=== PATIENT | male | born 1960 | race Two or more races ===

== ENCOUNTER → 2023-08-23 07:19 | Outpatient (CLI) | payer OTHER ==
[~2023-08-23 07:19] MED LIST: AMLODIPINE-OLM1 EAC2; ELIQUIS5 MG PO; GRALISE600 MG; LASIX20 MG; METFORMIN HCL1000 M2; VASOTEC20 MG
== END | disposition home or self-care (01) ==
LOC: NUCLEAR 07:19
DX: I87.2 Venous insufficiency (chronic) (peripheral) (principal); I50.9 Heart failure, unspecified; I48.91 Unspecified atrial fibrillation; R60.0 Localized edema

== ENCOUNTER 2023-08-23 09:01 | Emergency (ER) | payer OTHER ==
[~2023-08-23] VITALS: Ht 175.3 cm; Wt 118.8 kg
[2023-08-23] MEDS ORDERED: VASOTEC20 MG (09:28)
[2023-08-23] MEDS ORDERED: ELIQUIS5 MG PO (09:28)
[2023-08-23] MEDS ORDERED: METFORMIN HCL1000 M2 (09:29)
[2023-08-23] MEDS ORDERED: LASIX20 MG (09:29)
[2023-08-23] MEDS ORDERED: GRALISE600 MG (09:30)
[2023-08-23] MEDS ORDERED: AMLODIPINE-OLM1 EAC2 (09:30)
[2023-08-23] MEDS ORDERED: CEFTRIAXONE SODIUM 2,000 MG VIAL IV STA (09:51)
[2023-08-23 10:40] LABS: HEMOGLOBIN 11.4 g/dL (13-16.00); MEAN CELL VOLUME 82.2 fL (80.0-100.00); MEAN CORPUSCULAR HEMOGLOBIN 27.6 pg (27.00-32.0); MEAN CORPUSCULAR HGB CONC 33.6 g/dl (32.0-36.0); PLATELET COUNT 195 K/uL (150-450); RED BLOOD COUNT 4.14 M/uL (4.00-6.00); RED CELL DISTRIBUTION WIDTH 15.9 % (11.5-14.5)
[2023-08-23 11:50] LABS: CALCIUM 8.9 mg/dL (8.5-10.1); CREATININE SERUM 1.09 mg/dL (0.70-1.30); GFR 67.89; POTASSIUM 3.88 mEq/L (3.5-5.1)
[2023-08-23 12:24] LABS: PH,URINE 6.5 (5.0-8.0); URINE APPEARANCE Clear; URINE BILIRRUBIN Negative (NEGATIVE); URINE BLOOD Negative; URINE COLOR Yellow; URINE LEUKOCYTE Negative; URINE NITRATE Negative
[2023-08-23 12:25] LABS: URINE BACTERIA 7.5 uL (0.0-1933); URINE EPITHELIAL CELLS 1.6 uL (0.0-38.8); URINE WBC 4.5 uL (0.0-23.2)
[2023-08-23 12:26] LABS: URINE GLUCOSE >=1000 MG/DL (NEGATIVE); URINE PROTEIN 100 (NEGATIVE); URINE RBC 1.5 uL (0.0-20.8)
== END 2023-08-23 12:20 | disposition home or self-care (01) ==
LOC: ER 09:02
PROVIDERS: General Practice
DX: R60.0 Localized edema (principal); L03.115 Cellulitis of right lower limb
CPT/HCPCS: 36415; 96365; 99282; J0696

== ENCOUNTER 2023-09-09 14:59 | Emergency (ER) | payer OTHER ==
[~2023-09-09] VITALS: Ht 175.3 cm; Wt 118.8 kg
[2023-09-09] MEDS ORDERED: PROTONIX20 MG (15:49)
[2023-09-09] MEDS ORDERED: TRANDATE300 MG (15:49)
[2023-09-09 17:29] LABS: HEMATOCRIT 36.2 % (39.0-48.0); HEMOGLOBIN 12.2 g/dL (13-16.00); MEAN CELL VOLUME 83.9 fL (80.0-100.00); MEAN CORPUSCULAR HEMOGLOBIN 28.1 pg (27.00-32.0); MEAN CORPUSCULAR HGB CONC 33.6 g/dl (32.0-36.0); PLATELET COUNT 260 K/uL (150-450); RED BLOOD COUNT 4.32 M/uL (4.00-6.00); RED CELL DISTRIBUTION WIDTH 15.7 % (11.5-14.5)
[2023-09-09 17:49] LABS: INR 1.09; PARTIAL THROMBOPLASTIN TIME 31.4 SECONDS (22.0-34.0); PROTHROMBIN TIME 11.4 SECONDS (9.0-11.5)
[2023-09-09 17:53] LABS: ALBUMIN 3.9 gm/dL (3.4-5.0); BILIRUBIN TOTAL 0.53 mg/dL (0.3-1.2); CALCIUM 9.1 mg/dL (8.5-10.1); CREATININE SERUM 1.08 mg/dL (0.70-1.30); GFR 68.62; GLOBULINA 4.9 G/DL (2.4-3.5); POTASSIUM 3.72 mEq/L (3.5-5.1); TOTAL PROTEIN 8.8 gm/dL (6.4-8.2)
[2023-09-09 19:00] LABS: URINE BILIRRUBIN Negative (NEGATIVE); URINE BLOOD Negative; URINE COLOR Yellow; URINE GLUCOSE Negative (NEGATIVE); URINE KETONE Negative (NEGATIVE); URINE LEUKOCYTE Negative; URINE NITRATE Negative
[2023-09-09 19:05] LABS: URINE RBC 3.8 uL (0.0-20.8)
[2023-09-09 19:14] LABS: URINE APPEARANCE CLEAR; URINE BACTERIA 2.5 uL (0.0-1933); URINE CAST 0.15 uL (0.0-1.40); URINE EPITHELIAL CELLS 1.2 uL (0.0-38.8); URINE PROTEIN 300 (NEGATIVE); URINE WBC 0.6 uL (0.0-23.2)
[2023-09-09] MEDS ORDERED: levoFLOXacin IN DEXTROSE 5 % 500MG/100ML PIGGYBAG IV ONE ×2 (21:00→21:02)
== END 2023-09-09 23:49 | disposition home or self-care (01) ==
LOC: ER 15:00
PROVIDERS: Emergency Medicine
DX: S80.11XA Contusion of right lower leg, initial encounter (principal); E11.649 Type 2 diabetes mellitus with hypoglycemia without coma; Z79.84 Long term (current) use of oral hypoglycemic drugs; Z20.822 Contact with and (suspected) exposure to COVID-19
CPT/HCPCS: 36415; 73590; 96365; 99283; J1956

== ENCOUNTER 2024-02-04 11:16 | Inpatient (IN) | payer OTHER ==
[~2024-02-04] VITALS: Ht 175.3 cm; Wt 118.8 kg
[~2024-02-04 11:16] MED LIST changes: +PROTONIX20 MG; +TRANDATE300 MG
[2024-02-04 12:00] VITALS: BP 125/52; O2SAT 99
[2024-02-04] MEDS ORDERED: AMLODIPINE-BEN1 EAC1 PO (12:00)
[2024-02-04] MEDS ORDERED: ADMELOG100 UNIT/1 SUBCUTANEO (12:01)
[2024-02-04 13:12] LABS: HEMATOCRIT 33.7 % (39.0-48.0); HEMOGLOBIN 10.9 g/dL (13-16.00); MEAN CELL VOLUME 85.7 fL (80.0-100.00); MEAN CORPUSCULAR HEMOGLOBIN 27.7 pg (27.00-32.0); MEAN CORPUSCULAR HGB CONC 32.4 g/dl (32.0-36.0); PLATELET COUNT 180 K/uL (150-450); RED BLOOD COUNT 3.93 M/uL (4.00-6.00); RED CELL DISTRIBUTION WIDTH 15.6 % (11.5-14.5)
[2024-02-04 13:47] LABS: ALBUMIN 3.7 gm/dL (3.4-5.0); BILIRUBIN TOTAL 0.71 mg/dL (0.3-1.2); BILIRUBIN,CONJUGATED 0.3 mg/dL (0.0-0.2); BILIRUBIN,UNCONJUGATED 0.41 mg/dL (0.0-0.6); CALCIUM 8.9 mg/dL (8.5-10.1); CREATININE SERUM 1.46 mg/dL (0.70-1.30); GFR 48.46; POTASSIUM 4.45 mEq/L (3.5-5.1); TOTAL PROTEIN 8.3 gm/dL (6.4-8.2)
[2024-02-04 15:01] LABS: ABG PH 7.427 (7.35-7.45); ABG pCO2 40.3 mmHg (35-45)
[2024-02-04 15:02] LABS: BASE EXCESS 1.6 mmol/l; SaO2 90.2 %; Tco2 27.2 mmol/l; allen test SATISFACTORY; o2 21 %; puncture site RADIAL LEFT
[2024-02-04 17:10] LABS: PH,URINE 6.5 (5.0-8.0); URINE APPEARANCE Clear; URINE BILIRRUBIN Negative (NEGATIVE); URINE BLOOD Negative; URINE COLOR Yellow; URINE GLUCOSE Negative (NEGATIVE); URINE KETONE Negative (NEGATIVE); URINE LEUKOCYTE Negative; URINE NITRATE Negative; URINE PROTEIN 30 (NEGATIVE); URINE UROBILINOGEN 0.2 E.U./dl
[2024-02-04 17:14] LABS: URINE BACTERIA 13.4 uL (0.0-1933); URINE EPITHELIAL CELLS 2.3 uL (0.0-38.8); URINE RBC 3.6 uL (0.0-20.8); URINE WBC 4.8 uL (0.0-23.2)
[2024-02-04] MEDS ORDERED: IPRATROPIUM BROMIDE 0.5 MG/2.5 ML AMPUL.NEB IH SCH (19:01)
[2024-02-04] MEDS ORDERED: NITROGLYCERIN IN 5 % DEXTROSE 250 ML IV SCH (19:04)
[2024-02-04] MEDS ORDERED: FUROsemide 20 MG/2 ML VIAL IV SCH (19:04)
[2024-02-04] MEDS ORDERED: CEFTRIAXONE SODIUM 2,000 MG in 0.9 % SODIUM CHLORIDE 100 ML IV SCH (19:09)
[2024-02-04] MEDS ORDERED: INSULIN LISPRO 1,000 UNIT/10 ML UNITS SUBCUTANEO PRN (19:15)
[2024-02-04] MEDS ORDERED: DEXTROSE 50 % IN WATER 0.5 G/ML DISP.SYRIN IV PRN (19:15)
[2024-02-04] MEDS ORDERED: APIXABAN 5 MG TABLET PO SCH (21:00)
[2024-02-04 21:43] VITALS: BP 164/60; O2SAT 96
[2024-02-04 21:46] VITALS: BP 164/60
[2024-02-04] MEDS ORDERED: CEFTRIAXONE SODIUM 2,000 MG VIAL ONE (22:23)
[2024-02-04] MEDS ORDERED: FUROsemide 20 MG/2 ML VIAL ONE (22:23)
[2024-02-04] MEDS ORDERED: NITROGLYCERIN IN 5 % DEXTROSE 50 MG/250 ML BOTTLE IV ONE (22:24)
[2024-02-04] MEDS ORDERED: INSULIN LISPRO 1,000 UNIT/10 ML UNITS SUBCUTANEO ONE (23:00)
[2024-02-04 23:28] VITALS: BP 129/52; O2SAT 100
[2024-02-04 23:28] LABS: INR 1.17; PARTIAL THROMBOPLASTIN TIME 26.1 SECONDS (22.0-34.0); PROTHROMBIN TIME 12.6 SECONDS (9.0-11.5)
[2024-02-05] VITALS (22 sets, daily range): BP systolic 125–190; BP diastolic 56–87; O2SAT 89–100
[2024-02-05] MEDS ORDERED: FUROsemide 20 MG/2 ML VIAL ONE (00:14)
[2024-02-05] MEDS ORDERED: IPRATROPIUM BROMIDE 0.5 MG/2.5 ML AMPUL.NEB IH ONE ×2 (00:14→08:33)
[2024-02-05] MEDS ORDERED: LEVALBUTEROL HCL 1.25 MG/3 ML SOLUTION IH ONE (08:28)
[2024-02-05] MEDS ORDERED: NITROGLYCERIN IN 5 % DEXTROSE 250 ML IV SCH (08:30)
[2024-02-05] MEDS ORDERED: FAMOTIDINE/PF 20 MG in 0.9 % SODIUM CHLORIDE 8 ML IV PUSH SCH (09:00)
[2024-02-05] MEDS ORDERED: ATORVASTATIN CALCIUM 40 MG TABLET PO SCH (09:00)
[2024-02-05] MEDS ORDERED: LABETALOL HCL 300 MG TABLET PO SCH (09:00)
[2024-02-05] MEDS ORDERED: INSULIN LISPRO 1,000 UNIT/10 ML UNITS SUBCUTANEO ONE ×2 (09:09→13:39)
[2024-02-05] MEDS ORDERED: AMLODIPINE BESYLATE 5 MG TABLET PO SCH (10:16)
[2024-02-05] MEDS ORDERED: hydrALAZINE HCL 25 MG TABLET PO SCH (10:20)
[2024-02-05 12:12] LABS: ALT/SGPT 20 U/L (12-78); AST/SGOT 24 U/L (15-37); LDH 203 U/L (87-241); PHOSPHOKINASE CREATININE 311 U/L (39-308)
[2024-02-05 16:23] LABS: ABG PH 7.425 (7.35-7.45); ABG pCO2 43.5 mmHg (35-45); SaO2 87.6 %
[2024-02-05 16:24] LABS: ABG PO2 51.9 mmHg (80-100); BASE EXCESS 3.1 mmol/l; BICARBONATE 27.9 mmol/l (23-25); Tco2 29.3 mmol/l; allen test SATISFACTORY; o2 36 %; puncture site RADIAL RIGHT
[2024-02-05] MEDS ORDERED: FUROsemide 20 MG/2 ML VIAL IV STA (16:42)
[2024-02-05] MEDS ORDERED: METOPROLOL SUCCINATE 50 MG TAB.SR.24H PO SCH (17:00)
[2024-02-05 18:42] LABS: ABG PH 7.426 (7.35-7.45); ABG PO2 114.6 mmHg (80-100); ABG pCO2 43.9 mmHg (35-45); BASE EXCESS 3.3 mmol/l; BICARBONATE 28.2 mmol/l (23-25); SaO2 98.6 %; Tco2 29.6 mmol/l; allen test SATISFACTORY; o2 100 %; puncture site RADIAL RIGHT
[2024-02-05] MEDS ORDERED: FUROsemide 20 MG/2 ML VIAL IV SCH (21:00)
[2024-02-06] VITALS (23 sets, daily range): BP systolic 143–184; BP diastolic 55–89; O2SAT 95–100
[2024-02-06 07:28] LABS: HEMATOCRIT 30.7 % (39.0-48.0); HEMOGLOBIN 10.5 g/dL (13-16.00); MEAN CELL VOLUME 84.3 fL (80.0-100.00); MEAN CORPUSCULAR HEMOGLOBIN 28.9 pg (27.00-32.0); MEAN CORPUSCULAR HGB CONC 34.3 g/dl (32.0-36.0); RED BLOOD COUNT 3.65 M/uL (4.00-6.00); RED CELL DISTRIBUTION WIDTH 15.2 % (11.5-14.5)
[2024-02-06 07:57] LABS: CALCIUM 8.6 mg/dL (8.5-10.1); CREATININE SERUM 1.13 mg/dL (0.70-1.30); GFR 65.13; PHOSPHOROUS 3.6 mg/dL (2.5-4.9); POTASSIUM 4.03 mEq/L (3.5-5.1)
[2024-02-06 08:04] LABS: PLATELET COUNT 117 K/uL (150-450)
[2024-02-06] MEDS ORDERED: hydrALAZINE HCL 25 MG,hydrALAZINE HCL 50 MG PO SCH (09:00)
[2024-02-06] MEDS ORDERED: CHLORHEXIDINE GLUCONATE 120 ML BOTTLE TOP ONE (10:00)
[2024-02-06] MEDS ORDERED: CLEVIDIPINE BUTYRATE 100 ML IV SCH (12:45)
[2024-02-06] MEDS ORDERED: FUROsemide 20 MG/2 ML VIAL IV SCH (17:00)
[2024-02-07] VITALS: BP 170/68; O2SAT 95
[2024-02-07 18:46] LABS: PLEURAL FLUID APPEARANCE CLOUDY; PLEURAL FLUID COLOR YELLOW
[2024-02-07 19:03] LABS: TP PLEURAL FLUID 2.3 g/dl
[2024-02-07 20:34] LABS: MONONUCLEAR 83 %; POLYMORPHONUCLEAR 17 %
[2024-02-08 06:22] LABS: HEMATOCRIT 31.9 % (39.0-48.0); HEMOGLOBIN 10.2 g/dL (13-16.00); MEAN CELL VOLUME 88.5 fL (80.0-100.00); MEAN CORPUSCULAR HEMOGLOBIN 28.4 pg (27.00-32.0); MEAN CORPUSCULAR HGB CONC 32.1 g/dl (32.0-36.0); PLATELET COUNT 198 K/uL (150-450); RED BLOOD COUNT 3.61 M/uL (4.00-6.00); RED CELL DISTRIBUTION WIDTH 15.6 % (11.5-14.5)
[2024-02-08 07:29] LABS: ALBUMIN 2.6 gm/dL (3.4-5.0); BILIRUBIN TOTAL 1.04 mg/dL (0.3-1.2); CALCIUM 8.2 mg/dL (8.5-10.1); CREATININE SERUM 0.97 mg/dL (0.70-1.30); GFR 77.67; MAGNESIUM 2.1 mg/dL (1.8-2.4); PHOSPHOROUS 2.7 mg/dL (2.5-4.9); POTASSIUM 3.55 mEq/L (3.5-5.1); TOTAL PROTEIN 6.6 gm/dL (6.4-8.2)
[2024-02-08 07:30] VITALS: BP 161/64; O2SAT 100
[2024-02-08 10:05] LABS: ABG PH 7.434 (7.35-7.45); ABG PO2 157.5 mmHg (80-100); ABG pCO2 40.9 mmHg (35-45); BASE EXCESS 2.3 mmol/l; BICARBONATE 26.7 mmol/l (23-25); SaO2 99.4 %; allen test SATISFACTORY; o2 28 %; puncture site RADIAL LEFT
[2024-02-08 12:28] VITALS: BP 160/61; O2SAT 100
[2024-02-08] MEDS ORDERED: hydrALAZINE HCL 50 MG TABLET PO NR (12:45)
[2024-02-08 15:40] VITALS: BP 163/47; O2SAT 100
[2024-02-08] MEDS ORDERED: AMLODIPINE BESYLATE 5 MG TABLET PO SCH (17:00)
[2024-02-08] MEDS ORDERED: hydrALAZINE HCL 50 MG TABLET PO SCH (17:00)
[2024-02-08] MEDS ORDERED: ISOSORBIDE DINITRATE 20 MG TABLET PO SCH (17:00)
[2024-02-08] MEDS ORDERED: METROnidazole 500 MG TABLET PO SCH (17:00)
[2024-02-08 18:18] VITALS: O2SAT 96
[2024-02-08 18:54] VITALS: BP 155/63; O2SAT 96
[2024-02-08 23:48] VITALS: BP 168/68; O2SAT 97
[2024-02-09] VITALS (7 sets, daily range): BP systolic 160–180; BP diastolic 75–76; O2SAT 96–100
[2024-02-09] MEDS ORDERED: IRBESARTAN 150 MG TABLET PO SCH (09:00)
[2024-02-09] MEDS ORDERED: IRBESARTAN 300 MG TABLET PO SCH (09:00)
[2024-02-09] MEDS ORDERED: AMLODIPINE BESYLATE 5 MG TABLET PO SCH (09:00)
[2024-02-09] MEDS ORDERED: NIFEDIPINE 60 MG TAB.SA.OSM PO SCH (16:34)
[2024-02-09] MEDS ORDERED: HYDROCHLOROTHIAZIDE 12.5 MG CAPSULE PO SCH (16:41)
[2024-02-09] MEDS ORDERED: FUROsemide 20 MG/2 ML VIAL IV SCH (21:00)
[2024-02-10] VITALS (8 sets, daily range): BP systolic 137–194; BP diastolic 67–75; O2SAT 95–99
[2024-02-10 06:28] LABS: HEMATOCRIT 32.7 % (39.0-48.0); HEMOGLOBIN 11.3 g/dL (13-16.00); MEAN CELL VOLUME 82.5 fL (80.0-100.00); MEAN CORPUSCULAR HEMOGLOBIN 28.4 pg (27.00-32.0); MEAN CORPUSCULAR HGB CONC 34.4 g/dl (32.0-36.0); PLATELET COUNT 270 K/uL (150-450); RED BLOOD COUNT 3.97 M/uL (4.00-6.00); RED CELL DISTRIBUTION WIDTH 15.1 % (11.5-14.5)
[2024-02-10 07:46] LABS: ALBUMIN 2.8 gm/dL (3.4-5.0); BILIRUBIN TOTAL 0.71 mg/dL (0.3-1.2); CALCIUM 8.5 mg/dL (8.5-10.1); CREATININE SERUM 0.86 mg/dL (0.70-1.30); GFR 89.25; GLOBULINA 4.3 G/DL (2.4-3.5); MAGNESIUM 2.3 mg/dL (1.8-2.4); PHOSPHOROUS 3.6 mg/dL (2.5-4.9); POTASSIUM 4.11 mEq/L (3.5-5.1); TOTAL PROTEIN 7.1 gm/dL (6.4-8.2)
[2024-02-10] MEDS ORDERED: NIFEDIPINE 30 MG TAB.SA.OSM PO STA (12:08)
[2024-02-10] MEDS ORDERED: HYDROCHLOROTHIAZIDE 12.5 MG CAPSULE PO STA (12:08)
[2024-02-10] MEDS ORDERED: LIPITOR40 M1 PO (14:51)
[2024-02-10] MEDS ORDERED: DOXAZOSIN MESYLA4 MG PO (14:51)
[2024-02-10] MEDS ORDERED: ELIQUIS5 MG PO (14:51)
[2024-02-10] MEDS ORDERED: ISOSORBIDE DINI20 MG PO (14:52)
[2024-02-10] MEDS ORDERED: AVAPRO300 MG PO (14:52)
[2024-02-10] MEDS ORDERED: HYDROCHLOROTHIA25 MG PO (14:53)
[2024-02-10] MEDS ORDERED: TOPROL XL50 M1 PO (14:53)
[2024-02-10] MEDS ORDERED: PROCARDIA XL90 MG PO (14:53)
[2024-02-10] MEDS ORDERED: HYDRALAZINE HCL50 MG PO (14:53)
[2024-02-10] MEDS ORDERED: ECOTRIN81 MG PO (14:54)
[2024-02-10] MEDS ORDERED: hydrALAZINE HCL 50 MG TABLET PO SCH (17:00)
[2024-02-10] MEDS ORDERED: DOXAZOSIN MESYLATE 4 MG TABLET PO SCH (17:00)
[2024-02-10] MEDS ORDERED: FAMOtidine 20 MG TABLET PO SCH (21:00)
[2024-02-11] MEDS ORDERED: FUROsemide 20 MG/2 ML VIAL IV SCH (09:00)
[2024-02-11] MEDS ORDERED: HYDROCHLOROTHIAZIDE 25 MG TABLET PO SCH (09:00)
[2024-02-11] MEDS ORDERED: NIFEDIPINE 90 MG TAB.SA.OSM PO SCH (09:00)
== END 2024-02-10 15:36 | disposition home or self-care (01) | DRG 291 ==
LOC: ER 11:18 → ICU 19:23 → ICU-2 19:23 → ICU 02-05 19:48 → MEDI 02-08 18:24
PROVIDERS: General Practice; Internal Medicine; Radiology Vascular & Interventional Radiology; ADMIT Internal Medicine; ATTEND Internal Medicine
PROC: BW24ZZZ Computerized Tomography (CT Scan) of Chest and Abdomen (ICD-10-PCS; 2024-02-04)
PROC: B54DZZZ Ultrasonography of Bilateral Lower Extremity Veins (ICD-10-PCS; 2024-02-04)
PROC: BW40ZZZ Ultrasonography of Abdomen (ICD-10-PCS; 2024-02-05)
PROC: B24BZZZ Ultrasonography of Heart with Aorta (ICD-10-PCS; 2024-02-05)
PROC: 0W993ZX Drainage of Right Pleural Cavity, Percutaneous Approach, Diagnostic (ICD-10-PCS; principal; 2024-02-07)
PROC: 02HV33Z Insertion of Infusion Device into Superior Vena Cava, Percutaneous Approach (ICD-10-PCS; 2024-02-07)
PROC: 4A12X4Z Monitoring of Cardiac Electrical Activity, External Approach (ICD-10-PCS; 2024-02-08)
DX: I11.0 Hypertensive heart disease with heart failure (principal); J18.9 Pneumonia, unspecified organism; N17.9 Acute kidney failure, unspecified; L03.116 Cellulitis of left lower limb; I48.20 Chronic atrial fibrillation, unspecified; K80.00 Calculus of gallbladder with acute cholecystitis without obstruction; I50.9 Heart failure, unspecified; E11.9 Type 2 diabetes mellitus without complications; Z79.4 Long term (current) use of insulin; E78.5 Hyperlipidemia, unspecified; D64.9 Anemia, unspecified; D69.6 Thrombocytopenia, unspecified; I25.10 Atherosclerotic heart disease of native coronary artery without angina pectoris

== ENCOUNTER 2024-04-02 12:28 | Inpatient (IN) | payer OTHER ==
[~2024-04-02] VITALS: Ht 175.3 cm; Wt 118.8 kg
[~2024-04-02 12:28] MED LIST changes: +ADMELOG100 UNIT/1 SUBCUTANEO; +AMLODIPINE-BEN1 EAC1 PO; +AVAPRO300 MG PO; +DOXAZOSIN MESYLA4 MG PO; +ECOTRIN81 MG PO; +HYDRALAZINE HCL50 MG PO; +HYDROCHLOROTHIA25 MG PO; +ISOSORBIDE DINI20 MG PO; +LIPITOR40 M1 PO; +PROCARDIA XL90 MG PO; +TOPROL XL50 M1 PO
[2024-04-02] MEDS ORDERED: FUROsemide 20 MG/2 ML VIAL IV ONE (13:15)
[2024-04-02] MEDS ORDERED: LEVALBUTEROL HCL 1.25 MG/3 ML SOLUTION IH ONE ×2 (13:15→14:30)
[2024-04-02] MEDS ORDERED: FUROsemide 20 MG/2 ML VIAL ONE (13:40)
[2024-04-02 14:04] LABS: HEMOGLOBIN 10.4 g/dL (13-16.00); MEAN CELL VOLUME 84.9 fL (80.0-100.00); MEAN CORPUSCULAR HEMOGLOBIN 27.6 pg (27.00-32.0); MEAN CORPUSCULAR HGB CONC 32.6 g/dl (32.0-36.0); PLATELET COUNT 192 K/uL (150-450); RED BLOOD COUNT 3.77 M/uL (4.00-6.00); RED CELL DISTRIBUTION WIDTH 16.4 % (11.5-14.5)
[2024-04-02 14:22] LABS: ALBUMIN 3.8 gm/dL (3.4-5.0); BILIRUBIN TOTAL 0.5 mg/dL (0.3-1.2); CALCIUM 8.9 mg/dL (8.5-10.1); CREATININE SERUM 2.44 mg/dL (0.70-1.30); GFR 26.71; GLOBULINA 5.1 G/DL (2.4-3.5); POTASSIUM 5.03 mEq/L (3.5-5.1); TOTAL PROTEIN 8.9 gm/dL (6.4-8.2)
[2024-04-02 14:33] LABS: PH,URINE 5.5 (5.0-8.0); URINE APPEARANCE Clear; URINE BILIRRUBIN Negative (NEGATIVE); URINE BLOOD Negative; URINE COLOR Yellow; URINE GLUCOSE Negative (NEGATIVE); URINE KETONE Negative (NEGATIVE); URINE LEUKOCYTE Negative; URINE NITRATE Negative; URINE PROTEIN Trace (NEGATIVE); URINE UROBILINOGEN 0.2 E.U./dl
[2024-04-02 14:37] LABS: URINE BACTERIA 10.9 uL (0.0-1933); URINE CAST 1.62 uL (0.0-1.40); URINE WBC 6.3 uL (0.0-23.2)
[2024-04-02 14:37] LABS: ABG PH 7.378 (7.35-7.45); ABG PO2 69.9 mmHg (80-100); ABG pCO2 40.9 mmHg (35-45); BASE EXCESS -1.5 mmol/l; BICARBONATE 23.5 mmol/l (23-25); SaO2 93.3 %; Tco2 24.8 mmol/l
[2024-04-02 14:45] LABS: URINE RBC 0.8 uL (0.0-20.8)
[2024-04-02 15:03] LABS: allen test SATISFACTORY; o2 21 %; puncture site RADIAL RIGHT
[2024-04-02 15:34] LABS: INR 1.05; PARTIAL THROMBOPLASTIN TIME 27.6 SECONDS (22.0-34.0); PROTHROMBIN TIME 11.4 SECONDS (9.0-11.5)
[2024-04-02] MEDS ORDERED: NIFEDIPINE 90 MG TAB.SA.OSM PO SCH (16:22)
[2024-04-02] MEDS ORDERED: DEXTROSE 50 % IN WATER 0.5 G/ML DISP.SYRIN IV PRN (16:30)
[2024-04-02] MEDS ORDERED: INSULIN LISPRO 1,000 UNIT/10 ML UNITS SUBCUTANEO PRN (16:30)
[2024-04-02] MEDS ORDERED: APIXABAN 2.5 MG TABLET PO SCH (20:24)
[2024-04-02] MEDS ORDERED: ISOSORBIDE DINITRATE 20 MG TABLET PO SCH (20:28)
[2024-04-02] MEDS ORDERED: hydrALAZINE HCL 50 MG TABLET PO SCH (20:29)
[2024-04-02 21:32] VITALS: BP 161/64
[2024-04-02 23:22] VITALS: BP 132/70; O2SAT 95
[2024-04-03] VITALS (7 sets, daily range): BP systolic 149–176; BP diastolic 68–82; O2SAT 92–97
[2024-04-03] MEDS ORDERED: FUROsemide 20 MG TABLET PO SCH (01:00)
[2024-04-03 06:10] LABS: HEMATOCRIT 30.1 % (39.0-48.0); HEMOGLOBIN 10.2 g/dL (13-16.00); MEAN CELL VOLUME 83.4 fL (80.0-100.00); MEAN CORPUSCULAR HEMOGLOBIN 28.2 pg (27.00-32.0); MEAN CORPUSCULAR HGB CONC 33.8 g/dl (32.0-36.0); PLATELET COUNT 193 K/uL (150-450); RED CELL DISTRIBUTION WIDTH 16.2 % (11.5-14.5)
[2024-04-03 07:33] LABS: ALBUMIN 3.6 gm/dL (3.4-5.0); BILIRUBIN TOTAL 0.66 mg/dL (0.3-1.2); CALCIUM 8.8 mg/dL (8.5-10.1); CREATININE SERUM 2.07 mg/dL (0.70-1.30); GFR 32.29; GLOBULINA 4.3 G/DL (2.4-3.5); PHOSPHOROUS 4.2 mg/dL (2.5-4.9); POTASSIUM 5.11 mEq/L (3.5-5.1); TOTAL PROTEIN 7.9 gm/dL (6.4-8.2)
[2024-04-03 07:46] LABS: TSH 6.42 uIU/mL (0.358-3.74)
[2024-04-03] MEDS ORDERED: PANTOPRAZOLE SODIUM 40 MG/VIAL VIAL IV SCH (09:00)
[2024-04-03] MEDS ORDERED: METOPROLOL SUCCINATE 50 MG TAB.SR.24H PO SCH ×2 (09:00→17:00)
[2024-04-03 09:29] LABS: ABG PH 7.357 (7.35-7.45); ABG PO2 64.5 mmHg (80-100); ABG pCO2 43.2 mmHg (35-45); BASE EXCESS -1.8 mmol/l; BICARBONATE 23.7 mmol/l (23-25); SaO2 91.1 %
[2024-04-03] MEDS ORDERED: SODIUM POLYSTYRENE SULFONATE 30G/8 TSP PO STA (10:19)
[2024-04-03 14:22] LABS: allen test SATISFACTORY; o2 32 %; puncture site RADIAL RIGHT
[2024-04-03] MEDS ORDERED: ATORVASTATIN CALCIUM 40 MG TABLET PO SCH (17:00)
[2024-04-03] MEDS ORDERED: DOXAZOSIN MESYLATE 4 MG TABLET PO SCH (17:00)
[2024-04-03 20:30] LABS: TP PLEURAL FLUID 2.9 g/dl
[2024-04-03 20:45] LABS: PLEURAL FLUID APPEARANCE HAZY; PLEURAL FLUID COLOR YELLOW
[2024-04-03 21:03] LABS: MONONUCLEAR 95 %; POLYMORPHONUCLEAR 5 %
[2024-04-03] MEDS ORDERED: INSULIN GLARGINE,HUM.REC.ANLOG 1,000 UNITS/10 ML UNITS SUBCUTANEO STA (21:50)
[2024-04-04] VITALS (9 sets, daily range): BP systolic 155–175; BP diastolic 78–90; O2SAT 94–99
[2024-04-04] MEDS ORDERED: LEVOTHYROXINE SODIUM 25 MCG TABLET PO SCH (06:00)
[2024-04-04] MEDS ORDERED: INSULIN LISPRO 1,000 UNIT/10 ML UNITS SUBCUTANEO SCH (08:00)
[2024-04-04] MEDS ORDERED: ACETAMINOPHEN 325 MG TABLET PO PRN (08:30)
[2024-04-04] MEDS ORDERED: METOPROLOL SUCCINATE 50 MG TAB.SR.24H PO SCH ×2 (09:00→17:00)
[2024-04-04 12:31] LABS: HEMOGLOBIN 10.7 g/dL (13-16.00); MEAN CELL VOLUME 83.4 fL (80.0-100.00); MEAN CORPUSCULAR HEMOGLOBIN 27.8 pg (27.00-32.0); MEAN CORPUSCULAR HGB CONC 33.3 g/dl (32.0-36.0); PLATELET COUNT 209 K/uL (150-450); RED BLOOD COUNT 3.84 M/uL (4.00-6.00); RED CELL DISTRIBUTION WIDTH 16.1 % (11.5-14.5)
[2024-04-04 13:05] LABS: ALBUMIN 3.4 gm/dL (3.4-5.0); BILIRUBIN TOTAL 0.8 mg/dL (0.3-1.2); CALCIUM 9.1 mg/dL (8.5-10.1); CREATININE SERUM 1.47 mg/dL (0.70-1.30); GFR 47.93; GLOBULINA 4.3 G/DL (2.4-3.5); POTASSIUM 4.88 mEq/L (3.5-5.1); TOTAL PROTEIN 7.7 gm/dL (6.4-8.2)
[2024-04-04] MEDS ORDERED: APIXABAN 5 MG TABLET PO SCH (17:00)
[2024-04-04] MEDS ORDERED: INSULIN GLARGINE,HUM.REC.ANLOG 1,000 UNITS/10 ML UNITS SUBCUTANEO SCH (21:00)
[2024-04-04] MEDS ORDERED: FUROsemide 20 MG TABLET PO SCH (21:00)
[2024-04-05] VITALS (9 sets, daily range): BP systolic 134–179; BP diastolic 61–70; O2SAT 92–99
[2024-04-05] MEDS ORDERED: FUROsemide 40 MG TABLET PO SCH (21:00)
[2024-04-06 00:29] VITALS: O2SAT 99
[2024-04-06 01:13] VITALS: BP 141/60
[2024-04-06 04:16] VITALS: O2SAT 99
[2024-04-06 05:39] LABS: HEMATOCRIT 30.3 % (39.0-48.0); MEAN CELL VOLUME 84.2 fL (80.0-100.00); MEAN CORPUSCULAR HEMOGLOBIN 27.8 pg (27.00-32.0); PLATELET COUNT 152 K/uL (150-450); RED CELL DISTRIBUTION WIDTH 16.4 % (11.5-14.5)
[2024-04-06] MEDS ORDERED: LEVOTHYROXINE SODIUM 50 MCG TABLET PO SCH (06:00)
[2024-04-06 06:30] LABS: ALBUMIN 3.1 gm/dL (3.4-5.0); BILIRUBIN TOTAL 0.78 mg/dL (0.3-1.2); CALCIUM 8.6 mg/dL (8.5-10.1); CREATININE SERUM 1.51 mg/dL (0.70-1.30); GFR 46.46; POTASSIUM 4.22 mEq/L (3.5-5.1); TOTAL PROTEIN 7.1 gm/dL (6.4-8.2)
[2024-04-06 08:59] VITALS: BP 167/74
[2024-04-06 09:30] VITALS: O2SAT 90
[2024-04-06 14:54] VITALS: BP 150/61; O2SAT 92
[2024-04-06] MEDS ORDERED: ELIQUIS5 MG PO (14:55)
[2024-04-06] MEDS ORDERED: LIPITOR40 M1 PO (14:55)
[2024-04-06] MEDS ORDERED: DOXAZOSIN MESYLA4 MG PO (14:55)
[2024-04-06] MEDS ORDERED: ISOSORBIDE DINI20 MG PO (14:56)
[2024-04-06] MEDS ORDERED: TOPROL XL50 M1 PO (14:56)
[2024-04-06] MEDS ORDERED: HYDRALAZINE HCL50 MG PO (14:56)
[2024-04-06] MEDS ORDERED: PROCARDIA XL90 MG PO (14:56)
[2024-04-06] MEDS ORDERED: FUROSEMIDE40 MG PO (14:57)
[2024-04-06] MEDS ORDERED: LEVOTHYROXINE50 MCG PO (14:57)
[2024-04-06] MEDS ORDERED: LANTUS SOL100 UNIT/1 SUBCUTANEO (15:05)
[2024-04-06] MEDS ORDERED: HUMULIN 70100 UNIT/1 SUBCUTANEO (15:05)
[2024-04-06] MEDS ORDERED: DOXAZOSIN MESYLATE 4 MG TABLET PO SCH (17:00)
[2024-04-07] MEDS ORDERED: FUROsemide 40 MG TABLET PO SCH (09:00)
== END 2024-04-06 16:27 | disposition home or self-care (01) | DRG 291 ==
LOC: ER 12:31 → MEDI 20:48
PROVIDERS: General Practice; Radiology Vascular & Interventional Radiology; ADMIT Internal Medicine; ATTEND Internal Medicine
PROC: BW24ZZZ Computerized Tomography (CT Scan) of Chest and Abdomen (ICD-10-PCS; 2024-04-02)
PROC: B24BZZZ Ultrasonography of Heart with Aorta (ICD-10-PCS; 2024-04-02)
PROC: 0W993ZX Drainage of Right Pleural Cavity, Percutaneous Approach, Diagnostic (ICD-10-PCS; principal; 2024-04-03)
PROC: 4A12X4Z Monitoring of Cardiac Electrical Activity, External Approach (ICD-10-PCS; 2024-04-03)
PROC: 0W9B3ZZ Drainage of Left Pleural Cavity, Percutaneous Approach (ICD-10-PCS; 2024-04-04)
DX: I13.0 Hypertensive heart and chronic kidney disease with heart failure and stage 1 through stage 4 chronic kidney disease, or unspecified chronic kidney disease (principal); I50.33 Acute on chronic diastolic (congestive) heart failure; I48.20 Chronic atrial fibrillation, unspecified; N17.9 Acute kidney failure, unspecified; E11.22 Type 2 diabetes mellitus with diabetic chronic kidney disease; N18.9 Chronic kidney disease, unspecified; D63.1 Anemia in chronic kidney disease; Z79.4 Long term (current) use of insulin; E87.5 Hyperkalemia; I25.10 Atherosclerotic heart disease of native coronary artery without angina pectoris; E11.65 Type 2 diabetes mellitus with hyperglycemia; E03.9 Hypothyroidism, unspecified; E78.5 Hyperlipidemia, unspecified

== ENCOUNTER 2024-04-13 09:40 | Inpatient (IN) | payer OTHER ==
[~2024-04-13] VITALS: Ht 175.3 cm; Wt 122.0 kg
[~2024-04-13 09:40] MED LIST changes: +FUROSEMIDE40 MG PO; +HUMULIN 70100 UNIT/1 SUBCUTANEO; +LANTUS SOL100 UNIT/1 SUBCUTANEO; +LEVOTHYROXINE50 MCG PO
[2024-04-13] MEDS ORDERED: FUROsemide 40 MG/4 ML VIAL IV ONE (10:00)
[2024-04-13 10:17] LABS: ABG PH 7.411 (7.35-7.45); ABG PO2 98.4 mmHg (80-100); ABG pCO2 41.4 mmHg (35-45); BASE EXCESS 0.9 mmol/l; BICARBONATE 25.7 mmol/l (23-25); SaO2 97.7 %; Tco2 26.9 mmol/l
[2024-04-13 10:27] LABS: HEMATOCRIT 28.4 % (39.0-48.0); HEMOGLOBIN 9.4 g/dL (13-16.00); MEAN CELL VOLUME 82.9 fL (80.0-100.00); MEAN CORPUSCULAR HEMOGLOBIN 27.5 pg (27.00-32.0); MEAN CORPUSCULAR HGB CONC 33.2 g/dl (32.0-36.0); PLATELET COUNT 257 K/uL (150-450); RED BLOOD COUNT 3.42 M/uL (4.00-6.00); RED CELL DISTRIBUTION WIDTH 16.1 % (11.5-14.5)
[2024-04-13 11:02] LABS: BILIRUBIN TOTAL 0.29 mg/dL (0.3-1.2); CALCIUM 8.5 mg/dL (8.5-10.1); CREATININE SERUM 1.7 mg/dL (0.70-1.30); GFR 40.53; GLOBULINA 4.7 G/DL (2.4-3.5); POTASSIUM 5.4 mEq/L (3.5-5.1); TOTAL PROTEIN 7.7 gm/dL (6.4-8.2)
[2024-04-13 11:02] LABS: o2 32 %
[2024-04-13 11:04] LABS: puncture site RADIAL RIGHT
[2024-04-13 11:04] LABS: INR 1.06; PARTIAL THROMBOPLASTIN TIME 26.8 SECONDS (22.0-34.0); PROTHROMBIN TIME 11.5 SECONDS (9.0-11.5)
[2024-04-13 11:06] LABS: allen test SATISFACTORY
[2024-04-13] MEDS ORDERED: FUROsemide 20 MG/2 ML VIAL IV SCH (11:25)
[2024-04-13] MEDS ORDERED: SODIUM POLYSTYRENE SULFONATE 15 G/4 TSP TSP PO STA (11:54)
[2024-04-13 12:11] LABS: URINE APPEARANCE Clear; URINE BILIRRUBIN Negative (NEGATIVE); URINE BLOOD Negative; URINE COLOR Yellow; URINE GLUCOSE Negative (NEGATIVE); URINE KETONE Negative (NEGATIVE); URINE LEUKOCYTE Moderate; URINE NITRATE Negative; URINE PROTEIN Trace (NEGATIVE); URINE UROBILINOGEN 0.2 E.U./dl
[2024-04-13 12:14] LABS: URINE BACTERIA 2726.8 uL (0.0-1933); URINE CAST 6.03 uL (0.0-1.40); URINE EPITHELIAL CELLS 18.2 uL (0.0-38.8); URINE RBC 2.5 uL (0.0-20.8); URINE WBC 314.1 uL (0.0-23.2)
[2024-04-13] MEDS ORDERED: PANTOPRAZOLE SODIUM 40 MG/VIAL VIAL IV SCH (12:23)
[2024-04-13] MEDS ORDERED: IRON FUM,PS/FOLIC/BCOMP,C NO.9 1 CAP CAPSULE PO SCH (12:25)
[2024-04-13] MEDS ORDERED: INSULIN LISPRO 1,000 UNIT/10 ML UNITS SUBCUTANEO PRN (12:30)
[2024-04-13] MEDS ORDERED: DEXTROSE 50 % IN WATER 0.5 G/ML DISP.SYRIN IV PRN (12:30)
[2024-04-13] MEDS ORDERED: AMINO ACIDS/PROTEIN HYDROLYS 30 ML BLIST.PACK PO SCH (13:00)
[2024-04-13] MEDS ORDERED: ISOSORBIDE DINITRATE 20 MG TABLET PO SCH (13:00)
[2024-04-13 14:52] VITALS: O2SAT 94
[2024-04-13 15:20] VITALS: BP 122/56
[2024-04-13] MEDS ORDERED: APIXABAN 2.5 MG TABLET PO SCH (17:00)
[2024-04-13] MEDS ORDERED: ATORVASTATIN CALCIUM 40 MG TABLET PO SCH (17:00)
[2024-04-13] MEDS ORDERED: CEFTRIAXONE SODIUM 2,000 MG VIAL IV SCH (19:13)
[2024-04-13] MEDS ORDERED: METOPROLOL SUCCINATE 50 MG TAB.SR.24H PO SCH (21:00)
[2024-04-13] MEDS ORDERED: BUMETANIDE 2.5 MG/10 ML VIAL IV SCH (21:00)
[2024-04-14] VITALS (9 sets, daily range): BP systolic 136–166; BP diastolic 66–77; O2SAT 92–99
[2024-04-14 05:46] LABS: HEMATOCRIT 29.6 % (39.0-48.0); MEAN CORPUSCULAR HEMOGLOBIN 27.4 pg (27.00-32.0); PLATELET COUNT 250 K/uL (150-450); RED BLOOD COUNT 3.57 M/uL (4.00-6.00); RED CELL DISTRIBUTION WIDTH 15.8 % (11.5-14.5)
[2024-04-14 05:56] LABS: HEMOGLOBIN 9.8 g/dL (13-16.00)
[2024-04-14] MEDS ORDERED: LEVOTHYROXINE SODIUM 50 MCG TABLET PO SCH (06:00)
[2024-04-14 06:57] LABS: ALBUMIN 2.7 gm/dL (3.4-5.0); BILIRUBIN TOTAL 0.31 mg/dL (0.3-1.2); CALCIUM 8.4 mg/dL (8.5-10.1); CHOL HDL RATIO 1.6 (0-5.0); CREATININE SERUM 1.75 mg/dL (0.70-1.30); GFR 39.19; MAGNESIUM 2.2 mg/dL (1.8-2.4); PHOSPHOROUS 4.4 mg/dL (2.5-4.9); POTASSIUM 5.5 mEq/L (3.5-5.1); TOTAL PROTEIN 6.7 gm/dL (6.4-8.2)
[2024-04-14 07:42] LABS: TSH 5.32 uIU/mL (0.358-3.74)
[2024-04-14] MEDS ORDERED: APIXABAN 5 MG TABLET PO SCH (09:00)
[2024-04-14] MEDS ORDERED: NIFEDIPINE 60 MG TAB.SA.OSM PO NR (12:30)
[2024-04-14] MEDS ORDERED: SODIUM POLYSTYRENE SULFONATE 15 G/4 TSP TSP PO SCH (13:00)
[2024-04-15] VITALS (8 sets, daily range): BP systolic 135–150; BP diastolic 59–69; O2SAT 92–98
[2024-04-15 07:56] LABS: HEMATOCRIT 27.3 % (39.0-48.0); HEMOGLOBIN 9.1 g/dL (13-16.00); MEAN CELL VOLUME 82.7 fL (80.0-100.00); MEAN CORPUSCULAR HEMOGLOBIN 27.4 pg (27.00-32.0); MEAN CORPUSCULAR HGB CONC 33.2 g/dl (32.0-36.0); PLATELET COUNT 177 K/uL (150-450); RED CELL DISTRIBUTION WIDTH 16.1 % (11.5-14.5)
[2024-04-15 07:59] LABS: ALBUMIN 2.6 gm/dL (3.4-5.0); BILIRUBIN TOTAL 0.45 mg/dL (0.3-1.2); CALCIUM 8.1 mg/dL (8.5-10.1); CREATININE SERUM 1.65 mg/dL (0.70-1.30); GFR 41.95; GLOBULINA 3.9 G/DL (2.4-3.5); POTASSIUM 4.88 mEq/L (3.5-5.1); T4 FREE 1.18 NG/ML (0.76-1.46); TOTAL PROTEIN 6.5 gm/dL (6.4-8.2)
[2024-04-15] MEDS ORDERED: NIFEDIPINE 60 MG TAB.SA.OSM PO SCH ×2 (09:00)
[2024-04-15] MEDS ORDERED: MEROPENEM 500 MG/VIAL VIAL IV SCH (13:00)
[2024-04-16] VITALS (8 sets, daily range): BP systolic 132–167; BP diastolic 61–69; O2SAT 95–99
[2024-04-16] MEDS ORDERED: LEVOTHYROXINE SODIUM 75 MCG TABLET PO SCH (06:00)
[2024-04-16 07:51] LABS: ALBUMIN 2.6 gm/dL (3.4-5.0); CALCIUM 8.2 mg/dL (8.5-10.1); CREATININE SERUM 1.3 mg/dL (0.70-1.30); GFR 55.23; PHOSPHOROUS 3.5 mg/dL (2.5-4.9); POTASSIUM 4.15 mEq/L (3.5-5.1)
[2024-04-17] VITALS (8 sets, daily range): BP systolic 127–173; BP diastolic 58–72; O2SAT 92–100
[2024-04-17 07:02] LABS: ALBUMIN 2.8 gm/dL (3.4-5.0); BILIRUBIN TOTAL 0.38 mg/dL (0.3-1.2); CALCIUM 8.7 mg/dL (8.5-10.1); CREATININE SERUM 1.17 mg/dL (0.70-1.30); GFR 62.37; GLOBULINA 4.3 G/DL (2.4-3.5); PHOSPHOROUS 3.2 mg/dL (2.5-4.9); POTASSIUM 4.39 mEq/L (3.5-5.1); TOTAL PROTEIN 7.1 gm/dL (6.4-8.2)
[2024-04-17 07:09] LABS: C-REACTIVE PROTEIN 1.67 MG/DL (0.00-0.29)
[2024-04-17] MEDS ORDERED: INSULIN GLARGINE,HUM.REC.ANLOG 1,000 UNITS/10 ML UNITS SUBCUTANEO SCH (09:00)
[2024-04-17] MEDS ORDERED: BUMETANIDE 0.5 MG TABLET PO SCH (17:00)
[2024-04-17 19:01] LABS: HEMATOCRIT 31.7 % (39.0-48.0); HEMOGLOBIN 10.4 g/dL (13-16.00); MEAN CELL VOLUME 82.5 fL (80.0-100.00); MEAN CORPUSCULAR HGB CONC 32.8 g/dl (32.0-36.0); PLATELET COUNT 337 K/uL (150-450); RED BLOOD COUNT 3.84 M/uL (4.00-6.00); RED CELL DISTRIBUTION WIDTH 16.2 % (11.5-14.5)
[2024-04-17] MEDS ORDERED: NIFEDIPINE 30 MG TAB.SA.OSM PO STA (23:37)
[2024-04-18 00:28] VITALS: BP 170/72; O2SAT 97
[2024-04-18 06:16] LABS: PH,URINE 5.5 (5.0-8.0); URINE APPEARANCE Clear; URINE BILIRRUBIN Negative (NEGATIVE); URINE BLOOD Large; URINE COLOR Yellow; URINE KETONE Negative (NEGATIVE); URINE LEUKOCYTE Small; URINE NITRATE Negative; URINE PROTEIN 30 (NEGATIVE); URINE UROBILINOGEN 0.2 E.U./dl
[2024-04-18 06:20] LABS: URINE BACTERIA 211.7 uL (0.0-1933); URINE EPITHELIAL CELLS 4.5 uL (0.0-38.8); URINE RBC 469.7 uL (0.0-20.8); URINE WBC 68.7 uL (0.0-23.2)
[2024-04-18 06:25] LABS: URINE GLUCOSE 100 MG/DL (NEGATIVE)
[2024-04-18 08:44] VITALS: BP 173/79; O2SAT 97
[2024-04-18] MEDS ORDERED: NIFEDIPINE 90 MG TAB.SA.OSM PO SCH (09:00)
[2024-04-18] MEDS ORDERED: PANTOPRAZOLE SODIUM 40 MG TABLET.DR PO SCH (09:00)
[2024-04-18] MEDS ORDERED: BUMETANIDE 2.5 MG/10 ML VIAL IV SCH (09:00)
[2024-04-18] MEDS ORDERED: DOXAZOSIN MESYLATE 4 MG TABLET PO NR (11:00)
[2024-04-18 12:41] VITALS: O2SAT 97
[2024-04-18] MEDS ORDERED: DOXAZOSIN MESYLATE 4 MG TABLET PO STA (13:53)
[2024-04-18] MEDS ORDERED: DOXAZOSIN MESYLATE 4 MG TABLET PO SCH (17:00)
[2024-04-18 17:40] VITALS: BP 160/71
[2024-04-18 21:18] VITALS: BP 143/68
[2024-04-18 22:22] LABS: ABG PH 7.424 (7.35-7.45); ABG PO2 77.6 mmHg (80-100); ABG pCO2 44.5 mmHg (35-45); BASE EXCESS 3.5 mmol/l; BICARBONATE 28.5 mmol/l (23-25); SaO2 95.8 %; Tco2 29.8 mmol/l
[2024-04-18 22:54] LABS: allen test SATISFACTORY; o2 21 %; puncture site RADIAL LEFT
[2024-04-19 01:58] VITALS: BP 140/65; O2SAT 98
[2024-04-19 06:05] VITALS: O2SAT 99
[2024-04-19] MEDS ORDERED: INSULIN LISPRO 1,000 UNIT/10 ML UNITS SUBCUTANEO SCH (08:00)
[2024-04-19 09:31] VITALS: BP 104/77; O2SAT 97
[2024-04-19] MEDS ORDERED: LIPITOR40 M1 PO (12:53)
[2024-04-19] MEDS ORDERED: ELIQUIS5 MG PO (12:53)
[2024-04-19] MEDS ORDERED: INTEGRA PLUS C1 EACH PO (12:53)
[2024-04-19] MEDS ORDERED: DOXAZOSIN MESYLA2 MG PO (12:54)
[2024-04-19] MEDS ORDERED: ISOSORBIDE DINI20 MG PO (12:54)
[2024-04-19] MEDS ORDERED: PROCARDIA XL90 MG PO (12:55)
[2024-04-19] MEDS ORDERED: TOPROL XL50 M1 PO (12:55)
[2024-04-19] MEDS ORDERED: BUMETANIDE1 MG PO (12:55)
[2024-04-19] MEDS ORDERED: LEVOTHYROXINE75 MCG PO (12:56)
[2024-04-19] MEDS ORDERED: PROTEINEX-18 LI30 ML PO (12:56)
[2024-04-19] MEDS ORDERED: FINASTERIDE5 MG PO (12:56)
[2024-04-19] MEDS ORDERED: HUMULIN 70100 UNIT/1 SUBCUTANEO (12:57)
[2024-04-19] MEDS ORDERED: LANTUS SOL100 UNIT/1 SUBCUTANEO (12:58)
[2024-04-19 13:30] VITALS: O2SAT 97
[2024-04-19] MEDS ORDERED: BUMETANIDE 1 MG TABLET PO SCH (17:00)
[2024-04-20] MEDS ORDERED: FINASTERIDE 5 MG TABLET PO SCH (09:00)
== END 2024-04-19 14:01 | disposition home or self-care (01) | DRG 292 ==
LOC: ER 09:40 → SEC-K 12:40 → MEDI 14:01
PROVIDERS: Emergency Medicine; Internal Medicine Infectious Disease; Internal Medicine Nephrology; ADMIT Internal Medicine; ATTEND Internal Medicine
PROC: 4A12X4Z Monitoring of Cardiac Electrical Activity, External Approach (ICD-10-PCS; principal; 2024-04-13)
PROC: 0W993ZZ Drainage of Right Pleural Cavity, Percutaneous Approach (ICD-10-PCS; 2024-04-13)
PROC: BB24ZZZ Computerized Tomography (CT Scan) of Bilateral Lungs (ICD-10-PCS; 2024-04-13)
PROC: B246ZZZ Ultrasonography of Right and Left Heart (ICD-10-PCS; 2024-04-13)
PROC: BB24ZZZ Computerized Tomography (CT Scan) of Bilateral Lungs (ICD-10-PCS; 2024-04-13)
PROC: 0W9B3ZZ Drainage of Left Pleural Cavity, Percutaneous Approach (ICD-10-PCS; 2024-04-17)
PROC: BB24ZZZ Computerized Tomography (CT Scan) of Bilateral Lungs (ICD-10-PCS; 2024-04-17)
PROC: 0W993ZZ Drainage of Right Pleural Cavity, Percutaneous Approach (ICD-10-PCS; 2024-04-18)
PROC: BW4GZZZ Ultrasonography of Pelvic Region (ICD-10-PCS; 2024-04-18)
DX: I50.813 Acute on chronic right heart failure (principal); I13.0 Hypertensive heart and chronic kidney disease with heart failure and stage 1 through stage 4 chronic kidney disease, or unspecified chronic kidney disease; J90 Pleural effusion, not elsewhere classified; I48.20 Chronic atrial fibrillation, unspecified; N17.9 Acute kidney failure, unspecified; N39.0 Urinary tract infection, site not specified; N41.0 Acute prostatitis; D64.9 Anemia, unspecified; E87.5 Hyperkalemia; E11.65 Type 2 diabetes mellitus with hyperglycemia; R60.1 Generalized edema; I27.21 Secondary pulmonary arterial hypertension; N18.9 Chronic kidney disease, unspecified; E03.9 Hypothyroidism, unspecified; B96.20 Unspecified Escherichia coli [E. coli] as the cause of diseases classified elsewhere; Z79.01 Long term (current) use of anticoagulants; Z79.84 Long term (current) use of oral hypoglycemic drugs; Z79.4 Long term (current) use of insulin

== ENCOUNTER 2024-06-29 13:44 | Inpatient (IN) | payer OTHER ==
[~2024-06-29] VITALS: Ht 175.3 cm; Wt 121.6 kg
[~2024-06-29 13:44] MED LIST changes: +BUMETANIDE1 MG PO; +DOXAZOSIN MESYLA2 MG PO; +FINASTERIDE5 MG PO; +INTEGRA PLUS C1 EACH PO; +LEVOTHYROXINE75 MCG PO; +PROTEINEX-18 LI30 ML PO
[2024-06-29 14:46] LABS: BASO % 1.5 % (0.1-1.2); EOS # 0.07 (0.04-0.54); EOS % 0.9 % (0.7-7.0); HEMATOCRIT 31.3 % (40.1-51.0); LYMPH % 18.8 % (19.3-53.1); MONO # 0.88 (0.24-0.82); MONO % 11.8 % (4.7-12.5); NEUT # 4.95 (1.56-6.13); NEUT % 66.3 % (34.0-71.1); PLATELET COUNT 287 K/uL (163-369); RED BLOOD COUNT 3.77 M/uL (4.63-6.08); RED CELL DISTRIBUTION WIDTH 15.6 % (11.6-14.4)
[2024-06-29 15:00] LABS: HEMOGLOBIN 9.8 g/dL (13.7-17.5)
[2024-06-29 15:51] LABS: ALBUMIN 3.5 gm/dL (3.4-5.0); BILIRUBIN TOTAL 0.74 mg/dL (0.3-1.2); CALCIUM 8.5 mg/dL (8.5-10.1); CREATININE SERUM 2.13 mg/dL (0.70-1.30); GFR 31.24; GLOBULINA 4.9 G/DL (2.4-3.5); MAGNESIUM 1.8 mg/dL (1.8-2.4); PHOSPHOROUS 3.5 mg/dL (2.5-4.9); POTASSIUM 4.93 mEq/L (3.5-5.1); T4 FREE 1.41 NG/ML (0.76-1.46); TOTAL PROTEIN 8.4 gm/dL (6.4-8.2)
[2024-06-29 15:58] LABS: TSH 5.75 uIU/mL (0.358-3.74)
[2024-06-29] MEDS ORDERED: INSULIN LISPRO 1,000 UNIT/10 ML UNITS SUBCUTANEO PRN ×2 (16:45→19:15)
[2024-06-29 16:47] LABS: BASO % 1.2 % (0.1-1.2); EOS # 0.07 (0.04-0.54); EOS % 1.1 % (0.7-7.0); HEMATOCRIT 29.5 % (40.1-51.0); HEMOGLOBIN 9.4 g/dL (13.7-17.5); LYMPH # 1.04 (1.18-3.74); LYMPH % 15.7 % (19.3-53.1); MEAN CORPUSCULAR HEMOGLOBIN 26.3 pg (25.6-32.2); MONO # 0.77 (0.24-0.82); MONO % 11.6 % (4.7-12.5); NEUT # 4.63 (1.56-6.13); NEUT % 70.1 % (34.0-71.1); PLATELET COUNT 279 K/uL (163-369); RED BLOOD COUNT 3.57 M/uL (4.63-6.08); RED CELL DISTRIBUTION WIDTH 15.4 % (11.6-14.4)
[2024-06-29] MEDS ORDERED: APIXABAN 5 MG TABLET PO SCH (17:00)
[2024-06-29] MEDS ORDERED: hydrALAZINE HCL 50 MG TABLET PO SCH (17:00)
[2024-06-29] MEDS ORDERED: BUMETANIDE 2.5 MG/10 ML VIAL IV SCH (17:00)
[2024-06-29] MEDS ORDERED: PANTOPRAZOLE SODIUM 40 MG/VIAL VIAL IV SCH (17:00)
[2024-06-29 17:54] LABS: ALBUMIN 3.2 gm/dL (3.4-5.0); BILIRUBIN TOTAL 0.56 mg/dL (0.3-1.2); CALCIUM 8.3 mg/dL (8.5-10.1); CREATININE SERUM 2.15 mg/dL (0.70-1.30); GFR 30.91; GLOBULINA 4.6 G/DL (2.4-3.5); MAGNESIUM 1.7 mg/dL (1.8-2.4); PHOSPHOROUS 3.4 mg/dL (2.5-4.9); POTASSIUM 4.81 mEq/L (3.5-5.1); TOTAL PROTEIN 7.8 gm/dL (6.4-8.2)
[2024-06-29 18:27] VITALS: BP 140/52; O2SAT 98
[2024-06-29 18:32] LABS: PH,URINE 5.5 (5.0-8.0); URINE APPEARANCE Clear; URINE BILIRRUBIN Negative (NEGATIVE); URINE BLOOD Negative; URINE COLOR Yellow; URINE GLUCOSE Negative (NEGATIVE); URINE KETONE Negative (NEGATIVE); URINE LEUKOCYTE Negative; URINE NITRATE Negative; URINE PROTEIN Negative (NEGATIVE); URINE UROBILINOGEN 0.2 E.U./dl
[2024-06-29 18:35] LABS: URINE BACTERIA 8.5 uL (0.0-1933); URINE CAST 1.76 uL (0.0-1.40); URINE EPITHELIAL CELLS 3.3 uL (0.0-38.8); URINE RBC 2.7 uL (0.0-20.8); URINE WBC 5.5 uL (0.0-23.2)
[2024-06-29 18:50] LABS: T4 FREE 1.32 NG/ML (0.76-1.46); TSH 5.14 uIU/mL (0.358-3.74)
[2024-06-29] MEDS ORDERED: DEXTROSE 50 % IN WATER 0.5 G/ML VIAL IV PRN (19:15)
[2024-06-30] VITALS: BP 160/57; O2SAT 96
[2024-06-30] MEDS ORDERED: LEVOTHYROXINE SODIUM 50 MCG TABLET PO SCH (06:00)
[2024-06-30 08:00] VITALS: BP 160/67; O2SAT 95
[2024-06-30] MEDS ORDERED: IRON FUM,PS/FOLIC/BCOMP,C NO.9 1 CAP CAPSULE PO SCH (09:00)
[2024-06-30] MEDS ORDERED: ISOSORBIDE MONONITRATE 30 MG TABLET PO SCH (09:00)
[2024-06-30] MEDS ORDERED: IRBESARTAN 300 MG TABLET PO SCH (09:00)
[2024-06-30] MEDS ORDERED: NIFEDIPINE 90 MG TAB.SA.OSM PO SCH (09:00)
[2024-06-30] MEDS ORDERED: DOXAZOSIN MESYLATE 2 MG TABLET PO SCH ×2 (09:00)
[2024-06-30] MEDS ORDERED: ATORVASTATIN CALCIUM 40 MG TABLET PO SCH (09:00)
[2024-06-30] MEDS ORDERED: FINASTERIDE 5 MG TABLET PO SCH (09:00)
[2024-06-30] MEDS ORDERED: METOPROLOL SUCCINATE 50 MG TAB.SR.24H PO SCH ×2 (09:00)
[2024-06-30] MEDS ORDERED: CHOLECALCIFEROL (VITAMIN D3) 5,000 UNITS TABLET PO SCH (09:00)
[2024-06-30] MEDS ORDERED: MAGNESIUM SULFATE IN WATER 50 ML IV NR (13:00)
[2024-06-30 14:59] LABS: URINE APPEARANCE Clear; URINE BILIRRUBIN Negative (NEGATIVE); URINE BLOOD Negative; URINE COLOR Yellow; URINE KETONE Negative (NEGATIVE); URINE LEUKOCYTE Negative; URINE NITRATE Negative
[2024-06-30 15:00] LABS: URINE BACTERIA 69.6 uL (0.0-1933); URINE EPITHELIAL CELLS 3.4 uL (0.0-38.8); URINE RBC 6.7 uL (0.0-20.8); URINE WBC 3.9 uL (0.0-23.2)
[2024-06-30 15:09] LABS: URINE CAST 1.17 uL (0.0-1.40); URINE GLUCOSE 500 MG/DL (NEGATIVE); URINE PROTEIN 100 (NEGATIVE)
[2024-06-30 16:35] VITALS: BP 158/68; O2SAT 95
[2024-06-30] MEDS ORDERED: DOXAZOSIN MESYLATE 4 MG TABLET PO SCH (17:00)
[2024-06-30] MEDS ORDERED: METOLAZONE 2.5 MG TABLET PO SCH (20:10)
[2024-07-01 01:03] VITALS: BP 142/51; O2SAT 98
[2024-07-01 07:59] LABS: CALCIUM 8.6 mg/dL (8.5-10.1); CREATININE SERUM 1.44 mg/dL (0.70-1.30); GFR 49.08; PHOSPHOROUS 3.6 mg/dL (2.5-4.9); POTASSIUM 4.45 mEq/L (3.5-5.1)
[2024-07-01 08:29] VITALS: BP 154/72; O2SAT 95
[2024-07-01 08:30] LABS: BASO % 1.3 % (0.1-1.2); EOS # 0.18 (0.04-0.54); EOS % 2.6 % (0.7-7.0); HEMATOCRIT 30.5 % (40.1-51.0); LYMPH # 1.04 (1.18-3.74); LYMPH % 15.3 % (19.3-53.1); MEAN CORPUSCULAR HEMOGLOBIN 26.2 pg (25.6-32.2); MONO # 0.83 (0.24-0.82); NEUT # 4.64 (1.56-6.13); NEUT % 68.3 % (34.0-71.1); PLATELET COUNT 209 K/uL (163-369); RED BLOOD COUNT 3.59 M/uL (4.63-6.08); RED CELL DISTRIBUTION WIDTH 15.5 % (11.6-14.4)
[2024-07-01 08:35] LABS: MONO % 12.2 % (4.7-12.5)
[2024-07-01 08:36] LABS: HEMOGLOBIN 9.4 g/dL (13.7-17.5)
[2024-07-01 16:00] VITALS: BP 134/64; O2SAT 97
[2024-07-02 00:51] VITALS: BP 138/61; O2SAT 97
[2024-07-02] MEDS ORDERED: INSULIN NPH HUM/REG INSULIN HM 1,000 UNIT/10 ML UNITS SUBCUTANEO SCH (08:00)
[2024-07-02 08:08] VITALS: BP 146/55; O2SAT 95
[2024-07-02 16:20] VITALS: BP 144/61; O2SAT 95
[2024-07-03 01:14] VITALS: BP 146/55; O2SAT 97
[2024-07-03] MEDS ORDERED: LEVOTHYROXINE SODIUM 88 MCG TABLET PO SCH (06:00)
[2024-07-03 07:48] LABS: BASO % 0.9 % (0.1-1.2); EOS # 0.14 (0.04-0.54); EOS % 2.6 % (0.7-7.0); HEMATOCRIT 27.9 % (40.1-51.0); LYMPH # 1.17 (1.18-3.74); LYMPH % 21.9 % (19.3-53.1); MEAN CORPUSCULAR HEMOGLOBIN 26.6 pg (25.6-32.2); NEUT # 3.17 (1.56-6.13); NEUT % 59.2 % (34.0-71.1); PLATELET COUNT 252 K/uL (163-369); RED BLOOD COUNT 3.35 M/uL (4.63-6.08); RED CELL DISTRIBUTION WIDTH 15.6 % (11.6-14.4)
[2024-07-03 08:06] LABS: HEMOGLOBIN 8.9 g/dL (13.7-17.5)
[2024-07-03 08:07] LABS: CALCIUM 8.6 mg/dL (8.5-10.1); CREATININE SERUM 1.44 mg/dL (0.70-1.30); GFR 49.08; POTASSIUM 3.76 mEq/L (3.5-5.1)
[2024-07-03 09:04] VITALS: BP 155/66; O2SAT 97
[2024-07-03 16:00] VITALS: BP 134/55; O2SAT 100
[2024-07-03] MEDS ORDERED: BUMETANIDE 2.5 MG/10 ML VIAL IV SCH (21:00)
[2024-07-03 21:43] VITALS: O2SAT 100
[2024-07-04] VITALS: BP 132/82; O2SAT 91; O2SAT 95
[2024-07-04 06:07] VITALS: O2SAT 99
[2024-07-04] MEDS ORDERED: INSULIN NPH HUM/REG INSULIN HM 1,000 UNIT/10 ML UNITS SUBCUTANEO SCH ×2 (08:00→17:00)
[2024-07-04 08:52] VITALS: BP 170/55; O2SAT 90
[2024-07-04 09:59] VITALS: O2SAT 91
[2024-07-04 13:07] VITALS: O2SAT 98
[2024-07-04 16:00] VITALS: BP 153/50; O2SAT 96
[2024-07-04] MEDS ORDERED: DOXAZOSIN MESYLATE 8 MG TABLET PO SCH (17:00)
[2024-07-05 00:50] VITALS: BP 165/65
[2024-07-05 07:10] LABS: ALBUMIN 3.1 gm/dL (3.4-5.0); BILIRUBIN TOTAL 0.53 mg/dL (0.3-1.2); CALCIUM 8.6 mg/dL (8.5-10.1); CREATININE SERUM 1.43 mg/dL (0.70-1.30); GFR 49.48; GLOBULINA 4.1 G/DL (2.4-3.5); POTASSIUM 4.3 mEq/L (3.5-5.1); TOTAL PROTEIN 7.2 gm/dL (6.4-8.2)
[2024-07-05 08:35] VITALS: BP 160/60; O2SAT 98
[2024-07-05] MEDS ORDERED: PANTOPRAZOLE SODIUM 40 MG TABLET.DR PO SCH (09:00)
[2024-07-05 16:33] VITALS: BP 128/47
[2024-07-05 17:11] LABS: BASO % 1.4 % (0.1-1.2); EOS % 1.7 % (0.7-7.0); HEMATOCRIT 30.4 % (40.1-51.0); HEMOGLOBIN 9.6 g/dL (13.7-17.5); LYMPH # 0.89 (1.18-3.74); LYMPH % 15.3 % (19.3-53.1); MEAN CORPUSCULAR HEMOGLOBIN 26.7 pg (25.6-32.2); MONO # 0.78 (0.24-0.82); MONO % 13.4 % (4.7-12.5); NEUT # 3.96 (1.56-6.13); NEUT % 67.9 % (34.0-71.1); PLATELET COUNT 131 K/uL (163-369); RED BLOOD COUNT 3.59 M/uL (4.63-6.08); RED CELL DISTRIBUTION WIDTH 15.6 % (11.6-14.4)
[2024-07-06 01:32] VITALS: BP 140/60; O2SAT 97
[2024-07-06 07:30] VITALS: BP 172/67; O2SAT 95
[2024-07-06] MEDS ORDERED: INSULIN NPH HUM/REG INSULIN HM 1,000 UNIT/10 ML UNITS SUBCUTANEO SCH (08:00)
[2024-07-06] MEDS ORDERED: BUMETANIDE 2.5 MG/10 ML VIAL IV SCH (09:00)
[2024-07-06] MEDS ORDERED: DOXYCYCLINE HYCLATE 100MG EACH PO SCH (09:22)
[2024-07-06] MEDS ORDERED: METOLAZONE 2.5 MG TABLET PO ONE (10:00)
[2024-07-06 17:39] VITALS: BP 179/80; O2SAT 98
[2024-07-07 00:42] VITALS: BP 164/60; O2SAT 96
[2024-07-07 07:00] VITALS: BP 154/67; O2SAT 96
[2024-07-07] MEDS ORDERED: INSULIN NPH HUM/REG INSULIN HM 1,000 UNIT/10 ML UNITS SUBCUTANEO SCH (08:00)
[2024-07-07] MEDS ORDERED: INTEGRA PLUS C1 EACH PO (16:52)
[2024-07-07] MEDS ORDERED: ELIQUIS5 MG PO (16:52)
[2024-07-07] MEDS ORDERED: DOXYCYCLINE HY100 M2 PO (16:52)
[2024-07-07] MEDS ORDERED: LIPITOR40 M1 PO (16:52)
[2024-07-07] MEDS ORDERED: DOXAZOSIN MESYLA8 MG PO (16:52)
[2024-07-07] MEDS ORDERED: PROCARDIA XL90 MG PO (16:53)
[2024-07-07] MEDS ORDERED: HYDRALAZINE HCL50 MG PO (16:53)
[2024-07-07] MEDS ORDERED: TOPROL XL50 M1 PO (16:53)
[2024-07-07] MEDS ORDERED: AVAPRO300 MG PO (16:53)
[2024-07-07] MEDS ORDERED: ISOSORBIDE MONO30 MG PO (16:53)
[2024-07-07] MEDS ORDERED: FINASTERIDE5 MG PO (16:54)
[2024-07-07] MEDS ORDERED: VITAMIN D3125 MC2 PO (16:54)
[2024-07-07] MEDS ORDERED: BUMETANIDE1 MG PO (16:54)
[2024-07-07] MEDS ORDERED: LEVOTHYROXINE88 MCG PO (16:54)
[2024-07-07] MEDS ORDERED: BUMETANIDE 1 MG TABLET PO SCH (17:00)
[2024-07-07 17:08] VITALS: BP 123/50; O2SAT 96
== END 2024-07-07 19:25 | disposition home or self-care (01) | DRG 291 ==
LOC: SEC-K 13:44 → SURH 13:44 → MEDI 07-03 17:09
PROVIDERS: Internal Medicine; Internal Medicine Nephrology; ADMIT Internal Medicine; ATTEND Internal Medicine
PROC: B24BZZZ Ultrasonography of Heart with Aorta (ICD-10-PCS; 2024-06-29)
PROC: 0W993ZZ Drainage of Right Pleural Cavity, Percutaneous Approach (ICD-10-PCS; principal; 2024-06-30)
PROC: 4A12X4Z Monitoring of Cardiac Electrical Activity, External Approach (ICD-10-PCS; 2024-06-30)
PROC: 0W9B3ZZ Drainage of Left Pleural Cavity, Percutaneous Approach (ICD-10-PCS; 2024-07-03)
PROC: BB4BZZZ Ultrasonography of Pleura (ICD-10-PCS; 2024-07-03)
PROC: 0W993ZZ Drainage of Right Pleural Cavity, Percutaneous Approach (ICD-10-PCS; 2024-07-06)
DX: I13.0 Hypertensive heart and chronic kidney disease with heart failure and stage 1 through stage 4 chronic kidney disease, or unspecified chronic kidney disease (principal); I50.33 Acute on chronic diastolic (congestive) heart failure; N17.9 Acute kidney failure, unspecified; I50.30 Unspecified diastolic (congestive) heart failure; L97.829 Non-pressure chronic ulcer of other part of left lower leg with unspecified severity; I27.20 Pulmonary hypertension, unspecified; I25.10 Atherosclerotic heart disease of native coronary artery without angina pectoris; E78.5 Hyperlipidemia, unspecified; Z79.4 Long term (current) use of insulin; E03.9 Hypothyroidism, unspecified; E11.65 Type 2 diabetes mellitus with hyperglycemia; N18.9 Chronic kidney disease, unspecified; E11.22 Type 2 diabetes mellitus with diabetic chronic kidney disease; D63.1 Anemia in chronic kidney disease; L08.9 Local infection of the skin and subcutaneous tissue, unspecified; B95.62 Methicillin resistant Staphylococcus aureus infection as the cause of diseases classified elsewhere

== ENCOUNTER 2024-08-22 09:50 | Inpatient (IN) | payer OTHER ==
[~2024-08-22] VITALS: Ht 175.3 cm; Wt 117.9 kg
[~2024-08-22 09:50] MED LIST changes: +DOXAZOSIN MESYLA8 MG PO; +DOXYCYCLINE HY100 M2 PO; +ISOSORBIDE MONO30 MG PO; +LEVOTHYROXINE88 MCG PO; +VITAMIN D3125 MC2 PO
[2024-08-22 11:47] LABS: ABG PH 7.428 (7.35-7.45); ABG PO2 77.7 mmHg (80-100); BICARBONATE 26.8 mmol/l (23-25)
[2024-08-22 11:51] LABS: BASO % 0.9 % (0.1-1.2); EOS # 0.14 (0.04-0.54); EOS % 2.5 % (0.7-7.0); LYMPH # 1.18 (1.18-3.74); LYMPH % 20.7 % (19.3-53.1); MEAN PLATELET VOLUME 11.20 fl (9.4-12.4); MONO # 0.67 (0.24-0.82); MONO % 11.8 % (4.7-12.5); NEUT # 3.63 (1.56-6.13); NEUT % 63.7 % (34.0-71.1); RED CELL DISTRIBUTION WIDTH 15.0 % (11.6-14.4)
[2024-08-22 11:54] LABS: o2 21 %
[2024-08-22 12:24] LABS: INR 1.1
[2024-08-22 12:27] LABS: ALT/SGPT 15.0 U/L (12-78); AST/SGOT 11.0 U/L (15-37); BILIRUBIN TOTAL 0.47 mg/dL (0.3-1.2); BUN CREA RATIO 16.0 (7.0-25.0); CREATININE SERUM 1.5 mg/dL (0.70-1.30); GFR 46.82; GLOBULINA 4.5 G/DL (2.4-3.5); GLUCOSE FASTING 188.0 mg/dL (65-100); OSMOLALITY SERUM 298.0 MOSM/KG (275-295)
[2024-08-22 13:10] LABS: COVID-19 AG NEGATIVE (NEGATIVE)
[2024-08-22] MEDS ORDERED: INSULIN LISPRO 1,000 UNIT/10 ML UNITS SUBCUTANEO PRN (16:45)
[2024-08-22] MEDS ORDERED: DEXTROSE 50 % IN WATER 0.5 G/ML DISP.SYRIN IV PRN (16:45)
[2024-08-22] MEDS ORDERED: BUMETANIDE 2.5 MG/10 ML VIAL IV SCH (17:00)
[2024-08-22] MEDS ORDERED: ATORVASTATIN CALCIUM 40 MG TABLET PO SCH (17:00)
[2024-08-22] MEDS ORDERED: APIXABAN 5 MG TABLET PO SCH (17:00)
[2024-08-22 17:36] LABS: URINE APPEARANCE Clear; URINE BILIRRUBIN Negative (NEGATIVE); URINE BLOOD Negative; URINE COLOR Yellow; URINE GLUCOSE Negative (NEGATIVE); URINE KETONE Trace (NEGATIVE); URINE LEUKOCYTE Negative; URINE NITRATE Negative; URINE PROTEIN 30 (NEGATIVE); URINE UROBILINOGEN 0.2 E.U./dl
[2024-08-22 17:40] LABS: URINE BACTERIA 9.5 uL (0.0-1933); URINE CAST 4.10 uL (0.0-1.40); URINE EPITHELIAL CELLS 4.3 uL (0.0-38.8); URINE RBC 3.5 uL (0.0-20.8); URINE WBC 3.0 uL (0.0-23.2)
[2024-08-22 17:51] VITALS: BP 158/66; O2SAT 95
[2024-08-22] MEDS ORDERED: DOXAZOSIN MESYLATE 2 MG TABLET PO SCH (17:58)
[2024-08-22] MEDS ORDERED: METOPROLOL SUCCINATE 50 MG TAB.SR.24H PO SCH (21:00)
[2024-08-22 23:34] VITALS: BP 172/62; O2SAT 98
[2024-08-23] MEDS ORDERED: LEVOTHYROXINE SODIUM 88 MCG TABLET PO SCH (06:00)
[2024-08-23 08:43] VITALS: BP 154/57; O2SAT 90
[2024-08-23] MEDS ORDERED: METOLAZONE 2.5 MG TABLET PO SCH (09:00)
[2024-08-23] MEDS ORDERED: FINASTERIDE 5 MG TABLET PO SCH (09:00)
[2024-08-23] MEDS ORDERED: IRBESARTAN 300 MG TABLET PO SCH (09:00)
[2024-08-23] MEDS ORDERED: 0.9 % SODIUM CHLORIDE 1,000 ML IV SCH (09:00)
[2024-08-23] MEDS ORDERED: NIFEDIPINE 90 MG TAB.SA.OSM PO SCH (09:00)
[2024-08-23] MEDS ORDERED: IRON FUM,PS/FOLIC/BCOMP,C NO.9 1 CAP CAPSULE PO SCH (09:00)
[2024-08-23] MEDS ORDERED: PANTOPRAZOLE SODIUM 40 MG TABLET.DR PO SCH (09:00)
[2024-08-23] MEDS ORDERED: ISOSORBIDE MONONITRATE 30 MG TABLET PO SCH (09:00)
[2024-08-23] MEDS ORDERED: MIDAZOLAM HCL 2 MG/2 ML VIAL IV PUSH ONE (15:30)
[2024-08-23] MEDS ORDERED: fentaNYL CITRATE 50 MCG/ML AMPUL IV PUSH ONE (15:30)
[2024-08-23 16:54] VITALS: BP 167/70; O2SAT 98
[2024-08-23] MEDS ORDERED: BUMETANIDE 2.5 MG/10 ML VIAL IV SCH (17:00)
[2024-08-24 01:22] VITALS: BP 155/72; O2SAT 99
[2024-08-24 04:52] LABS: BASO % 0.4 % (0.1-1.2); EOS # 0.05 (0.04-0.54); EOS % 0.7 % (0.7-7.0); LYMPH # 0.83 (1.18-3.74); LYMPH % 11.9 % (19.3-53.1); MEAN PLATELET VOLUME 11.60 fl (9.4-12.4); MONO # 0.58 (0.24-0.82); MONO % 8.3 % (4.7-12.5); NEUT # 5.45 (1.56-6.13); NEUT % 78.6 % (34.0-71.1); RED CELL DISTRIBUTION WIDTH 15.2 % (11.6-14.4)
[2024-08-24 05:20] LABS: ALT/SGPT 14.0 U/L (12-78); AST/SGOT 16.0 U/L (15-37); BILIRUBIN TOTAL 0.99 mg/dL (0.3-1.2); BUN CREA RATIO 19.0 (7.0-25.0); CREATININE SERUM 1.16 mg/dL (0.70-1.30); GFR 62.99; GLOBULINA 4.1 G/DL (2.4-3.5); GLUCOSE FASTING 127.0 mg/dL (65-100); OSMOLALITY SERUM 294.0 MOSM/KG (275-295)
[2024-08-24 08:00] VITALS: BP 193/967; O2SAT 95
[2024-08-24] MEDS ORDERED: DOXAZOSIN MESYLATE 4 MG TABLET PO NR (10:40)
[2024-08-24] MEDS ORDERED: BUMETANIDE PO SCH (17:00)
[2024-08-24] MEDS ORDERED: DOXAZOSIN MESYLATE 4 MG TABLET PO SCH (17:00)
[2024-08-24 17:34] VITALS: BP 156/77
[2024-08-25 01:57] VITALS: BP 156/59; O2SAT 97
[2024-08-25 08:41] VITALS: BP 153/72; O2SAT 94
[2024-08-25] MEDS ORDERED: LIPITOR40 M1 PO (14:41)
[2024-08-25] MEDS ORDERED: INTEGRA PLUS C1 EACH PO (14:41)
[2024-08-25] MEDS ORDERED: ELIQUIS5 MG PO (14:41)
[2024-08-25] MEDS ORDERED: AVAPRO300 MG PO (14:42)
[2024-08-25] MEDS ORDERED: PROCARDIA XL90 MG PO (14:42)
[2024-08-25] MEDS ORDERED: TOPROL XL50 M1 PO (14:42)
[2024-08-25] MEDS ORDERED: DOXAZOSIN MESYLA4 MG PO (14:42)
[2024-08-25] MEDS ORDERED: ISOSORBIDE MONO30 MG PO (14:42)
[2024-08-25] MEDS ORDERED: BUMETANIDE2 MG PO (14:43)
[2024-08-25] MEDS ORDERED: HYDRALAZINE HCL50 MG PO (14:43)
[2024-08-25] MEDS ORDERED: LEVOTHYROXINE88 MCG PO (14:44)
[2024-08-25] MEDS ORDERED: METOLAZONE2.5 MG PO (14:44)
[2024-08-25] MEDS ORDERED: FINASTERIDE5 MG PO (14:44)
[2024-08-25] MEDS ORDERED: LANTUS SOL100 UNIT/1 SUBCUTANEO (14:45)
[2024-08-25] MEDS ORDERED: HUMULIN 70100 UNIT/1 SUBCUTANEO (14:45)
== END 2024-08-25 15:07 | disposition home or self-care (01) | DRG 186 ==
LOC: ER 09:50 → MEDI 16:40 → SEC-K 16:40 → MEDI 19:18 → SEC-K 19:27 → MEDI 08-23 00:11
PROVIDERS: Emergency Medicine; Internal Medicine; ADMIT Internal Medicine; ATTEND Internal Medicine
PROC: BB24ZZZ Computerized Tomography (CT Scan) of Bilateral Lungs (ICD-10-PCS; principal; 2024-08-22)
PROC: B246ZZZ Ultrasonography of Right and Left Heart (ICD-10-PCS; 2024-08-22)
PROC: 4A12X4Z Monitoring of Cardiac Electrical Activity, External Approach (ICD-10-PCS; 2024-08-23)
PROC: 0B9N30Z Drainage of Right Pleura with Drainage Device, Percutaneous Approach (ICD-10-PCS; 2024-08-23)
DX: J90 Pleural effusion, not elsewhere classified (principal); I50.33 Acute on chronic diastolic (congestive) heart failure; I13.0 Hypertensive heart and chronic kidney disease with heart failure and stage 1 through stage 4 chronic kidney disease, or unspecified chronic kidney disease; I48.20 Chronic atrial fibrillation, unspecified; N17.8 Other acute kidney failure; N18.9 Chronic kidney disease, unspecified; E11.22 Type 2 diabetes mellitus with diabetic chronic kidney disease; Z79.4 Long term (current) use of insulin; E11.65 Type 2 diabetes mellitus with hyperglycemia

== ENCOUNTER 2024-08-31 15:54 | Inpatient (IN) | payer OTHER ==
[~2024-08-31] VITALS: Ht 152.4 cm; Wt 117.9 kg
[~2024-08-31 15:54] MED LIST changes: +BUMETANIDE2 MG PO; +METOLAZONE2.5 MG PO
[2024-08-31 16:34] LABS: ABG PH 7.465 (7.35-7.45); ABG PO2 61.1 mmHg (80-100); BICARBONATE 27.7 mmol/l (23-25)
[2024-08-31 16:40] LABS: BASO % 0.2 % (0.1-1.2); EOS # 0.00 (0.04-0.54); EOS % 0.0 % (0.7-7.0); LYMPH # 0.71 (1.18-3.74); LYMPH % 3.7 % (19.3-53.1); MEAN PLATELET VOLUME 12.00 fl (9.4-12.4); MONO # 1.76 (0.24-0.82); MONO % 9.2 % (4.7-12.5); NEUT # 16.38 (1.56-6.13); NEUT % 85.5 % (34.0-71.1); RED CELL DISTRIBUTION WIDTH 15.2 % (11.6-14.4)
[2024-08-31 16:50] LABS: COVID-19 AG NEGATIVE (NEGATIVE)
[2024-08-31 17:03] LABS: ALT/SGPT 20.0 U/L (12-78); AST/SGOT 19.0 U/L (15-37); BILIRUBIN TOTAL 0.7 mg/dL (0.3-1.2); BILIRUBIN,CONJUGATED 0.32 mg/dL (0.0-0.2); BUN CREA RATIO 24.0 (7.0-25.0); CREATININE SERUM 1.53 mg/dL (0.70-1.30); GFR 45.76; GLOBULINA 3.6 G/DL (2.4-3.5); LDH 167.0 U/L (87-241); OSMOLALITY SERUM 293.0 MOSM/KG (275-295); PHOSPHOKINASE CREATININE 87.0 U/L (39-308)
[2024-08-31 17:16] LABS: URINE APPEARANCE Clear; URINE BILIRRUBIN Negative (NEGATIVE); URINE BLOOD Negative; URINE COLOR Yellow; URINE GLUCOSE Negative (NEGATIVE); URINE KETONE Negative (NEGATIVE); URINE LEUKOCYTE Negative; URINE NITRATE Negative; URINE PROTEIN 30 (NEGATIVE); URINE UROBILINOGEN 0.2 E.U./dl
[2024-08-31 17:17] LABS: URINE BACTERIA 7.1 uL (0.0-1933); URINE CAST 1.46 uL (0.0-1.40); URINE EPITHELIAL CELLS 4.3 uL (0.0-38.8); URINE WBC 4.4 uL (0.0-23.2)
[2024-08-31 17:23] LABS: GLUCOSE FASTING 256.0 mg/dL (65-100)
[2024-08-31] MEDS ORDERED: CEFTRIAXONE SODIUM 2,000 MG VIAL IV ONE (17:30)
[2024-08-31 17:35] LABS: TYPE CELLS RENAL TUBULAR; URINE RBC 0.5 uL (0.0-20.8)
[2024-08-31] MEDS ORDERED: CEFTRIAXONE SODIUM 2,000 MG VIAL ONE (17:37)
[2024-08-31 19:48] LABS: o2 21 %
[2024-08-31] MEDS ORDERED: IPRATROPIUM BROMIDE 0.5 MG/2.5 ML AMPUL.NEB IH SCH (21:32)
[2024-08-31] MEDS ORDERED: MEROPENEM 500 MG/VIAL VIAL IV SCH (21:35)
[2024-08-31] MEDS ORDERED: FAMOTIDINE/PF 20 MG in 0.9 % SODIUM CHLORIDE 8 ML IV PUSH SCH (21:35)
[2024-08-31] MEDS ORDERED: BUMETANIDE 2.5 MG/10 ML VIAL IV SCH (21:36)
[2024-08-31] MEDS ORDERED: ENOXAPARIN SODIUM 100 MG/ML SYRINGE SUBCUTANEO SCH (21:40)
[2024-08-31] MEDS ORDERED: ACETAMINOPHEN 500 MG GEL..CAP PO PRN (21:45)
[2024-08-31] MEDS ORDERED: DEXTROSE 50 % IN WATER 0.5 G/ML DISP.SYRIN IV PRN (21:45)
[2024-08-31] MEDS ORDERED: INSULIN LISPRO 1,000 UNIT/10 ML UNITS SUBCUTANEO PRN (21:45)
[2024-08-31] MEDS ORDERED: BUMETANIDE 2.5 MG/10 ML VIAL ONE (22:06)
[2024-08-31] MEDS ORDERED: ENOXAPARIN SODIUM 80 MG/0.8 ML SYRINGE SUBCUTANEO ONE (22:07)
[2024-08-31] MEDS ORDERED: FAMOTIDINE/PF 20 MG/2 ML VIAL ONE (22:08)
[2024-08-31] MEDS ORDERED: IPRATROPIUM BROMIDE 0.5 MG/2.5 ML AMPUL.NEB IH ONE (22:14)
[2024-08-31 23:30] VITALS: BP 140/47
[2024-08-31 23:48] LABS: INR 1.31
[2024-08-31 23:59] VITALS: BP 120/43; O2SAT 96
[2024-09-01] VITALS (16 sets, daily range): BP systolic 106–171; BP diastolic 40–59; O2SAT 93–99
[2024-09-01] MEDS ORDERED: IPRATROPIUM BROMIDE 0.5 MG/2.5 ML AMPUL.NEB IH ONE (00:05)
[2024-09-01] MEDS ORDERED: ACETAMINOPHEN 500 MG GEL..CAP PO ONE (01:51)
[2024-09-01] MEDS ORDERED: LEVOTHYROXINE SODIUM 88 MCG TABLET PO SCH (06:00)
[2024-09-01] MEDS ORDERED: INSULIN LISPRO 1,000 UNIT/10 ML UNITS SUBCUTANEO ONE (16:21)
[2024-09-01] MEDS ORDERED: LINEZOLID IN DEXTROSE 5% 300 ML IV SCH (17:00)
[2024-09-01] MEDS ORDERED: APIXABAN 5 MG TABLET PO SCH (17:00)
[2024-09-01] MEDS ORDERED: NIFEDIPINE 30 MG TAB.SA.OSM PO SCH (17:01)
[2024-09-01] MEDS ORDERED: METOLAZONE 2.5 MG TABLET PO SCH (17:06)
[2024-09-01] MEDS ORDERED: ENALAPRILAT DIHYDRATE 1.25 MG/ML VIAL IV PRN (17:15)
[2024-09-01] MEDS ORDERED: MAGNESIUM SULFATE IN WATER 50 ML IV NR (17:30)
[2024-09-02] VITALS (20 sets, daily range): BP systolic 127–172; BP diastolic 46–76; O2SAT 91–99
[2024-09-02] MEDS ORDERED: INSULIN LISPRO 1,000 UNIT/10 ML UNITS SUBCUTANEO ONE ×2 (00:58→17:29)
[2024-09-02 06:17] LABS: BASO % 0.2 % (0.1-1.2); EOS # 0.00 (0.04-0.54); EOS % 0.0 % (0.7-7.0); LYMPH # 0.64 (1.18-3.74); LYMPH % 4.0 % (19.3-53.1); MEAN PLATELET VOLUME 11.50 fl (9.4-12.4); MONO # 1.53 (0.24-0.82); MONO % 9.5 % (4.7-12.5); NEUT # 13.90 (1.56-6.13); NEUT % 85.7 % (34.0-71.1); RED CELL DISTRIBUTION WIDTH 15.2 % (11.6-14.4)
[2024-09-02 06:51] LABS: ALT/SGPT 50.0 U/L (12-78); AST/SGOT 57.0 U/L (15-37); BILIRUBIN TOTAL 0.87 mg/dL (0.3-1.2); BUN CREA RATIO 25.0 (7.0-25.0); CREATININE SERUM 1.51 mg/dL (0.70-1.30); GFR 46.46; GLOBULINA 3.9 G/DL (2.4-3.5); GLUCOSE FASTING 199.0 mg/dL (65-100); OSMOLALITY SERUM 292.0 MOSM/KG (275-295)
[2024-09-03] VITALS (15 sets, daily range): BP systolic 130–180; BP diastolic 51–67; O2SAT 94–99
[2024-09-03] MEDS ORDERED: INSULIN LISPRO 1,000 UNIT/10 ML UNITS SUBCUTANEO ONE (00:58)
[2024-09-03 06:04] LABS: BASO % 0.3 % (0.1-1.2); EOS % 0.5 % (0.7-7.0); LYMPH % 6.2 % (19.3-53.1); MEAN PLATELET VOLUME 11.70 fl (9.4-12.4); MONO % 9.3 % (4.7-12.5); NEUT % 83.1 % (34.0-71.1); RED CELL DISTRIBUTION WIDTH 15.3 % (11.6-14.4)
[2024-09-03 06:05] LABS: EOS # 0.07 (0.04-0.54); LYMPH # 0.89 (1.18-3.74); MONO # 1.34 (0.24-0.82); NEUT # 11.95 (1.56-6.13)
[2024-09-03 06:26] LABS: BUN CREA RATIO 24.0 (7.0-25.0); CREATININE SERUM 1.4 mg/dL (0.70-1.30); GFR 50.7; GLUCOSE FASTING 171.0 mg/dL (65-100); OSMOLALITY SERUM 289.0 MOSM/KG (275-295)
[2024-09-03] MEDS ORDERED: MUPIROCIN 15 GM OINT..GM TUBE NASAL SCH (09:00)
[2024-09-03] MEDS ORDERED: CHLORHEXIDINE GLUCONATE 120 ML BOTTLE TOP SCH (09:00)
[2024-09-03] MEDS ORDERED: CEFTAROLINE FOSAMIL ACETATE 600 MG VIAL IV SCH (13:00)
[2024-09-04 04:00] VITALS: BP 147/91; O2SAT 94
[2024-09-04 07:55] VITALS: BP 169/65; O2SAT 95
[2024-09-04 12:00] VITALS: BP 134/53; O2SAT 100
[2024-09-04 15:07] VITALS: BP 143/57; O2SAT 100
[2024-09-04] MEDS ORDERED: fentaNYL CITRATE 50 MCG/ML AMPUL IV PUSH ONE (17:00)
[2024-09-04 19:39] LABS: MONONUCLEAR 5.8 %; POLYMORPHONUCLEAR 94.2 %
[2024-09-04 20:00] VITALS: BP 145/51; O2SAT 100
[2024-09-04 20:04] LABS: GLU PLEURAL FLUID 107 mg/dl; LDH PLEURAL FLUID 450 U/L; TP PLEURAL FLUID 3.8 g/dl
[2024-09-04 20:13] LABS: CHOL PLEURAL FLUID < 50 mg/dl
[2024-09-04 23:18] VITALS: BP 146/51; O2SAT 100
[2024-09-05] VITALS (7 sets, daily range): BP systolic 119–151; BP diastolic 48–56; O2SAT 100
[2024-09-05 06:39] LABS: BASO % 0.3 % (0.1-1.2); EOS # 0.30 (0.04-0.54); EOS % 2.4 % (0.7-7.0); LYMPH # 1.09 (1.18-3.74); LYMPH % 8.9 % (19.3-53.1); MEAN PLATELET VOLUME 11.70 fl (9.4-12.4); MONO # 1.36 (0.24-0.82); MONO % 11.1 % (4.7-12.5); NEUT # 9.31 (1.56-6.13); NEUT % 76.1 % (34.0-71.1); RED CELL DISTRIBUTION WIDTH 15.5 % (11.6-14.4)
[2024-09-05 07:38] LABS: BUN CREA RATIO 21.0 (7.0-25.0); CREATININE SERUM 1.23 mg/dL (0.70-1.30); GFR 58.87; GLUCOSE FASTING 144.0 mg/dL (65-100); OSMOLALITY SERUM 290.0 MOSM/KG (275-295)
[2024-09-06] VITALS (7 sets, daily range): BP systolic 141–163; BP diastolic 44–54; O2SAT 100
[2024-09-06] MEDS ORDERED: PANTOPRAZOLE SODIUM 40 MG TABLET.DR PO SCH (09:00)
[2024-09-06 20:13] LABS: BASO % 0.3 % (0.1-1.2); EOS # 0.14 (0.04-0.54); EOS % 1.2 % (0.7-7.0); LYMPH # 1.05 (1.18-3.74); LYMPH % 8.9 % (19.3-53.1); MEAN PLATELET VOLUME 11.00 fl (9.4-12.4); MONO # 1.28 (0.24-0.82); MONO % 10.9 % (4.7-12.5); NEUT # 9.01 (1.56-6.13); NEUT % 76.8 % (34.0-71.1); RED CELL DISTRIBUTION WIDTH 16.2 % (11.6-14.4)
[2024-09-06 20:50] LABS: ALT/SGPT 28.0 U/L (12-78); AST/SGOT 21.0 U/L (15-37); BILIRUBIN TOTAL 0.68 mg/dL (0.3-1.2); BUN CREA RATIO 21.0 (7.0-25.0); CREATININE SERUM 1.09 mg/dL (0.70-1.30); GFR 67.68; GLOBULINA 4.2 G/DL (2.4-3.5); OSMOLALITY SERUM 293.0 MOSM/KG (275-295)
[2024-09-06 21:30] LABS: GLUCOSE FASTING 313.0 mg/dL (65-100)
[2024-09-07] VITALS (8 sets, daily range): BP systolic 150–168; BP diastolic 54–66; O2SAT 95–100
[2024-09-07 07:14] LABS: BASO % 0.5 % (0.1-1.2); EOS # 0.16 (0.04-0.54); EOS % 1.3 % (0.7-7.0); LYMPH # 1.44 (1.18-3.74); LYMPH % 11.8 % (19.3-53.1); MEAN PLATELET VOLUME 11.50 fl (9.4-12.4); MONO # 1.33 (0.24-0.82); MONO % 10.9 % (4.7-12.5); NEUT # 8.95 (1.56-6.13); NEUT % 73.6 % (34.0-71.1); RED CELL DISTRIBUTION WIDTH 16.4 % (11.6-14.4)
[2024-09-07 08:12] LABS: ALT/SGPT 24.0 U/L (12-78); AST/SGOT 17.0 U/L (15-37); BILIRUBIN TOTAL 0.66 mg/dL (0.3-1.2); BUN CREA RATIO 21.0 (7.0-25.0); CREATININE SERUM 0.98 mg/dL (0.70-1.30); GFR 76.52; GLOBULINA 4.1 G/DL (2.4-3.5); GLUCOSE FASTING 122.0 mg/dL (65-100); OSMOLALITY SERUM 289.0 MOSM/KG (275-295)
[2024-09-07] MEDS ORDERED: NIFEDIPINE 60 MG TAB.SA.OSM PO SCH (09:00)
[2024-09-07] MEDS ORDERED: IRON FUM,PS/FOLIC/BCOMP,C NO.9 1 CAP CAPSULE PO SCH (12:27)
[2024-09-07] MEDS ORDERED: DOXAZOSIN MESYLATE 2 MG TABLET PO SCH (17:00)
[2024-09-07] MEDS ORDERED: APIXABAN 5 MG TABLET PO SCH (17:00)
[2024-09-08] VITALS (9 sets, daily range): BP systolic 160–162; BP diastolic 67–72; O2SAT 97–100
[2024-09-08] MEDS ORDERED: CEFTAROLINE FOSAMIL ACETATE 600 MG VIAL IV SCH (21:00)
[2024-09-09] VITALS (8 sets, daily range): BP systolic 133–163; BP diastolic 55–67; O2SAT 97–100
[2024-09-09 07:54] LABS: ALT/SGPT 14.0 U/L (12-78); AST/SGOT 13.0 U/L (15-37); BILIRUBIN TOTAL 0.51 mg/dL (0.3-1.2); BUN CREA RATIO 28.0 (7.0-25.0); CREATININE SERUM 1.2 mg/dL (0.70-1.30); GFR 60.58; GLOBULINA 4.6 G/DL (2.4-3.5); OSMOLALITY SERUM 289.0 MOSM/KG (275-295)
[2024-09-09 07:57] LABS: GLUCOSE FASTING 200.0 mg/dL (65-100)
[2024-09-09 08:22] LABS: BASO % 0.5 % (0.1-1.2); EOS # 0.11 (0.04-0.54); EOS % 0.6 % (0.7-7.0); LYMPH # 1.37 (1.18-3.74); LYMPH % 8.1 % (19.3-53.1); MEAN PLATELET VOLUME 11.10 fl (9.4-12.4); MONO # 1.30 (0.24-0.82); MONO % 7.7 % (4.7-12.5); NEUT # 13.83 (1.56-6.13); NEUT % 81.6 % (34.0-71.1); RED CELL DISTRIBUTION WIDTH 15.9 % (11.6-14.4)
[2024-09-09] MEDS ORDERED: NIFEDIPINE 90 MG TAB.SA.OSM PO SCH (09:00)
[2024-09-09] MEDS ORDERED: ACETAMINOPHEN 500 MG GEL..CAP PO PRN (13:15)
[2024-09-10] VITALS (9 sets, daily range): BP systolic 116–144; BP diastolic 60–88; O2SAT 98–100
[2024-09-10] MEDS ORDERED: TRAMADOL HCL 50 MG TABLET PO PRN (15:45)
[2024-09-10] MEDS ORDERED: DOXAZOSIN MESYLATE 2 MG TABLET PO SCH (17:00)
[2024-09-10] MEDS ORDERED: BUMETANIDE 2.5 MG/10 ML VIAL IV SCH (21:00)
[2024-09-11] VITALS (10 sets, daily range): BP systolic 121–162; BP diastolic 52–72; O2SAT 92–100
[2024-09-11 06:31] LABS: BASO % 0.5 % (0.1-1.2); EOS # 0.21 (0.04-0.54); EOS % 1.4 % (0.7-7.0); LYMPH # 1.03 (1.18-3.74); LYMPH % 6.8 % (19.3-53.1); MEAN PLATELET VOLUME 11.70 fl (9.4-12.4); MONO # 1.28 (0.24-0.82); MONO % 8.5 % (4.7-12.5); NEUT # 12.39 (1.56-6.13); NEUT % 81.8 % (34.0-71.1); RED CELL DISTRIBUTION WIDTH 15.7 % (11.6-14.4)
[2024-09-11 07:43] LABS: ALT/SGPT 12.0 U/L (12-78); AST/SGOT 11.0 U/L (15-37); BILIRUBIN TOTAL 0.49 mg/dL (0.3-1.2); BUN CREA RATIO 23.0 (7.0-25.0); CREATININE SERUM 1.38 mg/dL (0.70-1.30); GFR 51.55; GLOBULINA 5.1 G/DL (2.4-3.5); OSMOLALITY SERUM 287.0 MOSM/KG (275-295)
[2024-09-11 07:45] LABS: GLUCOSE FASTING 219.0 mg/dL (65-100)
[2024-09-11] MEDS ORDERED: ENOXAPARIN SODIUM 40 MG/0.4 ML SYRINGE SUBCUTANEO SCH (09:00)
[2024-09-11] MEDS ORDERED: BUMETANIDE 2.5 MG/10 ML VIAL IV SCH ×2 (09:00→19:45)
[2024-09-11] MEDS ORDERED: AMINO ACIDS/PROTEIN HYDROLYS 30 ML BLIST.PACK PO SCH (13:00)
[2024-09-11] MEDS ORDERED: GABAPENTIN 600 MG TABLET PO SCH (17:00)
[2024-09-11] MEDS ORDERED: BUMETANIDE 1 MG TABLET PO SCH (17:00)
[2024-09-11 20:07] LABS: BASO % 0.4 % (0.1-1.2); EOS # 0.12 (0.04-0.54); EOS % 0.9 % (0.7-7.0); LYMPH # 1.46 (1.18-3.74); LYMPH % 10.4 % (19.3-53.1); MEAN PLATELET VOLUME 11.00 fl (9.4-12.4); MONO # 1.00 (0.24-0.82); MONO % 7.1 % (4.7-12.5); NEUT # 11.29 (1.56-6.13); NEUT % 80.3 % (34.0-71.1); RED CELL DISTRIBUTION WIDTH 15.7 % (11.6-14.4)
[2024-09-11 20:55] LABS: ABG PH 7.472 (7.35-7.45); ABG PO2 159.1 mmHg (80-100); BICARBONATE 31.1 mmol/l (23-25); o2 36 %
[2024-09-12] VITALS (7 sets, daily range): BP systolic 113–132; BP diastolic 36–57; O2SAT 97–100
[2024-09-12] MEDS ORDERED: NOREPINEPHRINE BITARTRATE 8 MG in DEXTROSE 5 % IN WATER 250 ML IV SCH (13:15)
[2024-09-12] MEDS ORDERED: DEXTROSE 5%-WATER 250ML IV.SOLN ONE (14:17)
[2024-09-12] MEDS ORDERED: NOREPINEPHRINE BITARTRATE 4 MG in DEXTROSE 5 % IN WATER 250 ML IV SCH (14:30)
[2024-09-12 17:17] LABS: BASO % 0.3 % (0.1-1.2); EOS # 0.05 (0.04-0.54); EOS % 0.2 % (0.7-7.0); LYMPH # 1.04 (1.18-3.74); LYMPH % 5.1 % (19.3-53.1); MEAN PLATELET VOLUME 11.30 fl (9.4-12.4); MONO # 1.56 (0.24-0.82); MONO % 7.7 % (4.7-12.5); NEUT # 17.42 (1.56-6.13); NEUT % 85.7 % (34.0-71.1); RED CELL DISTRIBUTION WIDTH 15.1 % (11.6-14.4)
[2024-09-12 18:21] LABS: BASO % 0.2 % (0.1-1.2); EOS # 0.04 (0.04-0.54); EOS % 0.2 % (0.7-7.0); LYMPH # 1.10 (1.18-3.74); LYMPH % 5.8 % (19.3-53.1); MEAN PLATELET VOLUME 11.10 fl (9.4-12.4); MONO # 1.41 (0.24-0.82); MONO % 7.4 % (4.7-12.5); NEUT # 16.25 (1.56-6.13); NEUT % 85.1 % (34.0-71.1); RED CELL DISTRIBUTION WIDTH 14.8 % (11.6-14.4)
[2024-09-13] VITALS (7 sets, daily range): BP systolic 129–150; BP diastolic 41–62; O2SAT 95–100
[2024-09-14 00:49] LABS: BASO % 0.5 % (0.1-1.2); EOS # 0.16 (0.04-0.54); EOS % 1.0 % (0.7-7.0); LYMPH # 1.21 (1.18-3.74); LYMPH % 7.5 % (19.3-53.1); MEAN PLATELET VOLUME 11.90 fl (9.4-12.4); MONO # 1.33 (0.24-0.82); MONO % 8.2 % (4.7-12.5); NEUT # 13.14 (1.56-6.13); NEUT % 81.3 % (34.0-71.1); RED CELL DISTRIBUTION WIDTH 15.4 % (11.6-14.4)
[2024-09-14 01:11] LABS: INR 1.15
[2024-09-14 01:28] LABS: ALT/SGPT 9.0 U/L (12-78); AST/SGOT 17.0 U/L (15-37); BILIRUBIN TOTAL 0.47 mg/dL (0.3-1.2); BUN CREA RATIO 26.0 (7.0-25.0); CREATININE SERUM 1.7 mg/dL (0.70-1.30); GFR 40.53; GLOBULINA 4.9 G/DL (2.4-3.5); OSMOLALITY SERUM 295.0 MOSM/KG (275-295)
[2024-09-14 01:45] LABS: GLUCOSE FASTING 246.0 mg/dL (65-100)
[2024-09-14 04:00] VITALS: BP 147/50; O2SAT 97
[2024-09-14 07:03] VITALS: BP 127/70; O2SAT 99
[2024-09-14 12:36] VITALS: BP 154/54; O2SAT 0
[2024-09-14 14:58] VITALS: BP 146/48; O2SAT 100
[2024-09-14] MEDS ORDERED: AMINO ACIDS 1 EACH TABLET PO SCH (17:00)
[2024-09-14 19:59] VITALS: BP 159/62; O2SAT 100
[2024-09-15 01:39] VITALS: BP 168/68; O2SAT 96
[2024-09-15 09:00] VITALS: BP 170/65; O2SAT 94
[2024-09-15 11:11] VITALS: O2SAT 94
[2024-09-15 14:06] VITALS: O2SAT 97
[2024-09-15] MEDS ORDERED: BUMETANIDE 1 MG TABLET PO SCH (17:00)
[2024-09-15 18:43] VITALS: BP 171/63
[2024-09-15 22:09] VITALS: O2SAT 98
[2024-09-16] VITALS (10 sets, daily range): BP systolic 135–170; BP diastolic 60–79; O2SAT 91–100
[2024-09-16 07:41] LABS: BASO % 1.0 % (0.1-1.2); EOS # 0.09 (0.04-0.54); EOS % 0.6 % (0.7-7.0); LYMPH # 1.33 (1.18-3.74); LYMPH % 8.5 % (19.3-53.1); MEAN PLATELET VOLUME 11.90 fl (9.4-12.4); MONO # 1.41 (0.24-0.82); MONO % 9.1 % (4.7-12.5); NEUT # 12.41 (1.56-6.13); NEUT % 79.6 % (34.0-71.1); RED CELL DISTRIBUTION WIDTH 15.9 % (11.6-14.4)
[2024-09-16 08:01] LABS: ALT/SGPT 11.0 U/L (12-78); AST/SGOT 22.0 U/L (15-37); BILIRUBIN TOTAL 0.47 mg/dL (0.3-1.2); BUN CREA RATIO 23.0 (7.0-25.0); CREATININE SERUM 1.42 mg/dL (0.70-1.30); GFR 49.88; GLOBULINA 5.3 G/DL (2.4-3.5); GLUCOSE FASTING 162.0 mg/dL (65-100); OSMOLALITY SERUM 288.0 MOSM/KG (275-295)
[2024-09-16] MEDS ORDERED: SOD PHOSPHATE,MONOBASIC-DIBAS 3 MMOL/ML VIAL IV NR (11:00)
[2024-09-16] MEDS ORDERED: hydrALAZINE HCL 20 MG VIAL IV PRN (12:15)
[2024-09-16] MEDS ORDERED: DOXAZOSIN MESYLATE 4 MG TABLET PO SCH (17:00)
[2024-09-17] VITALS (9 sets, daily range): BP systolic 118–132; BP diastolic 61–66; O2SAT 96–97
[2024-09-17] MEDS ORDERED: DOXAZOSIN MESYLATE 2 MG TABLET PO SCH (17:00)
[2024-09-18] VITALS (9 sets, daily range): BP systolic 132–157; BP diastolic 62–76; O2SAT 86–98
[2024-09-18 06:46] LABS: BASO % 0.5 % (0.1-1.2); EOS # 0.19 (0.04-0.54); EOS % 1.5 % (0.7-7.0); LYMPH # 0.96 (1.18-3.74); LYMPH % 7.4 % (19.3-53.1); MEAN PLATELET VOLUME 10.40 fl (9.4-12.4); MONO # 1.06 (0.24-0.82); MONO % 8.1 % (4.7-12.5); NEUT # 10.60 (1.56-6.13); NEUT % 81.3 % (34.0-71.1); RED CELL DISTRIBUTION WIDTH 15.8 % (11.6-14.4)
[2024-09-18 07:08] LABS: ALT/SGPT 11.0 U/L (12-78); AST/SGOT 12.0 U/L (15-37); BILIRUBIN TOTAL 0.32 mg/dL (0.3-1.2); BUN CREA RATIO 26.0 (7.0-25.0); CREATININE SERUM 1.48 mg/dL (0.70-1.30); GFR 47.55; GLOBULINA 5.1 G/DL (2.4-3.5); GLUCOSE FASTING 159.0 mg/dL (65-100); OSMOLALITY SERUM 292.0 MOSM/KG (275-295)
[2024-09-19] VITALS (12 sets, daily range): BP systolic 123–160; BP diastolic 67–78; O2SAT 89–99
[2024-09-20] VITALS (8 sets, daily range): BP systolic 152–160; BP diastolic 66–76; O2SAT 90–100
[2024-09-20 06:20] LABS: BASO % 0.7 % (0.1-1.2); EOS # 0.12 (0.04-0.54); EOS % 1.1 % (0.7-7.0); LYMPH # 1.22 (1.18-3.74); LYMPH % 11.0 % (19.3-53.1); MEAN PLATELET VOLUME 11.00 fl (9.4-12.4); MONO # 1.05 (0.24-0.82); MONO % 9.4 % (4.7-12.5); NEUT # 8.58 (1.56-6.13); NEUT % 77.0 % (34.0-71.1); RED CELL DISTRIBUTION WIDTH 16.6 % (11.6-14.4)
[2024-09-20 06:41] LABS: ALT/SGPT 8.0 U/L (12-78); AST/SGOT 12.0 U/L (15-37); BILIRUBIN TOTAL 0.32 mg/dL (0.3-1.2); BUN CREA RATIO 21.0 (7.0-25.0); CREATININE SERUM 1.5 mg/dL (0.70-1.30); GFR 46.82; GLOBULINA 5.3 G/DL (2.4-3.5); GLUCOSE FASTING 187.0 mg/dL (65-100); OSMOLALITY SERUM 291.0 MOSM/KG (275-295)
[2024-09-20] MEDS ORDERED: SODIUM CHLORIDE 0.45 % 1,000 ML IV SCH (13:15)
[2024-09-21] VITALS (9 sets, daily range): BP systolic 148–162; BP diastolic 55–70; O2SAT 90–98
[2024-09-21 06:28] LABS: BASO % 0.8 % (0.1-1.2); EOS # 0.19 (0.04-0.54); EOS % 1.7 % (0.7-7.0); LYMPH # 1.20 (1.18-3.74); LYMPH % 10.9 % (19.3-53.1); MEAN PLATELET VOLUME 11.10 fl (9.4-12.4); MONO # 0.85 (0.24-0.82); MONO % 7.7 % (4.7-12.5); NEUT # 8.58 (1.56-6.13); NEUT % 77.8 % (34.0-71.1); RED CELL DISTRIBUTION WIDTH 16.4 % (11.6-14.4)
[2024-09-21 07:16] LABS: ALT/SGPT 7.0 U/L (12-78); AST/SGOT 13.0 U/L (15-37); BILIRUBIN TOTAL 0.28 mg/dL (0.3-1.2); BUN CREA RATIO 22.0 (7.0-25.0); CREATININE SERUM 1.43 mg/dL (0.70-1.30); GFR 49.48; GLOBULINA 5.3 G/DL (2.4-3.5); GLUCOSE FASTING 199.0 mg/dL (65-100); OSMOLALITY SERUM 292.0 MOSM/KG (275-295)
[2024-09-21] MEDS ORDERED: METHYLPREDNISOLONE SOD SUCC 40 MG VIAL IV ONE (08:00)
[2024-09-21] MEDS ORDERED: DIPHENHYDRAMINE HCL 50 MG/ML VIAL 1ML IV ONE (08:00)
[2024-09-21] MEDS ORDERED: FAMOTIDINE/PF 20 MG/2 ML VIAL IV SCH (09:00)
[2024-09-21] MEDS ORDERED: NYSTATIN 30 GM,SILVER SULFADIAZINE 50 GM,ZINC OXIDE 30 GM TOP SCH (12:42)
[2024-09-22] VITALS (9 sets, daily range): BP systolic 138–156; BP diastolic 63–67; O2SAT 94–98
[2024-09-22 14:45] LABS: COVID-19 AG NEGATIVE (NEGATIVE)
[2024-09-22 14:57] LABS: INR 1.1
[2024-09-22 15:26] LABS: URINE APPEARANCE Clear; URINE BILIRRUBIN Negative (NEGATIVE); URINE BLOOD Trace; URINE COLOR Dark Yellow; URINE GLUCOSE Negative (NEGATIVE); URINE KETONE Negative (NEGATIVE); URINE LEUKOCYTE Negative; URINE NITRATE Negative; URINE UROBILINOGEN 0.2 E.U./dl
[2024-09-22 15:30] LABS: URINE BACTERIA 191.9 uL (0.0-1933); URINE CAST 3.51 uL (0.0-1.40); URINE EPITHELIAL CELLS 7.0 uL (0.0-38.8); URINE RBC 89.7 uL (0.0-20.8); URINE WBC 16.1 uL (0.0-23.2)
[2024-09-22 15:52] LABS: URINE PROTEIN 100 (NEGATIVE)
[2024-09-23] VITALS (9 sets, daily range): BP systolic 153–183; BP diastolic 68–79; O2SAT 90–99
[2024-09-23 07:58] LABS: BASO % 1.0 % (0.1-1.2); EOS # 0.20 (0.04-0.54); EOS % 1.8 % (0.7-7.0); LYMPH # 0.96 (1.18-3.74); LYMPH % 8.6 % (19.3-53.1); MEAN PLATELET VOLUME 11.10 fl (9.4-12.4); MONO # 1.06 (0.24-0.82); MONO % 9.5 % (4.7-12.5); NEUT # 8.80 (1.56-6.13); NEUT % 78.5 % (34.0-71.1); RED CELL DISTRIBUTION WIDTH 16.5 % (11.6-14.4)
[2024-09-23 08:19] LABS: ALT/SGPT 8.0 U/L (12-78); AST/SGOT 14.0 U/L (15-37); BILIRUBIN TOTAL 0.42 mg/dL (0.3-1.2); BUN CREA RATIO 20.0 (7.0-25.0); CREATININE SERUM 1.25 mg/dL (0.70-1.30); GFR 57.79; GLOBULINA 5.4 G/DL (2.4-3.5); GLUCOSE FASTING 133.0 mg/dL (65-100); OSMOLALITY SERUM 286.0 MOSM/KG (275-295)
[2024-09-23 12:39] LABS: BASO % 0.9 % (0.1-1.2); EOS # 0.19 (0.04-0.54); EOS % 1.7 % (0.7-7.0); LYMPH # 0.85 (1.18-3.74); LYMPH % 7.6 % (19.3-53.1); MEAN PLATELET VOLUME 11.00 fl (9.4-12.4); MONO # 1.00 (0.24-0.82); MONO % 9.0 % (4.7-12.5); NEUT # 8.92 (1.56-6.13); NEUT % 80.1 % (34.0-71.1); RED CELL DISTRIBUTION WIDTH 16.6 % (11.6-14.4)
[2024-09-24] VITALS (8 sets, daily range): BP systolic 133–156; BP diastolic 53–63; O2SAT 90–100
[2024-09-24] MEDS ORDERED: ACETAMINOPHEN 500 MG GEL..CAP PO PRN (18:30)
[2024-09-25] VITALS: O2SAT 90
[2024-09-25 03:03] VITALS: BP 157/56; O2SAT 95
[2024-09-25 05:36] VITALS: O2SAT 90
[2024-09-25 08:59] LABS: BUN CREA RATIO 20 (7.0-25.0); CREATININE SERUM 1.21 mg/dL (0.70-1.30); GFR 60.00; GLUCOSE FASTING 136 mg/dL (65-100); OSMOLALITY SERUM 286 MOSM/KG (275-295)
[2024-09-25 09:00] LABS: ALT/SGPT < 6 U/L (12-78); AST/SGOT 16 U/L (15-37); BILIRUBIN TOTAL 0.39 mg/dL (0.3-1.2); GLOBULINA 5.3 G/DL (2.4-3.5)
[2024-09-25 09:08] VITALS: BP 154/64; O2SAT 97
[2024-09-25 09:16] VITALS: O2SAT 94
[2024-09-25 12:02] LABS: BASO % 0.9 % (0.1-1.2); EOS # 0.15 (0.04-0.54); EOS % 1.7 % (0.7-7.0); LYMPH # 1.05 (1.18-3.74); LYMPH % 11.6 % (19.3-53.1); MEAN PLATELET VOLUME 10.20 fl (9.4-12.4); MONO # 0.88 (0.24-0.82); MONO % 9.7 % (4.7-12.5); NEUT # 6.86 (1.56-6.13); NEUT % 75.3 % (34.0-71.1); RED CELL DISTRIBUTION WIDTH 16.5 % (11.6-14.4)
[2024-09-25 13:04] LABS: RH POSITIVE
== END 2024-09-25 11:27 | disposition designated cancer center or children's hospital (05) | DRG 291 ==
LOC: ER 15:54 → ICU-2 21:51 → ICU 09-03 20:35 → MEDJ 09-07 12:19 → ICU 09-11 21:55 → MEDJ 09-14 23:28
PROVIDERS: General Practice; Internal Medicine; Internal Medicine Infectious Disease; Internal Medicine Nephrology; Radiology Vascular & Interventional Radiology; ADMIT Internal Medicine; ATTEND Internal Medicine
PROC: BW24ZZZ Computerized Tomography (CT Scan) of Chest and Abdomen (ICD-10-PCS; 2024-08-31)
PROC: 8E0ZXY6 Isolation (ICD-10-PCS; 2024-09-03)
PROC: 0W9930Z Drainage of Right Pleural Cavity with Drainage Device, Percutaneous Approach (ICD-10-PCS; principal; 2024-09-04)
PROC: 0WP930Z Removal of Drainage Device from Right Pleural Cavity, Percutaneous Approach (ICD-10-PCS; 2024-09-04)
PROC: BW24ZZZ Computerized Tomography (CT Scan) of Chest and Abdomen (ICD-10-PCS; 2024-09-04)
PROC: 30233N1 Transfusion of Nonautologous Red Blood Cells into Peripheral Vein, Percutaneous Approach (ICD-10-PCS; 2024-09-05)
PROC: 4A12X4Z Monitoring of Cardiac Electrical Activity, External Approach (ICD-10-PCS; 2024-09-07)
PROC: BW24ZZZ Computerized Tomography (CT Scan) of Chest and Abdomen (ICD-10-PCS; 2024-09-10)
PROC: 0W9930Z Drainage of Right Pleural Cavity with Drainage Device, Percutaneous Approach (ICD-10-PCS; 2024-09-11)
PROC: BW24YZZ Computerized Tomography (CT Scan) of Chest and Abdomen using Other Contrast (ICD-10-PCS; 2024-09-11)
PROC: 0WP930Z Removal of Drainage Device from Right Pleural Cavity, Percutaneous Approach (ICD-10-PCS; 2024-09-11)
PROC: 02HV33Z Insertion of Infusion Device into Superior Vena Cava, Percutaneous Approach (ICD-10-PCS; 2024-09-12)
PROC: BW24ZZZ Computerized Tomography (CT Scan) of Chest and Abdomen (ICD-10-PCS; 2024-09-19)
PROC: BW24YZZ Computerized Tomography (CT Scan) of Chest and Abdomen using Other Contrast (ICD-10-PCS; 2024-09-21)
DX: I13.0 Hypertensive heart and chronic kidney disease with heart failure and stage 1 through stage 4 chronic kidney disease, or unspecified chronic kidney disease (principal); A41.9 Sepsis, unspecified organism; J85.0 Gangrene and necrosis of lung; J85.1 Abscess of lung with pneumonia; J94.2 Hemothorax; I50.20 Unspecified systolic (congestive) heart failure; N17.9 Acute kidney failure, unspecified; I74.8 Embolism and thrombosis of other arteries; L97.929 Non-pressure chronic ulcer of unspecified part of left lower leg with unspecified severity; J94.1 Fibrothorax; E03.9 Hypothyroidism, unspecified; I95.89 Other hypotension; E11.22 Type 2 diabetes mellitus with diabetic chronic kidney disease; D64.9 Anemia, unspecified; Z79.4 Long term (current) use of insulin; I48.91 Unspecified atrial fibrillation; E11.40 Type 2 diabetes mellitus with diabetic neuropathy, unspecified; N18.32 Chronic kidney disease, stage 3b; I27.20 Pulmonary hypertension, unspecified; E11.65 Type 2 diabetes mellitus with hyperglycemia; W19.XXXA Unspecified fall, initial encounter; Y93.9 Activity, unspecified; Y92.9 Unspecified place or not applicable; D69.6 Thrombocytopenia, unspecified; B95.62 Methicillin resistant Staphylococcus aureus infection as the cause of diseases classified elsewhere; K80.20 Calculus of gallbladder without cholecystitis without obstruction; G47.33 Obstructive sleep apnea (adult) (pediatric); L08.9 Local infection of the skin and subcutaneous tissue, unspecified
CPT/HCPCS: 71275

== ENCOUNTER 2024-09-29 08:58 | Inpatient (IN) | payer OTHER ==
[~2024-09-29] VITALS: Ht 175.3 cm; Wt 71.7 kg
[2024-09-29 13:52] VITALS: O2SAT 98
[2024-09-29] MEDS ORDERED: INSULIN LISPRO 1,000 UNIT/10 ML UNITS SUBCUTANEO PRN (14:15)
[2024-09-29] MEDS ORDERED: DEXTROSE 50 % IN WATER 0.5 G/ML VIAL IV PRN (14:15)
[2024-09-29 15:37] LABS: BASO % 0.6 % (0.1-1.2); EOS # 0.18 (0.04-0.54); EOS % 1.7 % (0.7-7.0); LYMPH # 1.41 (1.18-3.74); LYMPH % 13.3 % (19.3-53.1); MEAN PLATELET VOLUME 11.20 fl (9.4-12.4); MONO # 1.04 (0.24-0.82); MONO % 9.8 % (4.7-12.5); NEUT # 7.84 (1.56-6.13); NEUT % 74.1 % (34.0-71.1); RED CELL DISTRIBUTION WIDTH 16.2 % (11.6-14.4)
[2024-09-29 16:01] LABS: ALT/SGPT 8.0 U/L (12-78); AST/SGOT 14.0 U/L (15-37); BILIRUBIN TOTAL 0.39 mg/dL (0.3-1.2); BUN CREA RATIO 16.0 (7.0-25.0); CREATININE SERUM 1.19 mg/dL (0.70-1.30); GFR 61.16; GLOBULINA 5.5 G/DL (2.4-3.5); OSMOLALITY SERUM 285.0 MOSM/KG (275-295)
[2024-09-29 16:04] LABS: GLUCOSE FASTING 217.0 mg/dL (65-100)
[2024-09-29 16:29] VITALS: O2SAT 98
[2024-09-29] MEDS ORDERED: DOXAZOSIN MESYLATE 2 MG TABLET PO SCH (17:00)
[2024-09-29] MEDS ORDERED: ATORVASTATIN CALCIUM 40 MG TABLET PO SCH (17:00)
[2024-09-29] MEDS ORDERED: METOLAZONE 2.5 MG TABLET PO SCH (17:00)
[2024-09-29] MEDS ORDERED: BUMETANIDE 1 MG TABLET PO SCH (17:00)
[2024-09-29] MEDS ORDERED: MAGNESIUM SULFATE IN WATER 50 ML IV NR (19:45)
[2024-09-29 20:20] VITALS: O2SAT 100
[2024-09-29] MEDS ORDERED: CEFTAROLINE FOSAMIL ACETATE 600 MG VIAL IV SCH (21:00)
[2024-09-29 22:47] VITALS: BP 150/62; O2SAT 98
[2024-09-30] VITALS (9 sets, daily range): BP systolic 130–179; BP diastolic 55–64; O2SAT 90–99
[2024-09-30] MEDS ORDERED: LEVOTHYROXINE SODIUM 100 MCG TABLET PO SCH (06:00)
[2024-09-30 07:12] LABS: BASO % 0.6 % (0.1-1.2); EOS # 0.22 (0.04-0.54); EOS % 2.4 % (0.7-7.0); LYMPH # 1.25 (1.18-3.74); LYMPH % 13.8 % (19.3-53.1); MEAN PLATELET VOLUME 10.80 fl (9.4-12.4); MONO # 1.07 (0.24-0.82); MONO % 11.8 % (4.7-12.5); NEUT # 6.44 (1.56-6.13); NEUT % 70.8 % (34.0-71.1); RED CELL DISTRIBUTION WIDTH 16.1 % (11.6-14.4)
[2024-09-30 07:42] LABS: ALT/SGPT 6.0 U/L (12-78); AST/SGOT 15.0 U/L (15-37); BILIRUBIN TOTAL 0.41 mg/dL (0.3-1.2); BUN CREA RATIO 16.0 (7.0-25.0); CREATININE SERUM 1.07 mg/dL (0.70-1.30); GFR 69.14; GLOBULINA 5.3 G/DL (2.4-3.5); GLUCOSE FASTING 126.0 mg/dL (65-100); OSMOLALITY SERUM 284.0 MOSM/KG (275-295)
[2024-09-30] MEDS ORDERED: AMINO ACIDS/PROTEIN HYDROLYS 30 ML BLIST.PACK PO SCH (09:00)
[2024-09-30] MEDS ORDERED: FINASTERIDE 5 MG TABLET PO SCH (09:00)
[2024-09-30] MEDS ORDERED: IRBESARTAN 150 MG TABLET PO SCH (09:00)
[2024-09-30] MEDS ORDERED: NIFEDIPINE 90 MG TAB.SA.OSM PO SCH (09:00)
[2024-09-30] MEDS ORDERED: METRONIDAZOLE/SODIUM CHLORIDE 500 MG/100 ML PIGGYBACK IV SCH (17:00)
[2024-09-30] MEDS ORDERED: levoFLOXacin IN DEXTROSE 5 % 5 MG/ML PIGGYBAG IV SCH (17:00)
[2024-09-30] MEDS ORDERED: ENOXAPARIN SODIUM 60 MG/0.6 ML SYRINGE SUBCUTANEO SCH (18:58)
[2024-09-30] MEDS ORDERED: SPIRONOLACTONE 25 MG TABLET PO SCH (18:59)
[2024-09-30] MEDS ORDERED: GABAPENTIN 300 MG CAPSULE PO PRN (22:15)
[2024-09-30] MEDS ORDERED: ACETAMINOPHEN 500 MG GEL..CAP PO PRN (22:15)
[2024-10-01] VITALS (10 sets, daily range): BP systolic 144–171; BP diastolic 62–68; O2SAT 95–100
[2024-10-01] MEDS ORDERED: ENOXAPARIN SODIUM 80 MG/0.8 ML SYRINGE SUBCUTANEO SCH (09:00)
[2024-10-02 01:01] VITALS: BP 154/80; O2SAT 100
[2024-10-02 06:21] VITALS: O2SAT 100
[2024-10-02 06:21] LABS: BASO % 0.9 % (0.1-1.2); EOS # 0.13 (0.04-0.54); EOS % 1.7 % (0.7-7.0); LYMPH # 1.08 (1.18-3.74); LYMPH % 14.5 % (19.3-53.1); MEAN PLATELET VOLUME 10.10 fl (9.4-12.4); MONO # 0.93 (0.24-0.82); NEUT # 5.20 (1.56-6.13); NEUT % 70.1 % (34.0-71.1); RED CELL DISTRIBUTION WIDTH 15.4 % (11.6-14.4)
[2024-10-02 06:52] LABS: AST/SGOT 12 U/L (15-37); BILIRUBIN TOTAL 0.42 mg/dL (0.3-1.2); BUN CREA RATIO 15 (7.0-25.0); CREATININE SERUM 0.80 mg/dL (0.70-1.30); GFR 96.72; GLOBULINA 5.2 G/DL (2.4-3.5); GLUCOSE FASTING 94 mg/dL (65-100); OSMOLALITY SERUM 281 MOSM/KG (275-295)
[2024-10-02 06:53] LABS: ALT/SGPT < 6 U/L (12-78)
[2024-10-02 07:01] LABS: MONO % 12.5 % (4.7-12.5)
[2024-10-02] MEDS ORDERED: SPIRONOLACTONE 50 MG TABLET PO SCH (09:00)
[2024-10-02] MEDS ORDERED: IRBESARTAN 300 MG TABLET PO SCH (09:00)
[2024-10-02 09:34] VITALS: BP 170/78
[2024-10-02 09:46] VITALS: O2SAT 100
[2024-10-02 17:48] VITALS: O2SAT 100
[2024-10-02 18:01] VITALS: BP 128/82
[2024-10-03] VITALS (9 sets, daily range): BP systolic 158–160; BP diastolic 62–68; O2SAT 99–100
[2024-10-03 19:07] LABS: ABG PH 7.476 (7.35-7.45); BICARBONATE 36.5 mmol/l (23-25)
[2024-10-03 19:32] LABS: ABG PO2 50.9 mmHg (80-100); o2 21 %
[2024-10-04] VITALS (9 sets, daily range): BP systolic 140–170; BP diastolic 66–80; O2SAT 89–100
[2024-10-04 05:31] LABS: ALT/SGPT 6.0 U/L (12-78); AST/SGOT 17.0 U/L (15-37); BILIRUBIN TOTAL 0.37 mg/dL (0.3-1.2); BUN CREA RATIO 10.0 (7.0-25.0); CREATININE SERUM 0.84 mg/dL (0.70-1.30); GFR 91.42; GLOBULINA 5.3 G/DL (2.4-3.5); GLUCOSE FASTING 105.0 mg/dL (65-100); OSMOLALITY SERUM 278.0 MOSM/KG (275-295)
[2024-10-04 07:13] LABS: BASO % 0.6 % (0.1-1.2); EOS # 0.13 (0.04-0.54); EOS % 1.5 % (0.7-7.0); LYMPH # 1.21 (1.18-3.74); LYMPH % 14.0 % (19.3-53.1); MEAN PLATELET VOLUME 10.00 fl (9.4-12.4); MONO # 1.06 (0.24-0.82); NEUT # 6.15 (1.56-6.13); NEUT % 71.1 % (34.0-71.1); RED CELL DISTRIBUTION WIDTH 15.2 % (11.6-14.4)
[2024-10-04 07:40] LABS: MONO % 12.3 % (4.7-12.5)
[2024-10-05] VITALS (9 sets, daily range): BP systolic 149–171; BP diastolic 64–81; O2SAT 97–100
[2024-10-05] MEDS ORDERED: PANTOPRAZOLE SODIUM 40 MG/VIAL VIAL IV PUSH STA (12:46)
[2024-10-06] VITALS (8 sets, daily range): BP systolic 155–169; BP diastolic 70–85; O2SAT 92–100
[2024-10-06] MEDS ORDERED: PANTOPRAZOLE SODIUM 40 MG/VIAL VIAL IV PUSH SCH (09:00)
[2024-10-06 12:51] LABS: BASO % 0.5 % (0.1-1.2); EOS # 0.25 (0.04-0.54); EOS % 2.3 % (0.7-7.0); LYMPH # 1.72 (1.18-3.74); LYMPH % 16.2 % (19.3-53.1); MEAN PLATELET VOLUME 10.10 fl (9.4-12.4); MONO # 0.97 (0.24-0.82); MONO % 9.1 % (4.7-12.5); NEUT # 7.59 (1.56-6.13); NEUT % 71.3 % (34.0-71.1); RED CELL DISTRIBUTION WIDTH 14.2 % (11.6-14.4)
[2024-10-07 00:54] VITALS: O2SAT 99
[2024-10-07 01:00] VITALS: BP 155/70; O2SAT 99
[2024-10-07 05:08] VITALS: O2SAT 94
[2024-10-07 08:37] VITALS: BP 153/66; O2SAT 98
[2024-10-07 09:17] VITALS: O2SAT 99
[2024-10-07] MEDS ORDERED: MOXIFLOXACIN H400 MG PO (12:11)
[2024-10-07] MEDS ORDERED: INTESTINEX680 M1 PO (12:12)
[2024-10-07 12:13] VITALS: O2SAT 100
[2024-10-07] MEDS ORDERED: ELIQUIS5 MG PO (12:13)
[2024-10-07] MEDS ORDERED: INTEGRA PLUS C1 EACH PO (12:16)
[2024-10-07] MEDS ORDERED: LIPITOR40 M1 PO (12:17)
[2024-10-07] MEDS ORDERED: AVAPRO300 MG PO (12:19)
[2024-10-07] MEDS ORDERED: DOXAZOSIN MESYLA2 MG PO (12:20)
[2024-10-07] MEDS ORDERED: PROCARDIA XL90 MG PO (12:20)
[2024-10-07] MEDS ORDERED: SPIRONOLACTONE50 MG PO (12:20)
[2024-10-07] MEDS ORDERED: METOLAZONE2.5 MG PO (12:21)
[2024-10-07] MEDS ORDERED: BUMETANIDE1 MG PO (12:21)
[2024-10-07] MEDS ORDERED: GABAPENTIN300 MG PO (12:21)
[2024-10-07] MEDS ORDERED: FINASTERIDE5 MG PO (12:22)
[2024-10-07] MEDS ORDERED: PROTEINEX-18 LI30 ML PO (12:22)
[2024-10-07] MEDS ORDERED: SYNTHROID100 MCG PO (12:22)
[2024-10-07] MEDS ORDERED: PROTONIX40 MG PO (12:23)
[2024-10-07] MEDS ORDERED: ISOSORBIDE DINI20 MG PO (12:23)
== END 2024-10-07 15:23 | disposition home or self-care (01) | DRG 186 ==
LOC: MEDI 08:58
PROVIDERS: ADMIT Internal Medicine; ATTEND Internal Medicine
PROC: 4A12X4Z Monitoring of Cardiac Electrical Activity, External Approach (ICD-10-PCS; principal; 2024-09-29)
PROC: 30233N1 Transfusion of Nonautologous Red Blood Cells into Peripheral Vein, Percutaneous Approach (ICD-10-PCS; 2024-10-04)
DX: J90 Pleural effusion, not elsewhere classified (principal); A41.9 Sepsis, unspecified organism; J85.2 Abscess of lung without pneumonia; J85.0 Gangrene and necrosis of lung; N17.9 Acute kidney failure, unspecified; J98.11 Atelectasis; I50.30 Unspecified diastolic (congestive) heart failure; I50.9 Heart failure, unspecified; E11.9 Type 2 diabetes mellitus without complications; Z79.4 Long term (current) use of insulin; I48.91 Unspecified atrial fibrillation; I11.0 Hypertensive heart disease with heart failure; N18.32 Chronic kidney disease, stage 3b; D64.9 Anemia, unspecified; D72.829 Elevated white blood cell count, unspecified; G47.33 Obstructive sleep apnea (adult) (pediatric)
CPT/HCPCS: 240

== ENCOUNTER 2024-11-13 12:11 | Inpatient (IN) | payer OTHER ==
[~2024-11-13] VITALS: Ht 165.1 cm; Wt 131.5 kg
[~2024-11-13 12:11] MED LIST changes: +GABAPENTIN300 MG PO; +INTESTINEX680 M1 PO; +MOXIFLOXACIN H400 MG PO; +PROTONIX40 MG PO; +SPIRONOLACTONE50 MG PO; +SYNTHROID100 MCG PO
[2024-11-13] MEDS ORDERED: ONDANSETRON HCL 4 MG in 0.9 % SODIUM CHLORIDE 50 ML IV ONE (14:45)
[2024-11-13] MEDS ORDERED: FAMOTIDINE/PF 20 MG in 0.9 % SODIUM CHLORIDE 8 ML IV PUSH ONE (14:45)
[2024-11-13] MEDS ORDERED: ACETAMINOPHEN 500 MG GEL..CAP PO ONE ×2 (14:45→15:05)
[2024-11-13] MEDS ORDERED: 0.9 % SODIUM CHLORIDE 1,000 ML IV SCH (14:45)
[2024-11-13] MEDS ORDERED: ONDANSETRON HCL 2 MG/ML VIAL ONE (15:01)
[2024-11-13] MEDS ORDERED: FAMOTIDINE/PF 20 MG/2 ML VIAL ONE (15:02)
[2024-11-13 15:52] LABS: URINE APPEARANCE Clear; URINE BILIRRUBIN Negative (NEGATIVE); URINE BLOOD Small; URINE COLOR Yellow; URINE KETONE Negative (NEGATIVE); URINE LEUKOCYTE Moderate; URINE NITRATE Positive; URINE PROTEIN 30 (NEGATIVE); URINE UROBILINOGEN 1.0 E.U./dl
[2024-11-13 15:56] LABS: URINE BACTERIA 6006.0 uL (0.0-1933); URINE CAST 3.95 uL (0.0-1.40); URINE RBC 232.0 uL (0.0-20.8); URINE WBC 309.8 uL (0.0-23.2)
[2024-11-13 15:58] LABS: BASO % 0.5 % (0.1-1.2); EOS # 0.09 (0.04-0.54); EOS % 0.6 % (0.7-7.0); LYMPH # 1.69 (1.18-3.74); LYMPH % 11.3 % (19.3-53.1); MEAN PLATELET VOLUME 10.70 fl (9.4-12.4); MONO # 1.05 (0.24-0.82); MONO % 7.0 % (4.7-12.5); NEUT # 11.94 (1.56-6.13); NEUT % 80.0 % (34.0-71.1); RED CELL DISTRIBUTION WIDTH 13.2 % (11.6-14.4)
[2024-11-13] MEDS ORDERED: BARIUM SULFATE 450 ML ORAL.SUSP PO ONE (16:06)
[2024-11-13 16:11] LABS: ERYTHROCYTE SEDIMENTATION RATE > 130 mm/hr (0-20)
[2024-11-13 16:19] LABS: ALT/SGPT 10.0 U/L (12-78); AST/SGOT 13.0 U/L (15-37); BILIRUBIN TOTAL 0.47 mg/dL (0.3-1.2); BUN CREA RATIO 12.0 (7.0-25.0); CREATININE SERUM 0.98 mg/dL (0.70-1.30); GFR 76.52; GLOBULINA 6.7 G/DL (2.4-3.5); OSMOLALITY SERUM 279.0 MOSM/KG (275-295)
[2024-11-13 16:20] LABS: INR 1.09
[2024-11-13 16:23] LABS: GLUCOSE FASTING 267.0 mg/dL (65-100); URINE EPITHELIAL CELLS 0.6 uL (0.0-38.8); URINE GLUCOSE 250 MG/DL (NEGATIVE); URINE YEAST MODERATE /hpf
[2024-11-13] MEDS ORDERED: KETOROLAC TROMETHAMINE 30 MG VIAL IV ONE (18:00)
[2024-11-13] MEDS ORDERED: VANCOMYCIN HCL 1,000 MG VIAL IV SCH (18:01)
[2024-11-13] MEDS ORDERED: ACETAMINOPHEN 500 MG GEL..CAP PO PRN (18:15)
[2024-11-13] MEDS ORDERED: MORPHINE SULFATE 4 MG/ML CARTRIDGE IV PRN (18:15)
[2024-11-13] MEDS ORDERED: NIFEDIPINE 90 MG TAB.SA.OSM PO SCH (19:14)
[2024-11-13] MEDS ORDERED: ATORVASTATIN CALCIUM 40 MG TABLET PO SCH (19:14)
[2024-11-13] MEDS ORDERED: IRBESARTAN 300 MG TABLET PO SCH (19:14)
[2024-11-13] MEDS ORDERED: INSULIN LISPRO 1,000 UNIT/10 ML UNITS SUBCUTANEO PRN (19:15)
[2024-11-13] MEDS ORDERED: SPIRONOLACTONE 50 MG TABLET PO SCH (19:15)
[2024-11-13] MEDS ORDERED: DEXTROSE 50 % IN WATER 0.5 G/ML DISP.SYRIN IV PRN (19:15)
[2024-11-13] MEDS ORDERED: GABAPENTIN 300 MG CAPSULE PO SCH (19:15)
[2024-11-13] MEDS ORDERED: ENOXAPARIN SODIUM 40 MG/0.4 ML SYRINGE SUBCUTANEO SCH (19:21)
[2024-11-13] MEDS ORDERED: APIXABAN 5 MG TABLET PO SCH (19:43)
[2024-11-13] MEDS ORDERED: GUAIFENESIN 100 MG/5 ML BLIST.PACK PO SCH (21:00)
[2024-11-13] MEDS ORDERED: FAMOTIDINE/PF 20 MG in 0.9 % SODIUM CHLORIDE 8 ML IV PUSH SCH (21:00)
[2024-11-13] MEDS ORDERED: CEFEPIME HCL 2,000 MG in 0.9 % SODIUM CHLORIDE 100 ML IV SCH (21:00)
[2024-11-14 02:22] VITALS: BP 122/63; O2SAT 99
[2024-11-14 04:51] LABS: BASO % 0.9 % (0.1-1.2); EOS # 0.28 (0.04-0.54); EOS % 2.7 % (0.7-7.0); LYMPH # 1.90 (1.18-3.74); LYMPH % 18.1 % (19.3-53.1); MEAN PLATELET VOLUME 10.40 fl (9.4-12.4); MONO # 1.11 (0.24-0.82); MONO % 10.6 % (4.7-12.5); NEUT # 7.00 (1.56-6.13); NEUT % 66.6 % (34.0-71.1); RED CELL DISTRIBUTION WIDTH 13.2 % (11.6-14.4)
[2024-11-14 06:46] LABS: ABG PH 7.412 (7.35-7.45); ABG PO2 157.5 mmHg (80-100); BICARBONATE 32.4 mmol/l (23-25)
[2024-11-14 07:01] LABS: o2 32 %
[2024-11-14 08:34] VITALS: BP 153/67
[2024-11-14] MEDS ORDERED: FAMOTIDINE/PF 20 MG in 0.9 % SODIUM CHLORIDE 8 ML IV PUSH SCH (09:00)
[2024-11-14] MEDS ORDERED: BUMETANIDE 2.5 MG/10 ML VIAL IV SCH (14:09)
[2024-11-14] MEDS ORDERED: TUBERCULIN,PURIF.PROT.DERIV. 5 TU/0.1 ML VIAL ID NR (16:30)
[2024-11-14 19:08] VITALS: BP 160/55; O2SAT 98
[2024-11-15 02:26] VITALS: BP 138/64; O2SAT 100
[2024-11-15] MEDS ORDERED: LEVOTHYROXINE SODIUM 88 MCG TABLET PO SCH (06:00)
[2024-11-15] MEDS ORDERED: INSULIN GLARGINE,HUM.REC.ANLOG 1,000 UNITS/10 ML UNITS SUBCUTANEO SCH (09:00)
[2024-11-15 09:20] VITALS: BP 176/69; O2SAT 97
[2024-11-15] MEDS ORDERED: NIFEDIPINE 90 MG TAB.SA.OSM PO SCH (10:31)
[2024-11-15] MEDS ORDERED: GUAIFENESIN 100 MG/5 ML BLIST.PACK PO SCH (13:00)
[2024-11-15] MEDS ORDERED: AMINO ACIDS/PROTEIN HYDROLYS 30 ML BLIST.PACK PO SCH (13:00)
[2024-11-15 15:15] LABS: ALT/SGPT 10.0 U/L (12-78); AST/SGOT 17.0 U/L (15-37); BILIRUBIN TOTAL 0.59 mg/dL (0.3-1.2); BUN CREA RATIO 17.0 (7.0-25.0); CHOL HDL RATIO 3.1 (0-5.0); CREATININE SERUM 1.03 mg/dL (0.70-1.30); GFR 72.25; GLOBULINA 6.1 G/DL (2.4-3.5); HDL 33.0 mg/dl (40-60); LDL 44.0 mg/dl (0-130); OSMOLALITY SERUM 282.0 MOSM/KG (275-295); TSH 4.54 uIU/mL (0.358-3.74); VLDL 25.0 (0-39)
[2024-11-15 15:16] LABS: GLUCOSE FASTING 276.0 mg/dL (65-100)
[2024-11-15] MEDS ORDERED: DOXAZOSIN MESYLATE 2 MG TABLET PO SCH (17:00)
[2024-11-15] MEDS ORDERED: SODIUM POLYSTYRENE SULFONATE 30G/8 TSP PO NR (17:00)
[2024-11-15 20:00] VITALS: BP 169/64
[2024-11-16 01:25] VITALS: BP 164/68; O2SAT 99
[2024-11-16] MEDS ORDERED: LEVOTHYROXINE SODIUM 100 MCG TABLET PO SCH (06:00)
[2024-11-16 06:20] LABS: BASO % 1.0 % (0.1-1.2); EOS # 0.40 (0.04-0.54); EOS % 3.8 % (0.7-7.0); LYMPH # 1.80 (1.18-3.74); LYMPH % 17.2 % (19.3-53.1); MEAN PLATELET VOLUME 10.90 fl (9.4-12.4); MONO # 0.97 (0.24-0.82); MONO % 9.3 % (4.7-12.5); NEUT # 7.12 (1.56-6.13); NEUT % 67.9 % (34.0-71.1); RED CELL DISTRIBUTION WIDTH 13.4 % (11.6-14.4)
[2024-11-16 08:54] VITALS: BP 179/74; O2SAT 100
[2024-11-16] MEDS ORDERED: VANCOMYCIN HCL 5 MG/ML REDILUIDO IV SCH (09:00)
[2024-11-16] MEDS ORDERED: MEROPENEM 500 MG/VIAL VIAL IV SCH (12:00)
[2024-11-16 15:12] LABS: BASO % 0.8 % (0.1-1.2); EOS # 0.29 (0.04-0.54); EOS % 2.4 % (0.7-7.0); LYMPH # 1.90 (1.18-3.74); LYMPH % 16.0 % (19.3-53.1); MEAN PLATELET VOLUME 11.30 fl (9.4-12.4); MONO # 0.84 (0.24-0.82); MONO % 7.1 % (4.7-12.5); NEUT # 8.73 (1.56-6.13); NEUT % 73.2 % (34.0-71.1); RED CELL DISTRIBUTION WIDTH 13.5 % (11.6-14.4)
[2024-11-16 15:50] LABS: ALT/SGPT 9.0 U/L (12-78); AST/SGOT 10.0 U/L (15-37); BILIRUBIN TOTAL 0.38 mg/dL (0.3-1.2); BUN CREA RATIO 21.0 (7.0-25.0); CREATININE SERUM 1.17 mg/dL (0.70-1.30); GFR 62.37; GLOBULINA 6.1 G/DL (2.4-3.5); OSMOLALITY SERUM 289.0 MOSM/KG (275-295)
[2024-11-16 16:15] LABS: GLUCOSE FASTING 296.0 mg/dL (65-100)
[2024-11-16] MEDS ORDERED: GABAPENTIN 300 MG CAPSULE PO SCH (17:00)
[2024-11-16 19:01] VITALS: BP 149/61
[2024-11-16] MEDS ORDERED: MIDAZOLAM HCL 2 MG/2 ML VIAL IV PUSH ONE (19:30)
[2024-11-16] MEDS ORDERED: fentaNYL CITRATE 50 MCG/ML AMPUL IV PUSH ONE (19:30)
[2024-11-16] MEDS ORDERED: INSULIN GLARGINE,HUM.REC.ANLOG 1,000 UNITS/10 ML UNITS SUBCUTANEO SCH (21:00)
[2024-11-17 00:51] LABS: MONONUCLEAR 28.8 %; POLYMORPHONUCLEAR 71.2 %
[2024-11-17 01:14] LABS: GLU PLEURAL FLUID 66 mg/dl
[2024-11-17 02:11] VITALS: BP 166/65; O2SAT 96
[2024-11-17 06:15] LABS: BASO % 0.8 % (0.1-1.2); EOS # 0.29 (0.04-0.54); EOS % 2.7 % (0.7-7.0); LYMPH # 1.57 (1.18-3.74); LYMPH % 14.4 % (19.3-53.1); MEAN PLATELET VOLUME 11.00 fl (9.4-12.4); MONO # 0.90 (0.24-0.82); MONO % 8.2 % (4.7-12.5); NEUT # 7.99 (1.56-6.13); NEUT % 73.3 % (34.0-71.1); RED CELL DISTRIBUTION WIDTH 13.3 % (11.6-14.4)
[2024-11-17 06:52] LABS: ALT/SGPT 9.0 U/L (12-78); AST/SGOT 8.0 U/L (15-37); BILIRUBIN TOTAL 0.35 mg/dL (0.3-1.2); BUN CREA RATIO 20.0 (7.0-25.0); CREATININE SERUM 1.01 mg/dL (0.70-1.30); GFR 73.91; GLOBULINA 5.4 G/DL (2.4-3.5); OSMOLALITY SERUM 288.0 MOSM/KG (275-295)
[2024-11-17 06:53] LABS: GLUCOSE FASTING 235.0 mg/dL (65-100)
[2024-11-17] MEDS ORDERED: MUPIROCIN 22 GM OINT..GM TUBE NASAL SCH (09:00)
[2024-11-17] MEDS ORDERED: CHLORHEXIDINE GLUCONATE 120 ML BOTTLE TOP SCH (09:00)
[2024-11-17 09:55] VITALS: BP 186/70; O2SAT 95
[2024-11-17] MEDS ORDERED: VANCOMYCIN HCL 5 MG/ML REDILUIDO IV SCH (11:00)
[2024-11-17] MEDS ORDERED: DOXAZOSIN MESYLATE 2 MG TABLET PO STA (11:55)
[2024-11-17] MEDS ORDERED: DOXAZOSIN MESYLATE 2 MG TABLET PO SCH (17:00)
[2024-11-17 18:34] VITALS: BP 151/66; O2SAT 98
[2024-11-18 01:35] VITALS: BP 170/68; O2SAT 100
[2024-11-18 10:07] VITALS: BP 157/73; O2SAT 100
[2024-11-18] MEDS ORDERED: INSULIN LISPRO 1,000 UNIT/10 ML UNITS SUBCUTANEO SCH (12:00)
[2024-11-18] MEDS ORDERED: TRAMADOL HCL 50 MG TABLET PO PRN (12:45)
[2024-11-18 17:19] VITALS: BP 131/61; O2SAT 100
[2024-11-19 02:04] VITALS: BP 156/66; O2SAT 100
[2024-11-19 08:27] LABS: ALT/SGPT 8.0 U/L (12-78); AST/SGOT 10.0 U/L (15-37); BILIRUBIN TOTAL 0.31 mg/dL (0.3-1.2); BUN CREA RATIO 22.0 (7.0-25.0); CREATININE SERUM 0.91 mg/dL (0.70-1.30); GFR 83.36; GLOBULINA 5.6 G/DL (2.4-3.5); GLUCOSE FASTING 89.0 mg/dL (65-100); OSMOLALITY SERUM 283.0 MOSM/KG (275-295)
[2024-11-19 08:51] LABS: BASO % 0.6 % (0.1-1.2); EOS # 0.30 (0.04-0.54); EOS % 3.6 % (0.7-7.0); LYMPH # 1.77 (1.18-3.74); LYMPH % 21.5 % (19.3-53.1); MEAN PLATELET VOLUME 10.80 fl (9.4-12.4); MONO # 0.69 (0.24-0.82); MONO % 8.4 % (4.7-12.5); NEUT # 5.36 (1.56-6.13); NEUT % 64.9 % (34.0-71.1); RED CELL DISTRIBUTION WIDTH 13.4 % (11.6-14.4)
[2024-11-19 09:32] VITALS: BP 168/72; O2SAT 100
[2024-11-19] MEDS ORDERED: CEFTAZIDIME/AVIBACTAM 2.5 GM VIAL IV SCH ×2 (17:00)
[2024-11-19] MEDS ORDERED: AZTREONAM 2,000 MG in 0.9 % SODIUM CHLORIDE 100 ML IV SCH (17:00)
[2024-11-19] MEDS ORDERED: [UNRECOGNIZED DRUG - OTHER] IV SCH ×2 (17:00)
[2024-11-19 17:31] VITALS: BP 141/62; O2SAT 100
[2024-11-20 03:10] VITALS: BP 163/67; O2SAT 99
[2024-11-20] MEDS ORDERED: SODIUM CL 0.9% 100 ML IV.SOLN IV ONE ×2 (08:55→16:32)
[2024-11-20 09:19] VITALS: BP 156/74; O2SAT 100
[2024-11-20] MEDS ORDERED: INSULIN LISPRO 1,000 UNIT/10 ML UNITS SUBCUTANEO SCH (12:00)
[2024-11-20 17:51] VITALS: BP 138/63; O2SAT 92
[2024-11-20] MEDS ORDERED: AZTREONAM/AVIBACTAM SODIUM 2 GM VIAL IV SCH (18:00)
[2024-11-20] MEDS ORDERED: INSULIN GLARGINE,HUM.REC.ANLOG 1,000 UNITS/10 ML UNITS SUBCUTANEO SCH (21:00)
[2024-11-21 01:29] VITALS: BP 143/62; O2SAT 98
[2024-11-21 05:42] LABS: BASO % 0.7 % (0.1-1.2); EOS # 0.29 (0.04-0.54); EOS % 3.6 % (0.7-7.0); LYMPH # 1.65 (1.18-3.74); LYMPH % 20.4 % (19.3-53.1); MEAN PLATELET VOLUME 10.80 fl (9.4-12.4); MONO # 0.68 (0.24-0.82); MONO % 8.4 % (4.7-12.5); NEUT # 5.34 (1.56-6.13); NEUT % 66.0 % (34.0-71.1); RED CELL DISTRIBUTION WIDTH 13.2 % (11.6-14.4)
[2024-11-21 06:47] LABS: ALT/SGPT 8.0 U/L (12-78); AST/SGOT 11.0 U/L (15-37); BILIRUBIN TOTAL 0.24 mg/dL (0.3-1.2); BUN CREA RATIO 20.0 (7.0-25.0); CREATININE SERUM 0.95 mg/dL (0.70-1.30); GFR 79.32; GLOBULINA 5.3 G/DL (2.4-3.5); GLUCOSE FASTING 134.0 mg/dL (65-100); OSMOLALITY SERUM 280.0 MOSM/KG (275-295)
[2024-11-21 09:26] VITALS: BP 144/60; O2SAT 99
[2024-11-21] MEDS ORDERED: MAGNESIUM SULFATE IN WATER 50 ML IV NR (12:30)
[2024-11-21 16:30] VITALS: BP 165/78; O2SAT 100
[2024-11-22 01:24] VITALS: BP 150/56; O2SAT 98
[2024-11-22 09:51] VITALS: BP 157/70; O2SAT 99
[2024-11-22] MEDS ORDERED: TRAMADOL HCL 50 MG TABLET PO PRN (11:45)
[2024-11-22] MEDS ORDERED: AMOXICILLIN/POTASSIUM CLAV 875-125 TABLET PO SCH (17:00)
[2024-11-22] MEDS ORDERED: BUMETANIDE 0.5 MG TABLET PO SCH (17:00)
[2024-11-22 18:10] VITALS: BP 137/61; O2SAT 100
[2024-11-23 03:22] VITALS: BP 150/56; O2SAT 100
[2024-11-23 09:07] VITALS: BP 160/70; O2SAT 100
[2024-11-23] MEDS ORDERED: AMINO ACIDS 1 EACH TABLET PO SCH (17:00)
[2024-11-23 20:41] VITALS: BP 160/66; O2SAT 100
[2024-11-24 03:11] VITALS: BP 172/68; O2SAT 100
[2024-11-24 06:27] LABS: BASO % 0.9 % (0.1-1.2); EOS # 0.23 (0.04-0.54); EOS % 3.5 % (0.7-7.0); LYMPH # 1.76 (1.18-3.74); LYMPH % 27.0 % (19.3-53.1); MEAN PLATELET VOLUME 10.20 fl (9.4-12.4); MONO # 0.59 (0.24-0.82); MONO % 9.0 % (4.7-12.5); NEUT # 3.85 (1.56-6.13); NEUT % 59.0 % (34.0-71.1); RED CELL DISTRIBUTION WIDTH 13.2 % (11.6-14.4)
[2024-11-24 07:12] LABS: ALT/SGPT 19.0 U/L (12-78); AST/SGOT 41.0 U/L (15-37); BILIRUBIN TOTAL 0.32 mg/dL (0.3-1.2); BUN CREA RATIO 25.0 (7.0-25.0); CREATININE SERUM 0.59 mg/dL (0.70-1.30); GFR 137.44; GLOBULINA 4.8 G/DL (2.4-3.5); GLUCOSE FASTING 104.0 mg/dL (65-100); OSMOLALITY SERUM 284.0 MOSM/KG (275-295)
[2024-11-24] MEDS ORDERED: INSULIN LISPRO 1,000 UNIT/10 ML UNITS SUBCUTANEO SCH ×3 (08:00→17:00)
[2024-11-24 08:40] VITALS: BP 170/70; O2SAT 99
[2024-11-24 12:28] VITALS: BP 150/67
[2024-11-24] MEDS ORDERED: ALBUMIN HUMAN 100 ML VIAL IV SCH (13:00)
[2024-11-24 16:57] VITALS: BP 160/60
[2024-11-24 20:05] LABS: COVID-19 AG NEGATIVE (NEGATIVE)
[2024-11-25 02:21] VITALS: BP 157/69; O2SAT 100
[2024-11-25 11:31] VITALS: BP 184/63; O2SAT 99
[2024-11-25 19:24] VITALS: BP 156/61
[2024-11-26 02:59] VITALS: BP 150/68; O2SAT 100
[2024-11-26 11:16] VITALS: BP 142/87; O2SAT 100
[2024-11-27 01:35] VITALS: BP 180/73; O2SAT 100
[2024-11-27 06:13] LABS: BASO % 0.9 % (0.1-1.2); EOS # 0.16 (0.04-0.54); EOS % 2.4 % (0.7-7.0); LYMPH # 1.81 (1.18-3.74); LYMPH % 26.8 % (19.3-53.1); MEAN PLATELET VOLUME 10.40 fl (9.4-12.4); MONO # 0.63 (0.24-0.82); MONO % 9.3 % (4.7-12.5); NEUT # 4.07 (1.56-6.13); NEUT % 60.3 % (34.0-71.1); RED CELL DISTRIBUTION WIDTH 13.4 % (11.6-14.4)
[2024-11-27 06:29] LABS: ERYTHROCYTE SEDIMENTATION RATE 95 mm/hr (0-20)
[2024-11-27 06:51] LABS: ALT/SGPT 18.0 U/L (12-78); AST/SGOT 20.0 U/L (15-37); BILIRUBIN TOTAL 0.26 mg/dL (0.3-1.2); BUN CREA RATIO 23.0 (7.0-25.0); CREATININE SERUM 0.66 mg/dL (0.70-1.30); GFR 120.76; GLOBULINA 4.8 G/DL (2.4-3.5); GLUCOSE FASTING 171.0 mg/dL (65-100); OSMOLALITY SERUM 286.0 MOSM/KG (275-295)
[2024-11-27 08:52] VITALS: BP 189/71; O2SAT 97
[2024-11-27] MEDS ORDERED: DOXAZOSIN MESYLATE 4 MG TABLET PO SCH (09:00)
[2024-11-27 18:01] VITALS: BP 138/60; O2SAT 100
[2024-11-28 02:41] VITALS: BP 145/65; O2SAT 100
[2024-11-28 08:43] VITALS: BP 162/65; O2SAT 97
[2024-11-28 18:32] VITALS: BP 150/67; O2SAT 100
[2024-11-28] MEDS ORDERED: INSULIN GLARGINE,HUM.REC.ANLOG 1,000 UNITS/10 ML UNITS SUBCUTANEO SCH (21:00)
[2024-11-29 02:48] VITALS: BP 169/56; O2SAT 100
[2024-11-29 10:10] VITALS: BP 171/66; O2SAT 99
[2024-11-29 18:31] VITALS: BP 146/62; O2SAT 97
[2024-11-30 02:36] VITALS: BP 143/61; O2SAT 100
[2024-11-30 06:16] LABS: BASO % 1.1 % (0.1-1.2); EOS # 0.23 (0.04-0.54); EOS % 4.0 % (0.7-7.0); LYMPH # 1.45 (1.18-3.74); LYMPH % 25.4 % (19.3-53.1); MEAN PLATELET VOLUME 11.10 fl (9.4-12.4); MONO # 0.51 (0.24-0.82); MONO % 8.9 % (4.7-12.5); NEUT # 3.43 (1.56-6.13); NEUT % 60.2 % (34.0-71.1); RED CELL DISTRIBUTION WIDTH 14.1 % (11.6-14.4)
[2024-11-30 06:36] LABS: ALT/SGPT 16.0 U/L (12-78); AST/SGOT 16.0 U/L (15-37); BILIRUBIN TOTAL 0.22 mg/dL (0.3-1.2); BUN CREA RATIO 20.0 (7.0-25.0); CREATININE SERUM 0.74 mg/dL (0.70-1.30); GFR 105.82; GLOBULINA 4.3 G/DL (2.4-3.5); GLUCOSE FASTING 135.0 mg/dL (65-100); OSMOLALITY SERUM 292.0 MOSM/KG (275-295)
[2024-11-30] MEDS ORDERED: BUMETANIDE 0.25 MG/ML VIAL 4ML IV SCH (09:30)
[2024-11-30 10:41] VITALS: BP 161/51; O2SAT 99
[2024-11-30] MEDS ORDERED: MAGNESIUM SULFATE IN WATER 50 ML IV NR (11:30)
[2024-11-30 18:20] VITALS: BP 140/53; O2SAT 100
[2024-12-01 02:33] VITALS: BP 147/64; O2SAT 100
[2024-12-01 05:21] LABS: COVID-19 AG NEGATIVE (NEGATIVE)
[2024-12-01] MEDS ORDERED: BUMETANIDE 0.25 MG/ML VIAL 4ML IV SCH (09:30)
[2024-12-01 10:25] VITALS: BP 171/70; O2SAT 99
[2024-12-01 18:33] VITALS: BP 171/70
[2024-12-02 02:47] VITALS: BP 178/70; O2SAT 100
[2024-12-02 08:30] VITALS: BP 174/74; O2SAT 96
[2024-12-02 15:32] LABS: BASO % 1.0 % (0.1-1.2); EOS # 0.22 (0.04-0.54); EOS % 3.1 % (0.7-7.0); LYMPH # 1.61 (1.18-3.74); LYMPH % 22.6 % (19.3-53.1); MEAN PLATELET VOLUME 11.50 fl (9.4-12.4); MONO # 0.66 (0.24-0.82); MONO % 9.3 % (4.7-12.5); NEUT # 4.54 (1.56-6.13); NEUT % 63.9 % (34.0-71.1); RED CELL DISTRIBUTION WIDTH 14.4 % (11.6-14.4)
[2024-12-02 19:38] VITALS: BP 176/73
[2024-12-03 01:29] VITALS: BP 160/65; O2SAT 98
[2024-12-03 10:20] VITALS: BP 168/68; O2SAT 100
[2024-12-03 19:15] VITALS: BP 165/65
[2024-12-04 01:22] VITALS: BP 160/71; O2SAT 100
[2024-12-04 09:44] VITALS: BP 160/66; O2SAT 100
[2024-12-04] MEDS ORDERED: AMOX-CLAV 875-1 EACH PO (12:24)
[2024-12-04] MEDS ORDERED: ELIQUIS5 MG PO (12:24)
[2024-12-04] MEDS ORDERED: DOXAZOSIN MESYLA4 MG PO (12:25)
[2024-12-04] MEDS ORDERED: PROCARDIA XL90 MG PO (12:25)
[2024-12-04] MEDS ORDERED: LIPITOR40 M1 PO (12:25)
[2024-12-04] MEDS ORDERED: AVAPRO300 MG PO (12:25)
[2024-12-04] MEDS ORDERED: GABAPENTIN300 MG PO (12:26)
[2024-12-04] MEDS ORDERED: SPIRONOLACTONE50 MG PO (12:26)
[2024-12-04] MEDS ORDERED: HYDRALAZINE HCL50 MG PO (12:26)
[2024-12-04] MEDS ORDERED: BUMETANIDE0.5 MG PO (12:27)
[2024-12-04] MEDS ORDERED: PROTEINEX-18 LI30 ML PO (12:27)
[2024-12-04] MEDS ORDERED: INSULIN GL300 UNIT/1 SUBCUTANEO (12:28)
[2024-12-04] MEDS ORDERED: HUMALOG MI100 UNIT/2 SUBCUTANEO (12:29)
== END 2024-12-04 14:25 | DRG 193 ==
LOC: ER 12:11 → MEDI 19:26 → MEDJ 11-15 11:21
PROVIDERS: General Practice; Internal Medicine; Internal Medicine Infectious Disease; Radiology Vascular & Interventional Radiology; Student in an Organized Health Care Education/Training Program; ADMIT Internal Medicine; ATTEND Internal Medicine
PROC: BB24Y0Z Computerized Tomography (CT Scan) of Bilateral Lungs using Other Contrast, Unenhanced and Enhanced (ICD-10-PCS; principal; 2024-11-13)
PROC: 4A12X4Z Monitoring of Cardiac Electrical Activity, External Approach (ICD-10-PCS; 2024-11-14)
PROC: 30233N1 Transfusion of Nonautologous Red Blood Cells into Peripheral Vein, Percutaneous Approach (ICD-10-PCS; 2024-11-14)
PROC: 0JBQ3ZZ Excision of Right Foot Subcutaneous Tissue and Fascia, Percutaneous Approach (ICD-10-PCS; 2024-11-14)
PROC: 0JB73ZZ Excision of Back Subcutaneous Tissue and Fascia, Percutaneous Approach (ICD-10-PCS; 2024-11-14)
PROC: 0W9F30Z Drainage of Abdominal Wall with Drainage Device, Percutaneous Approach (ICD-10-PCS; 2024-11-16)
PROC: BB24Y0Z Computerized Tomography (CT Scan) of Bilateral Lungs using Other Contrast, Unenhanced and Enhanced (ICD-10-PCS; 2024-11-20)
PROC: 02HV33Z Insertion of Infusion Device into Superior Vena Cava, Percutaneous Approach (ICD-10-PCS; 2024-12-01)
DX: J18.9 Pneumonia, unspecified organism (principal); I50.23 Acute on chronic systolic (congestive) heart failure; J86.9 Pyothorax without fistula; J91.8 Pleural effusion in other conditions classified elsewhere; L02.212 Cutaneous abscess of back [any part, except buttock and flank]; N39.0 Urinary tract infection, site not specified; N17.8 Other acute kidney failure; L97.518 Non-pressure chronic ulcer of other part of right foot with other specified severity; B96.29 Other Escherichia coli [E. coli] as the cause of diseases classified elsewhere; D64.9 Anemia, unspecified; E11.22 Type 2 diabetes mellitus with diabetic chronic kidney disease; I12.9 Hypertensive chronic kidney disease with stage 1 through stage 4 chronic kidney disease, or unspecified chronic kidney disease; N18.9 Chronic kidney disease, unspecified; Z79.4 Long term (current) use of insulin; I27.20 Pulmonary hypertension, unspecified; I11.0 Hypertensive heart disease with heart failure; E11.65 Type 2 diabetes mellitus with hyperglycemia; I48.91 Unspecified atrial fibrillation; R09.02 Hypoxemia; L89.152 Pressure ulcer of sacral region, stage 2

== ENCOUNTER 2024-12-25 09:45 | Inpatient (IN) | payer OTHER ==
[~2024-12-25] VITALS: Ht 175.3 cm; Wt 113.4 kg
[~2024-12-25 09:45] MED LIST changes: +AMOX-CLAV 875-1 EACH PO; +BUMETANIDE0.5 MG PO; +HUMALOG MI100 UNIT/2 SUBCUTANEO; +INSULIN GL300 UNIT/1 SUBCUTANEO
--- NOTE | 2024-12-25 10:23 | NUR ---
PTE ALERTA,ESTABLE Y ORIENTADO.YAZMIN REFIERE QUE QUE PRESENTA ENRRIQUE ULCERA EN EL CONCEPCION REBEL.
[2024-12-25] MEDS ORDERED: VANCOMYCIN HCL 1,000 MG VIAL IV SCH (10:26)
[2024-12-25] MEDS ORDERED: FAMOtidine 10 MG/ML (4ML VIAL) IV ONE (10:30)
[2024-12-25] MEDS ORDERED: 0.9 % SODIUM CHLORIDE 1,000 ML IV SCH (10:30)
[2024-12-25] MEDS ORDERED: FAMOTIDINE/PF 20 MG/2 ML VIAL ONE (10:45)
[2024-12-25] MEDS ORDERED: VANCOMYCIN HCL 1,000 MG VIAL ONE (10:45)
[2024-12-25 11:46] LABS: BASO % 0.6 % (0.1-1.2); EOS # 0.18 (0.04-0.54); EOS % 2.9 % (0.7-7.0); LYMPH # 1.44 (1.18-3.74); LYMPH % 22.9 % (19.3-53.1); MEAN PLATELET VOLUME 11.80 fl (9.4-12.4); MONO # 0.52 (0.24-0.82); MONO % 8.3 % (4.7-12.5); NEUT # 4.10 (1.56-6.13); NEUT % 65.1 % (34.0-71.1); RED CELL DISTRIBUTION WIDTH 14.9 % (11.6-14.4)
--- NOTE | 2024-12-25 11:50 | NUR ---
PTE ALERTA,ESTABLE Y ORIENTADO.SE EDUCA SOBRE EL TRATAMIENTO QUE RECIBIRA EN HOSPITAL Y YAZMIN REFIERE ENTENDER SE LE [facility] [place] Y SE LE ADMINISTRA MEDICAMENTOS ANGELINA ORDEN MEDICA
[2024-12-25 11:53] LABS: URINE APPEARANCE Clear; URINE BILIRRUBIN Negative (NEGATIVE); URINE BLOOD Small; URINE COLOR Yellow; URINE KETONE Negative (NEGATIVE); URINE LEUKOCYTE Trace; URINE NITRATE Negative; URINE UROBILINOGEN 1.0 E.U./dl
[2024-12-25 11:54] LABS: URINE RBC 96.0 uL (0.0-20.8); URINE WBC 18.1 uL (0.0-23.2)
[2024-12-25 11:55] LABS: ERYTHROCYTE SEDIMENTATION RATE 103 mm/hr (0-20)
[2024-12-25 11:56] LABS: URINE CAST 1.02 uL (0.0-1.40); URINE EPITHELIAL CELLS 1.3 uL (0.0-38.8); URINE GLUCOSE 500 MG/DL (NEGATIVE); URINE PROTEIN 300 (NEGATIVE)
[2024-12-25] MEDS ORDERED: LEVALBUTEROL HCL 1.25 MG/3 ML SOLUTION IH SCH (12:00)
[2024-12-25 12:11] LABS: INR 1.09
[2024-12-25 12:13] LABS: ALT/SGPT 23.0 U/L (12-78); AST/SGOT 25.0 U/L (15-37); BILIRUBIN TOTAL 0.3 mg/dL (0.3-1.2); BUN CREA RATIO 13.0 (7.0-25.0); CREATININE SERUM 1.04 mg/dL (0.70-1.30); GFR 71.45; GLOBULINA 5.5 G/DL (2.4-3.5)
[2024-12-25 12:41] LABS: OSMOLALITY SERUM 286.0 MOSM/KG (275-295)
[2024-12-25 12:42] LABS: GLUCOSE FASTING 223.0 mg/dL (65-100)
[2024-12-25] MEDS ORDERED: ACETAMINOPHEN 325 MG TABLET PO PRN (16:00)
[2024-12-25] MEDS ORDERED: INSULIN LISPRO 1,000 UNIT/10 ML UNITS SUBCUTANEO PRN (16:30)
[2024-12-25] MEDS ORDERED: DEXTROSE 50 % IN WATER 0.5 G/ML DISP.SYRIN IV PRN (16:30)
[2024-12-25] MEDS ORDERED: DOXAZOSIN MESYLATE 4 MG TABLET PO SCH (17:00)
[2024-12-25] MEDS ORDERED: APIXABAN 5 MG TABLET PO SCH (17:00)
[2024-12-25] MEDS ORDERED: BUMETANIDE 0.5 MG TABLET PO SCH (17:00)
[2024-12-25 17:19] VITALS: BP 130/80
[2024-12-25] MEDS ORDERED: INSULIN GLARGINE,HUM.REC.ANLOG 1,000 UNITS/10 ML UNITS SUBCUTANEO SCH (21:00)
[2024-12-25 21:33] VITALS: O2SAT 99
[2024-12-25] MEDS ORDERED: ACETAZOLAMIDE SODIUM 500 MG VIAL IV ONE (22:15)
[2024-12-26] VITALS (7 sets, daily range): BP systolic 160–194; BP diastolic 60–71; O2SAT 90–100
[2024-12-26] MEDS ORDERED: MEROPENEM 1,000 MG VIAL IV SCH ×2 (01:00→14:00)
[2024-12-26] MEDS ORDERED: LEVOTHYROXINE SODIUM 100 MCG TABLET PO SCH (06:00)
[2024-12-26 07:12] LABS: BASO % 0.8 % (0.1-1.2); EOS # 0.15 (0.04-0.54); EOS % 2.4 % (0.7-7.0); LYMPH # 1.42 (1.18-3.74); LYMPH % 22.8 % (19.3-53.1); MEAN PLATELET VOLUME 12.60 fl (9.4-12.4); MONO # 0.59 (0.24-0.82); MONO % 9.5 % (4.7-12.5); NEUT # 4.01 (1.56-6.13); NEUT % 64.3 % (34.0-71.1); RED CELL DISTRIBUTION WIDTH 14.8 % (11.6-14.4)
[2024-12-26 07:42] LABS: ALT/SGPT 19.0 U/L (12-78); AST/SGOT 16.0 U/L (15-37); BILIRUBIN TOTAL 0.3 mg/dL (0.3-1.2); BUN CREA RATIO 13.0 (7.0-25.0); CREATININE SERUM 1.2 mg/dL (0.70-1.30); GFR 60.58; GLOBULINA 5.1 G/DL (2.4-3.5); GLUCOSE FASTING 133.0 mg/dL (65-100); OSMOLALITY SERUM 288.0 MOSM/KG (275-295)
[2024-12-26] MEDS ORDERED: ACETAMINOPHEN 500 MG GEL..CAP PO PRN (07:45)
[2024-12-26] MEDS ORDERED: INSULIN LISPRO 1,000 UNIT/10 ML UNITS SUBCUTANEO SCH ×3 (08:00→17:00)
[2024-12-26] MEDS ORDERED: GABAPENTIN 300 MG CAPSULE PO SCH (09:00)
[2024-12-26] MEDS ORDERED: BUMETANIDE 0.5 MG TABLET PO SCH (09:00)
[2024-12-26] MEDS ORDERED: METOPROLOL SUCCINATE 50 MG TAB.SR.24H PO SCH (09:00)
[2024-12-26] MEDS ORDERED: CEFTRIAXONE SODIUM 2,000 MG in 0.9 % SODIUM CHLORIDE 100 ML IV SCH (09:00)
[2024-12-26] MEDS ORDERED: IRBESARTAN 300 MG TABLET PO SCH (09:00)
[2024-12-26] MEDS ORDERED: ATORVASTATIN CALCIUM 40 MG TABLET PO SCH (09:00)
[2024-12-26] MEDS ORDERED: NIFEDIPINE 90 MG TAB.SA.OSM PO SCH ×2 (09:00)
[2024-12-26] MEDS ORDERED: SPIRONOLACTONE 50 MG TABLET PO SCH (09:00)
[2024-12-26] MEDS ORDERED: MEROPENEM 1,000 MG VIAL IV NR (09:30)
[2024-12-26] MEDS ORDERED: hydrALAZINE HCL 20 MG VIAL IV PRN (10:45)
[2024-12-26] MEDS ORDERED: PANTOPRAZOLE SODIUM 40 MG/VIAL VIAL IV SCH (12:00)
[2024-12-26] MEDS ORDERED: DOXAZOSIN MESYLATE 8 MG TABLET PO SCH (17:00)
[2024-12-26] MEDS ORDERED: AMINO ACIDS/PROTEIN HYDROLYS 30 ML BLIST.PACK PO SCH (17:00)
[2024-12-26] MEDS ORDERED: INSULIN GLARGINE,HUM.REC.ANLOG 1,000 UNITS/10 ML UNITS SUBCUTANEO SCH (21:00)
[2024-12-27] VITALS (8 sets, daily range): BP systolic 160–189; BP diastolic 55–67; O2SAT 89–100
[2024-12-27] MEDS ORDERED: METOLAZONE 2.5 MG TABLET PO SCH (09:00)
[2024-12-27] MEDS ORDERED: IRON FUM,PS/FOLIC/BCOMP,C NO.9 1 CAP CAPSULE PO SCH (09:00)
[2024-12-28] VITALS (7 sets, daily range): BP systolic 152–172; BP diastolic 55–63; O2SAT 98–100
[2024-12-28] MEDS ORDERED: (FF) Daptomycin 50 MG/ML IV SCH (09:00)
[2024-12-29] VITALS (8 sets, daily range): BP systolic 110–184; BP diastolic 50–60; O2SAT 90–100
[2024-12-29 09:01] LABS: ALT/SGPT 17.0 U/L (12-78); AST/SGOT 9.0 U/L (15-37); BILIRUBIN TOTAL 0.31 mg/dL (0.3-1.2); BUN CREA RATIO 35.0 (7.0-25.0); CREATININE SERUM 1.18 mg/dL (0.70-1.30); GFR 61.76; GLOBULINA 4.8 G/DL (2.4-3.5); OSMOLALITY SERUM 308.0 MOSM/KG (275-295)
[2024-12-29 09:02] LABS: GLUCOSE FASTING 323.0 mg/dL (65-100)
[2024-12-29] MEDS ORDERED: ACETAZOLAMIDE SODIUM 500 MG VIAL IV NR (12:30)
[2024-12-30] VITALS (8 sets, daily range): BP systolic 117–150; BP diastolic 57–59; O2SAT 94–100
[2024-12-30] MEDS ORDERED: MUPIROCIN 15 GM OINT..GM TUBE NASAL SCH (09:00)
[2024-12-30] MEDS ORDERED: PANTOPRAZOLE SODIUM 40 MG TABLET.DR PO SCH (09:00)
[2024-12-30] MEDS ORDERED: CHLORHEXIDINE GLUCONATE 120 ML BOTTLE TOP SCH (09:00)
[2024-12-30] MEDS ORDERED: DOXAZOSIN MESYLATE 4 MG TABLET PO SCH (17:00)
[2024-12-31] VITALS (9 sets, daily range): BP systolic 115–150; BP diastolic 52–70; O2SAT 97–99
[2024-12-31 08:18] LABS: ALT/SGPT 20.0 U/L (12-78); AST/SGOT 14.0 U/L (15-37); BILIRUBIN TOTAL 0.31 mg/dL (0.3-1.2); BUN CREA RATIO 40.0 (7.0-25.0); CREATININE SERUM 1.54 mg/dL (0.70-1.30); GFR 45.42; GLOBULINA 5.0 G/DL (2.4-3.5); OSMOLALITY SERUM 302.0 MOSM/KG (275-295)
[2024-12-31 08:20] LABS: BASO % 1.3 % (0.1-1.2); EOS # 0.38 (0.04-0.54); EOS % 5.3 % (0.7-7.0); LYMPH # 1.47 (1.18-3.74); LYMPH % 20.6 % (19.3-53.1); MEAN PLATELET VOLUME 11.20 fl (9.4-12.4); MONO # 0.74 (0.24-0.82); MONO % 10.4 % (4.7-12.5); NEUT # 4.42 (1.56-6.13); NEUT % 62.1 % (34.0-71.1); RED CELL DISTRIBUTION WIDTH 15.1 % (11.6-14.4)
[2024-12-31 09:03] LABS: GLUCOSE FASTING 214.0 mg/dL (65-100)
[2024-12-31] MEDS ORDERED: SODIUM POLYSTYRENE SULFONATE 30G/8 TSP PO STA (13:10)
[2024-12-31] MEDS ORDERED: RINGERS SOLUTION,LACTATED 1,000 ML IV SCH (14:30)
[2025-01-01] VITALS (8 sets, daily range): BP systolic 144–174; BP diastolic 63–68; O2SAT 93–100
[2025-01-01 06:14] LABS: BASO % 1.0 % (0.1-1.2); EOS # 0.40 (0.04-0.54); EOS % 5.8 % (0.7-7.0); LYMPH # 1.48 (1.18-3.74); LYMPH % 21.6 % (19.3-53.1); MEAN PLATELET VOLUME 12.50 fl (9.4-12.4); MONO # 0.76 (0.24-0.82); MONO % 11.1 % (4.7-12.5); NEUT # 4.12 (1.56-6.13); NEUT % 60.2 % (34.0-71.1); RED CELL DISTRIBUTION WIDTH 14.8 % (11.6-14.4)
[2025-01-01 06:45] LABS: ALT/SGPT 29.0 U/L (12-78); AST/SGOT 23.0 U/L (15-37); BILIRUBIN TOTAL 0.27 mg/dL (0.3-1.2); BUN CREA RATIO 39.0 (7.0-25.0); CREATININE SERUM 1.5 mg/dL (0.70-1.30); GFR 46.82; GLOBULINA 4.6 G/DL (2.4-3.5); OSMOLALITY SERUM 308.0 MOSM/KG (275-295)
[2025-01-01 06:49] LABS: GLUCOSE FASTING 210.0 mg/dL (65-100)
[2025-01-01] MEDS ORDERED: DOXAZOSIN MESYLATE 8 MG TABLET PO SCH (17:00)
[2025-01-01] MEDS ORDERED: RINGERS SOLUTION,LACTATED 1,000 ML IV SCH (17:00)
[2025-01-01] MEDS ORDERED: MORPHINE SULFATE 4 MG/ML CARTRIDGE IV PRN (18:45)
[2025-01-01] MEDS ORDERED: INSULIN GLARGINE,HUM.REC.ANLOG 1,000 UNITS/10 ML UNITS SUBCUTANEO SCH (21:00)
[2025-01-01 21:55] LABS: BASO % 0.6 % (0.1-1.2); EOS # 0.25 (0.04-0.54); EOS % 3.5 % (0.7-7.0); LYMPH # 0.58 (1.18-3.74); LYMPH % 8.1 % (19.3-53.1); MEAN PLATELET VOLUME 12.80 fl (9.4-12.4); MONO # 0.49 (0.24-0.82); MONO % 6.8 % (4.7-12.5); NEUT # 5.81 (1.56-6.13); NEUT % 80.6 % (34.0-71.1); RED CELL DISTRIBUTION WIDTH 14.7 % (11.6-14.4)
[2025-01-02] VITALS (7 sets, daily range): BP systolic 121–157; BP diastolic 52–63; O2SAT 98–100
[2025-01-02 06:12] LABS: BASO % 1.1 % (0.1-1.2); EOS # 0.09 (0.04-0.54); EOS % 1.7 % (0.7-7.0); LYMPH # 0.94 (1.18-3.74); LYMPH % 17.7 % (19.3-53.1); MEAN PLATELET VOLUME 12.70 fl (9.4-12.4); MONO # 0.50 (0.24-0.82); MONO % 9.4 % (4.7-12.5); NEUT # 3.70 (1.56-6.13); NEUT % 69.7 % (34.0-71.1); RED CELL DISTRIBUTION WIDTH 14.8 % (11.6-14.4)
[2025-01-02 06:42] LABS: ALT/SGPT 171.0 U/L (12-78); AST/SGOT 214.0 U/L (15-37); BILIRUBIN TOTAL 0.38 mg/dL (0.3-1.2); BUN CREA RATIO 40.0 (7.0-25.0); CREATININE SERUM 1.29 mg/dL (0.70-1.30); GFR 55.72; GLOBULINA 4.1 G/DL (2.4-3.5); GLUCOSE FASTING 174.0 mg/dL (65-100); OSMOLALITY SERUM 303.0 MOSM/KG (275-295)
[2025-01-02] MEDS ORDERED: INSULIN LISPRO 1,000 UNIT/10 ML UNITS SUBCUTANEO SCH ×3 (08:00→17:00)
[2025-01-02] MEDS ORDERED: AMINO ACIDS 1 EACH TABLET PO SCH (13:00)
[2025-01-02] MEDS ORDERED: SODIUM POLYSTYRENE SULFONATE 30G/8 TSP PO STA (18:28)
[2025-01-02] MEDS ORDERED: ACETAMINOPHEN 500 MG GEL..CAP PO PRN (20:30)
[2025-01-02] MEDS ORDERED: INSULIN GLARGINE,HUM.REC.ANLOG 1,000 UNITS/10 ML UNITS SUBCUTANEO SCH (21:00)
[2025-01-03] VITALS (9 sets, daily range): BP systolic 128–141; BP diastolic 50–59; O2SAT 99–100
[2025-01-04] VITALS (8 sets, daily range): BP systolic 116–136; BP diastolic 50–58; O2SAT 97–100
[2025-01-04 08:04] LABS: BASO % 0.8 % (0.1-1.2); EOS # 0.33 (0.04-0.54); EOS % 5.4 % (0.7-7.0); LYMPH # 1.46 (1.18-3.74); LYMPH % 23.7 % (19.3-53.1); MEAN PLATELET VOLUME 13.40 fl (9.4-12.4); MONO # 0.78 (0.24-0.82); NEUT # 3.51 (1.56-6.13); NEUT % 57.1 % (34.0-71.1); RED CELL DISTRIBUTION WIDTH 14.7 % (11.6-14.4)
[2025-01-04 08:54] LABS: ALT/SGPT 69.0 U/L (12-78); AST/SGOT 23.0 U/L (15-37); BILIRUBIN TOTAL 0.47 mg/dL (0.3-1.2); BUN CREA RATIO 46.0 (7.0-25.0); CREATININE SERUM 1.27 mg/dL (0.70-1.30); GFR 56.74; GLOBULINA 4.1 G/DL (2.4-3.5); GLUCOSE FASTING 124.0 mg/dL (65-100); OSMOLALITY SERUM 306.0 MOSM/KG (275-295)
[2025-01-04 09:30] LABS: MONO % 12.7 % (4.7-12.5)
[2025-01-05] VITALS (9 sets, daily range): BP systolic 105–172; BP diastolic 50–71; O2SAT 98–100
[2025-01-06] VITALS (7 sets, daily range): BP systolic 128–185; BP diastolic 44–76; O2SAT 98–100
[2025-01-06 07:29] LABS: BASO % 0.9 % (0.1-1.2); EOS # 0.41 (0.04-0.54); EOS % 5.4 % (0.7-7.0); LYMPH # 1.22 (1.18-3.74); LYMPH % 16.0 % (19.3-53.1); MEAN PLATELET VOLUME 12.00 fl (9.4-12.4); MONO # 0.86 (0.24-0.82); MONO % 11.3 % (4.7-12.5); NEUT # 5.04 (1.56-6.13); NEUT % 66.0 % (34.0-71.1); RED CELL DISTRIBUTION WIDTH 14.7 % (11.6-14.4)
[2025-01-06 07:54] LABS: ALT/SGPT 57.0 U/L (12-78); AST/SGOT 24.0 U/L (15-37); BILIRUBIN TOTAL 0.77 mg/dL (0.3-1.2); BUN CREA RATIO 51.0 (7.0-25.0); CREATININE SERUM 1.07 mg/dL (0.70-1.30); GFR 69.14; GLOBULINA 4.3 G/DL (2.4-3.5); GLUCOSE FASTING 121.0 mg/dL (65-100); OSMOLALITY SERUM 303.0 MOSM/KG (275-295)
[2025-01-06] MEDS ORDERED: hydrALAZINE HCL 50 MG,hydrALAZINE HCL 25 MG PO SCH (13:00)
[2025-01-06 17:20] LABS: BASO % 0.6 % (0.1-1.2); EOS # 0.43 (0.04-0.54); EOS % 4.9 % (0.7-7.0); LYMPH # 1.74 (1.18-3.74); LYMPH % 19.8 % (19.3-53.1); MEAN PLATELET VOLUME 12.10 fl (9.4-12.4); MONO # 0.90 (0.24-0.82); MONO % 10.3 % (4.7-12.5); NEUT # 5.62 (1.56-6.13); NEUT % 64.1 % (34.0-71.1); RED CELL DISTRIBUTION WIDTH 15.6 % (11.6-14.4)
[2025-01-07 04:00] VITALS: BP 144/53; O2SAT 100
[2025-01-07 07:13] VITALS: BP 141/45; O2SAT 100
[2025-01-07] MEDS ORDERED: SILVER SULFADIAZINE 50 GM,NYSTATIN 30 GM,ZINC OXIDE 30 GM TOP SCH (11:00)
[2025-01-07 12:00] VITALS: BP 160/50; O2SAT 99
[2025-01-07 15:16] VITALS: BP 142/50; O2SAT 100
[2025-01-07 20:00] VITALS: BP 154/68; O2SAT 100
[2025-01-07 23:27] VITALS: BP 166/90; O2SAT 100
[2025-01-08 04:00] VITALS: BP 148/66; O2SAT 99
[2025-01-08 06:43] LABS: BASO % 0.6 % (0.1-1.2); EOS # 0.39 (0.04-0.54); EOS % 5.8 % (0.7-7.0); LYMPH # 1.26 (1.18-3.74); LYMPH % 18.8 % (19.3-53.1); MEAN PLATELET VOLUME 12.20 fl (9.4-12.4); MONO # 0.83 (0.24-0.82); NEUT # 4.17 (1.56-6.13); NEUT % 62.3 % (34.0-71.1); RED CELL DISTRIBUTION WIDTH 15.2 % (11.6-14.4)
[2025-01-08 07:02] LABS: MONO % 12.4 % (4.7-12.5)
[2025-01-08 07:13] VITALS: BP 157/42; O2SAT 100
[2025-01-08 07:31] LABS: ALT/SGPT 41.0 U/L (12-78); AST/SGOT 19.0 U/L (15-37); BILIRUBIN TOTAL 0.73 mg/dL (0.3-1.2); BUN CREA RATIO 40.0 (7.0-25.0); CREATININE SERUM 1.12 mg/dL (0.70-1.30); GFR 65.59; GLOBULINA 4.5 G/DL (2.4-3.5); GLUCOSE FASTING 130.0 mg/dL (65-100); OSMOLALITY SERUM 300.0 MOSM/KG (275-295)
[2025-01-08 12:00] VITALS: BP 168/61; O2SAT 100
[2025-01-08 14:44] VITALS: BP 161/46; O2SAT 100
[2025-01-08 20:57] VITALS: BP 174/64; O2SAT 100
[2025-01-08 23:23] VITALS: BP 159/49; O2SAT 100
[2025-01-09 04:00] VITALS: BP 129/44; O2SAT 95
[2025-01-09 06:38] LABS: BASO % 0.8 % (0.1-1.2); EOS # 0.49 (0.04-0.54); EOS % 7.4 % (0.7-7.0); LYMPH # 1.17 (1.18-3.74); LYMPH % 17.7 % (19.3-53.1); MEAN PLATELET VOLUME 12.00 fl (9.4-12.4); MONO # 0.68 (0.24-0.82); MONO % 10.3 % (4.7-12.5); NEUT # 4.20 (1.56-6.13); NEUT % 63.5 % (34.0-71.1); RED CELL DISTRIBUTION WIDTH 14.8 % (11.6-14.4)
[2025-01-09 07:21] LABS: ALT/SGPT 40.0 U/L (12-78); AST/SGOT 21.0 U/L (15-37); BILIRUBIN TOTAL 0.51 mg/dL (0.3-1.2); BUN CREA RATIO 42.0 (7.0-25.0); CREATININE SERUM 1.07 mg/dL (0.70-1.30); GFR 69.14; GLOBULINA 4.3 G/DL (2.4-3.5); GLUCOSE FASTING 154.0 mg/dL (65-100); OSMOLALITY SERUM 298.0 MOSM/KG (275-295)
[2025-01-09 07:24] VITALS: BP 151/42; O2SAT 100
[2025-01-09] MEDS ORDERED: APIXABAN 5 MG TABLET PO SCH (09:00)
[2025-01-09] MEDS ORDERED: CLOPIDOGREL BISULFATE 75 MG TABLET PO SCH (09:00)
[2025-01-09 12:00] VITALS: BP 135/50; O2SAT 100
[2025-01-09 15:06] VITALS: BP 129/83; O2SAT 100
[2025-01-09 20:00] VITALS: BP 143/47; O2SAT 100
[2025-01-09 23:26] VITALS: BP 137/48; O2SAT 100
[2025-01-10 04:00] VITALS: BP 135/52; O2SAT 100
[2025-01-10 06:54] LABS: BASO % 0.8 % (0.1-1.2); EOS # 0.60 (0.04-0.54); EOS % 8.5 % (0.7-7.0); LYMPH # 1.12 (1.18-3.74); LYMPH % 15.8 % (19.3-53.1); MEAN PLATELET VOLUME 11.80 fl (9.4-12.4); MONO # 0.78 (0.24-0.82); MONO % 11.0 % (4.7-12.5); NEUT # 4.48 (1.56-6.13); NEUT % 63.5 % (34.0-71.1); RED CELL DISTRIBUTION WIDTH 14.7 % (11.6-14.4)
[2025-01-10 07:31] VITALS: BP 155/52; O2SAT 99
[2025-01-10 07:43] LABS: ALT/SGPT 45.0 U/L (12-78); AST/SGOT 25.0 U/L (15-37); BILIRUBIN TOTAL 0.52 mg/dL (0.3-1.2); BUN CREA RATIO 44.0 (7.0-25.0); CREATININE SERUM 1.09 mg/dL (0.70-1.30); GFR 67.68; GLOBULINA 4.9 G/DL (2.4-3.5); GLUCOSE FASTING 85.0 mg/dL (65-100); OSMOLALITY SERUM 295.0 MOSM/KG (275-295)
[2025-01-10] MEDS ORDERED: CLOPIDOGREL BISULFATE 75 MG TABLET PO SCH (09:00)
[2025-01-10] MEDS ORDERED: SPIRONOLACTONE 50 MG TABLET PO SCH (09:00)
[2025-01-10 12:00] VITALS: BP 148/56; O2SAT 98
[2025-01-10 16:20] VITALS: O2SAT 99
[2025-01-10 18:16] VITALS: BP 178/71
[2025-01-10 21:17] VITALS: O2SAT 99
[2025-01-11] VITALS (9 sets, daily range): BP systolic 157–177; BP diastolic 52–64; O2SAT 96–100
[2025-01-11 06:20] LABS: BASO % 0.7 % (0.1-1.2); EOS # 0.42 (0.04-0.54); EOS % 5.9 % (0.7-7.0); LYMPH # 1.27 (1.18-3.74); LYMPH % 17.8 % (19.3-53.1); MEAN PLATELET VOLUME 11.60 fl (9.4-12.4); MONO # 0.76 (0.24-0.82); MONO % 10.7 % (4.7-12.5); NEUT # 4.61 (1.56-6.13); NEUT % 64.8 % (34.0-71.1); RED CELL DISTRIBUTION WIDTH 14.2 % (11.6-14.4)
[2025-01-11 07:10] LABS: ALT/SGPT 41.0 U/L (12-78); AST/SGOT 23.0 U/L (15-37); BILIRUBIN TOTAL 0.52 mg/dL (0.3-1.2); BUN CREA RATIO 38.0 (7.0-25.0); CREATININE SERUM 1.09 mg/dL (0.70-1.30); GFR 67.68; GLOBULINA 4.6 G/DL (2.4-3.5); GLUCOSE FASTING 150.0 mg/dL (65-100); OSMOLALITY SERUM 298.0 MOSM/KG (275-295)
[2025-01-11] MEDS ORDERED: LACTULOSE 20 G/30 ML BLIST.PACK PO STA (12:24)
[2025-01-11] MEDS ORDERED: POLYETHYLENE GLYCOL 3350 17 GM BLIST.PACK PO STA (12:53)
[2025-01-11] MEDS ORDERED: MAGNESIUM HYDROXIDE 30 ML BLIST.PACK PO STA (12:54)
[2025-01-12] VITALS (9 sets, daily range): BP systolic 137–159; BP diastolic 56–70; O2SAT 94–100
[2025-01-12 06:26] LABS: BASO % 0.8 % (0.1-1.2); EOS # 0.45 (0.04-0.54); EOS % 6.3 % (0.7-7.0); LYMPH # 1.37 (1.18-3.74); LYMPH % 19.2 % (19.3-53.1); MEAN PLATELET VOLUME 11.40 fl (9.4-12.4); MONO # 0.65 (0.24-0.82); MONO % 9.1 % (4.7-12.5); NEUT # 4.60 (1.56-6.13); NEUT % 64.5 % (34.0-71.1); RED CELL DISTRIBUTION WIDTH 14.2 % (11.6-14.4)
[2025-01-12] MEDS ORDERED: POLYETHYLENE GLYCOL 3350 17 GM BLIST.PACK PO SCH (17:00)
[2025-01-13] VITALS (9 sets, daily range): BP systolic 144–164; BP diastolic 66–70; O2SAT 89–100
[2025-01-13] MEDS ORDERED: DOXYCYCLINE HYCLATE 100MG EACH PO SCH (18:41)
[2025-01-14] VITALS (9 sets, daily range): BP systolic 124–166; BP diastolic 68–72; O2SAT 85–100
[2025-01-14] MEDS ORDERED: DOXYCYCLINE HYCLATE 100MG EACH PO NR (10:15)
[2025-01-14] MEDS ORDERED: DOXYCYCLINE HYCLATE 100MG EACH PO SCH (17:00)
[2025-01-14 22:10] LABS: BASO % 0.6 % (0.1-1.2); EOS # 0.43 (0.04-0.54); EOS % 6.4 % (0.7-7.0); LYMPH # 1.58 (1.18-3.74); LYMPH % 23.6 % (19.3-53.1); MEAN PLATELET VOLUME 11.30 fl (9.4-12.4); MONO # 0.60 (0.24-0.82); MONO % 9.0 % (4.7-12.5); NEUT # 4.02 (1.56-6.13); NEUT % 60.1 % (34.0-71.1); RED CELL DISTRIBUTION WIDTH 14.9 % (11.6-14.4)
[2025-01-14 22:31] LABS: ALT/SGPT 30.0 U/L (12-78); AST/SGOT 17.0 U/L (15-37); BILIRUBIN TOTAL 0.51 mg/dL (0.3-1.2); BUN CREA RATIO 34.0 (7.0-25.0); CREATININE SERUM 1.08 mg/dL (0.70-1.30); GFR 68.41; GLOBULINA 4.4 G/DL (2.4-3.5); OSMOLALITY SERUM 293.0 MOSM/KG (275-295)
[2025-01-14 22:41] LABS: GLUCOSE FASTING 46.0 mg/dL (65-100)
[2025-01-15] VITALS (7 sets, daily range): BP systolic 124–170; BP diastolic 55–70; O2SAT 99–100
[2025-01-15] MEDS ORDERED: APIXABAN 5 MG TABLET PO SCH (21:49)
[2025-01-16] VITALS (9 sets, daily range): BP systolic 127–160; BP diastolic 59–68; O2SAT 90–100
[2025-01-16] MEDS ORDERED: DOXAZOSIN MESYLATE 4 MG TABLET PO SCH (17:00)
[2025-01-17] VITALS (9 sets, daily range): BP systolic 135–154; BP diastolic 50–60; O2SAT 98–100
[2025-01-17 08:38] LABS: BASO % 0.6 % (0.1-1.2); EOS # 0.37 (0.04-0.54); EOS % 5.9 % (0.7-7.0); LYMPH # 1.01 (1.18-3.74); LYMPH % 16.1 % (19.3-53.1); MEAN PLATELET VOLUME 11.30 fl (9.4-12.4); MONO # 0.53 (0.24-0.82); MONO % 8.5 % (4.7-12.5); NEUT # 4.29 (1.56-6.13); NEUT % 68.6 % (34.0-71.1); RED CELL DISTRIBUTION WIDTH 14.2 % (11.6-14.4)
[2025-01-17 09:08] LABS: ALT/SGPT 27.0 U/L (12-78); AST/SGOT 18.0 U/L (15-37); BILIRUBIN TOTAL 0.51 mg/dL (0.3-1.2); BUN CREA RATIO 38.0 (7.0-25.0); CREATININE SERUM 1.17 mg/dL (0.70-1.30); GFR 62.37; GLOBULINA 5.0 G/DL (2.4-3.5); GLUCOSE FASTING 182.0 mg/dL (65-100); OSMOLALITY SERUM 301.0 MOSM/KG (275-295)
[2025-01-18 01:04] VITALS: O2SAT 100
[2025-01-18 03:17] VITALS: BP 131/68; O2SAT 98
[2025-01-18 03:56] VITALS: O2SAT 100
[2025-01-18 09:13] VITALS: O2SAT 100
[2025-01-18 09:43] VITALS: BP 152/100; O2SAT 100
[2025-01-18] MEDS ORDERED: PANTOPRAZOLE SO40 MG PO (11:06)
[2025-01-18] MEDS ORDERED: AVIDOXY100 MG PO (11:06)
[2025-01-18] MEDS ORDERED: INTEGRA PLUS C1 EACH PO (11:07)
[2025-01-18] MEDS ORDERED: CLOPIDOGREL BIS75 MG PO (11:07)
[2025-01-18] MEDS ORDERED: ELIQUIS5 MG PO (11:07)
[2025-01-18] MEDS ORDERED: COLACE100 MG PO (11:07)
[2025-01-18] MEDS ORDERED: DOXAZOSIN MESYLA4 MG PO (11:08)
[2025-01-18] MEDS ORDERED: AVAPRO300 MG PO (11:08)
[2025-01-18] MEDS ORDERED: LIPITOR40 M1 PO (11:08)
[2025-01-18] MEDS ORDERED: GABAPENTIN300 MG PO (11:09)
[2025-01-18] MEDS ORDERED: PROCARDIA XL90 MG PO (11:09)
[2025-01-18] MEDS ORDERED: SPIRONOLACTONE50 MG PO (11:09)
[2025-01-18] MEDS ORDERED: BUMETANIDE0.5 MG PO (11:10)
[2025-01-18] MEDS ORDERED: SYNTHROID100 MCG PO (11:10)
[2025-01-18] MEDS ORDERED: PRE PROTEIN1 EACH PO (11:10)
[2025-01-18] MEDS ORDERED: HUMULIN 70100 UNIT/2 SUBCUTANEO (11:11)
[2025-01-18] MEDS ORDERED: INSULIN GL100 UNIT/1 SUBCUTANEO (11:12)
[2025-01-18] MEDS ORDERED: INSULIN LISPRO 1,000 UNIT/10 ML UNITS SUBCUTANEO SCH (17:00)
== END 2025-01-18 13:21 | disposition home or self-care (01) | DRG 623 ==
LOC: ER 09:45 → MEDJ 15:54 → SEC-K 15:54 → MEDJ 17:07 → ICU 01-05 21:51 → MEDJ 01-10 14:17
PROVIDERS: General Practice; Internal Medicine; ADMIT Internal Medicine; ATTEND Internal Medicine
PROC: 3E0F7GC Introduction of Other Therapeutic Substance into Respiratory Tract, Via Natural or Artificial Opening (ICD-10-PCS; 2024-12-25)
PROC: 4A12X4Z Monitoring of Cardiac Electrical Activity, External Approach (ICD-10-PCS; 2024-12-25)
PROC: 0JBR0ZZ Excision of Left Foot Subcutaneous Tissue and Fascia, Open Approach (ICD-10-PCS; principal; 2024-12-26)
PROC: 8E0ZXY6 Isolation (ICD-10-PCS; 2024-12-26)
PROC: BQ3MZZZ Magnetic Resonance Imaging (MRI) of Left Foot (ICD-10-PCS; 2024-12-26)
PROC: BQ3MYZZ Magnetic Resonance Imaging (MRI) of Left Foot using Other Contrast (ICD-10-PCS; 2024-12-26)
PROC: B54BZZZ Ultrasonography of Right Lower Extremity Veins (ICD-10-PCS; 2025-01-01)
PROC: B44FZZZ Ultrasonography of Right Lower Extremity Arteries (ICD-10-PCS; 2025-01-02)
PROC: 30233N1 Transfusion of Nonautologous Red Blood Cells into Peripheral Vein, Percutaneous Approach (ICD-10-PCS; 2025-01-02)
PROC: 30233K1 Transfusion of Nonautologous Frozen Plasma into Peripheral Vein, Percutaneous Approach (ICD-10-PCS; 2025-01-04)
PROC: BW21ZZZ Computerized Tomography (CT Scan) of Abdomen and Pelvis (ICD-10-PCS; 2025-01-05)
PROC: B44FZZZ Ultrasonography of Right Lower Extremity Arteries (ICD-10-PCS; 2025-01-07)
PROC: BW21ZZZ Computerized Tomography (CT Scan) of Abdomen and Pelvis (ICD-10-PCS; 2025-01-09)
PROC: 4A033R1 Measurement of Arterial Saturation, Peripheral, Percutaneous Approach (ICD-10-PCS; 2025-01-17)
DX: E11.621 Type 2 diabetes mellitus with foot ulcer (principal); I16.9 Hypertensive crisis, unspecified; T81.718A Complication of other artery following a procedure, not elsewhere classified, initial encounter; J90 Pleural effusion, not elsewhere classified; L97.929 Non-pressure chronic ulcer of unspecified part of left lower leg with unspecified severity; E11.65 Type 2 diabetes mellitus with hyperglycemia; L89.152 Pressure ulcer of sacral region, stage 2; N17.9 Acute kidney failure, unspecified; D50.9 Iron deficiency anemia, unspecified; I50.9 Heart failure, unspecified; L89.899 Pressure ulcer of other site, unspecified stage; B95.62 Methicillin resistant Staphylococcus aureus infection as the cause of diseases classified elsewhere; Z74.01 Bed confinement status; I72.8 Aneurysm of other specified arteries; I73.9 Peripheral vascular disease, unspecified; Z78.9 Other specified health status; Z86.73 Personal history of transient ischemic attack (TIA), and cerebral infarction without residual deficits; E11.8 Type 2 diabetes mellitus with unspecified complications; R09.02 Hypoxemia; N18.9 Chronic kidney disease, unspecified; R60.0 Localized edema